=== PATIENT | male | born 1960 | race Caucasian/White ===

== ENCOUNTER 2025-05-21 18:06 | Inpatient (IN) | payer BC, SELFPAY ==
--- NOTE | ~2025-05-21 | NM_ITS ---
Nuclear Medicine Procedure: Hepatobiliary Scan Interpretation: Following intravenous administration of 5.6 mCi. of technetium 99m Choletec, serial i mages obtained reveal prompt concentration by the liver which is normal in size and without any focal abnormalities. There is normal excretion from the liver, with probable small bowel visualization. G allbladder nonvisualized at 1 hour imaging, nor at 4 hour delayed imaging. Impression: Cystic duct obstruction.. Reviewed, dictated and finalized at location M. Impression: Cystic duct obstruction..
--- NOTE | ~2025-05-21 | US_ITS ---
BILATERAL LOWER EXTREMITY VENOUS ULTRASOUND Ordering provider: Bhavin Sampson MD History: . eval for DVT . Comparison: None. FINDINGS: RIGHT LOWER EXTREMITY VEINS: --COMMON FEMORAL: Patent and free of thrombus. Normal compressibility, phasic flow and augmentation. --PROXIMAL SUPERFICIAL FEMORAL: Patent and free of thrombus. Normal compressibility, phasic flow and augmentation. --DISTAL SUPERFICIAL FEMORAL: Patent and free of thrombus. Normal compressibility, phasic flow and au gmentation. --POPLITEAL: Patent and free of thrombus. Normal compressibility, phasic flow and augmentation. --POSTERIOR TIBIAL: Patent and free of thrombus. Normal compressibility, phasic flow and augmentation . LEFT LOWER EXTREMITY VEINS: --COMMON FEMORAL: Patent and free of thrombus. Normal compressibility, phasic flow and augmentation. --PROXIMAL SUPERFICIAL FEMORAL: Patent and free of thrombus. Normal compressibility, phasic flow and augmentation. --DISTAL SUPERFICIAL FEMORAL: Patent and free of thrombus. Normal compressibility, phasic flow and au gmentation. --POPLITEAL: Patent and free of thrombus. Normal compressibility, phasic flow and augmentation. --POSTERIOR TIBIAL: Patent and free of thrombus. Normal compressibility, phasic flow and augmentation . IMPRESSION: Negative bilateral lower extremity venous US. No deep vein thrombosis. Reviewed, dictated and finalized at location A.
--- NOTE | ~2025-05-21 | US_ITS ---
Limited ABDOMINAL ULTRASOUND (Doppler ultrasound interrogation techniques used as needed for this exa m.) Ordering provider: Bhavin Sampson History: . RUQ pain . Comparison: None. FINDINGS: PANCREAS: Not visualized. PORTAL VEIN: Hepatopedal flow demonstrated. LIVER: Partially obscured by bowel gas. Normal size and echotexture. No focal hepatic lesions. Minima l Perihepatic fluid collections identified anteriorly. BILIARY DUCTS: No intra or extrahepatic biliary dilation. Common bile duct measures 4.7 mm in diamete r which is normal for patient's age. GALLBLADDER: Stone is seen in the neck of the gallbladder measuring 2.1 cm. Sludge, gallbladder wall thickening and pericholecystic fluid are noted. Wall thickness is 5 mm. Negative sonographic Avalos's sign. FREE FLUID: None visualized within the upper abdomen. IMPRESSION: Cholelithiasis with highly suggestive cholecystitis. Clinical correlation advised. Otherwise, normal limited abdominal ultrasound. Reviewed, dictated and finalized at location A. IMPRESSION: Cholelithiasis with highly suggestive cholecystitis. Clinical correlation advis ed. Otherwise, normal limited abdominal ultrasound.
--- NOTE | ~2025-05-21 | CT_ITS ---
EXAMINATION: CTA chest PE abdomen pel DATE: 05/21/2025 23:32 INDICATION: chest pain, RUQ abdominal pain TECHNIQUE: Computed tomography angiography (CTA) of the chest was performed with 100 mL Omnipaque-350 intravenous contrast timed to evaluate the pulmonary arteries, followed by portal venous phase imagi ng of the abdomen and pelvis. Coronal maximum intensity projection 3D-reconstructions were created by the technologist. The dose-length product (DLP) was 683.03 mGy-cm. Automated exposure control and it erative reconstruction technique were employed. COMPARISON: None. FINDINGS: CHEST: Lung parenchyma and airways: Mild septal thickening. Dependent scar/atelectasis. Granulomatous calcif ications. 3 mm calcification in a superior segment right lower lobe bronchus, with distal tubular opa cification. Remaining airways are clear. Calcified granulomas. Pleura: Unremarkable. Thoracic inlet, axillae and chest wall: No thyroid or soft tissue mass. Thoracic aorta: The ascending thoracic aorta is dilated to 4.0 cm. Mediastinum: Mildly dilated central pulmonary arteries as can be seen with pulmonary hypertension. Heart and pericardium: Enlarged heart. No pericardial effusion. RV/LV ratio less than 1. Coronary artery calcifications: . Thoracic bones: No acute osseous finding. Pulmonary arteries: Study quality: Exam limited by beam hardening and motion artifact limiting evalua tion of segmental and subsegmental pulmonary arteries. No central pulmonary emboli detected. Small no nocclusive subsegmental emboli are suspected in the right upper lobe (image 79/239) and the right low er lobe image 123/239). ABDOMEN/PELVIS: Liver: Enlarged. No focal lesions detected. Biliary/Gallbladder: The gallbladder is distended with surrounding inflammatory stranding mild gallbl adder wall edema. No bile duct dilation. Pancreas: No mass or duct dilation. Spleen: Normal. Adrenals: Normal right adrenal. 2.0 cm indeterminate density left adrenal mass. Kidneys: No suspicious mass, obstructing stone, or hydronephrosis. Excreted contrast in the renal jose yces could obscure small calcifications. Simple right midpole cyst. Subcentimeter left renal hypodens ities, too small to characterize but most likely represent cysts. GI tract: Small hiatal hernia. No small or large bowel dilation. Appendix not confidently visualized. Diverticulosis without diverticulitis. Mesentery/Peritoneum: Enlarged biju hepatic and peripancreatic lymph nodes. Mild mesenteric edema wi th fat halos surrounding prominent mesenteric lymph nodes. Retroperitoneum: No mass. Pelvis: Normal urinary bladder. Mild prostatomegaly. Trace free pelvic fluid Soft Tissues: Small, fat-containing umbilical and bilateral inguinal hernias. Abdominopelvic bones: No acute osseous finding. IMPRESSION: Limited evaluation of segmental and subsegmental pulmonary arteries. No central embolus detected. Sma ll subsegmental nonocclusive emboli are suspected in the right upper and lower lobes. This would repr esent a small clot burden. No CT evidence of right heart strain. 3 mm broncholith with distal mucoid impaction in the superior segment of the right lower lobe. Mild interstitial edema. Mild aortic ectasia. Cardiomegaly. Hepatomegaly. Acute cholecystitis. Fluid tracking along the common bile duct with mild duct hyperemia, presumably r eactive, unless there are additional signs or symptoms of cholangitis. Biju hepatic and peripancreatic lymphadenopathy. 2.0 cm indeterminate density left adrenal mass. Recommend nonemergent but timely outpatient adrenal C T. Mesenteric panniculitis. Reviewed, dictated and finalized at location K. IMPRESSION: Limited evaluation of segmental and subsegmental pulmonary arteries. No central embolus detected. Small subsegmental nonocclusive emboli are suspected in the right upper and lower lobes. This would represent a small clot burden. No CT ev idence of right heart strain. 3 mm broncholith with distal mucoid impaction in the superior segment of the ri ght lower lobe. Mild interstitial edema. Mild aortic ectasia. Cardiomegaly. Hepatomegaly. Acute cholecystitis. Fluid tracking along the common bile duct with mild duct h yperemia, presumably reactive, unless there are additional signs or symptoms of cholangitis. Biju hepatic and peripancreatic lymphadenopathy. 2.0 cm indeterminate density left adrenal mass. Recommend nonemergent but timel y outpatient adrenal CT. Mesenteric panniculitis.
--- NOTE | ~2025-05-21 | XR_ITS ---
EXAMINATION: XR chest 2V Exam Date/Time: 05/21/2025 18:10 CDT HISTORY: chest pain SINCE LAST NIGHT Comparison: 01/13/2018. RESULT: Lines, tubes, and devices: None. Lungs and pleura: Clear. Granulomatous calcifications. Cardiomediastinal silhouette: Stable. Other: No acute osseous or upper abdominal finding. IMPRESSION: No acute cardiopulmonary process. Reviewed, dictated and finalized at location K.
--- NOTE | 2025-05-21 18:08 | ECG_ITS ---
Test Date: 2025-05-21 18:42:49 Measurements Intervals [place] Rate: 65 P: 37 [place]: 187 QRS: -18 QRSD: 109 T: 3 QT: 387 QTc: 405 Interpretive Statements SINUS RHYTHM LEFTWARD AXIS POOR R-WAVE PROGRESSION BORDERLINE ECG No previous ECG available for comparison Electronically Signed On 05-22-2025 07:38:48 CDT by Danny Amaro M.D.
--- OUTSIDE RECORDS SUMMARY | 2025-05-21 18:08 | XMS_ITS | Referral Summary ---
Author Organization [facility] Address [address] [place] [address] Care Team Providers Care Costume Specialist Name Role Phone Bhavin Jackson MD Primary Care Provider [phone] Allergies No known active allergies Medications lisinopril-hydro CHLOROthiazide (ZESTORETIC) 10-12.5 mg per tabletIndication s:hypertension Take 1 tablet by mouth cylinder loader before breakfast Active celecoxib (CeleBREX) 200 mg capsuleIndicatio ns:Osteoarthriti s,Postoperative Acute Pain TAKE 2 PILLS WITH BREAKFAST THE DAY BEFORE SX. TAKE 1 PILL BID AFTER DISCHARGE. 10 capsule 9 Active famotidine (PEPCID) 10 mg tabletIndication s:gerd Take 10 mg by mouth 2 (two) times a day as needed for heartburn Active docosahexanoic acid/epa (FISH OIL ORAL)Indications :supplement Take 1 tablet by mouth every other day Active aspirin 325 mg enteric coated tabletIndication s:Deep Vein Thrombosis Prevention Take 1 tablet (325 mg total) by mouth 2 (two) times a day 84 tablet 9 Active oxyCODONE-acetam inophen (PERCOCET) 5-325 mg per tabletIndication s:Pain Take 1-2 tablets by mouth every 4 (four) hours as needed for pain 56 tablet 9 Active traMADol (ULTRAM) 50 mg tabletIndication s:Status post total left knee replacement Take 1 tablet (50 mg total) by mouth every 6 (six) hours as needed for pain 42 tablet 0 Active amoxicillin (amoxicillin) 500 mg tablet/capsuleIn dications:Prophy laxis, Medical Take 1 tablet/capsule (500 mg total) by mouth as directed TAKE 4 PILL 1 HOUR BEFORE DENTAL APPOINTMENT. 12 tablet/capsul e 0 Active Active Problems Problem Noted Date Diagnosed Date HTN (hypertension) 10/23/2019 Risk factors for obstructive sleep apnea 019 Primary osteoarthritis of left knee 09/30/2019 Overview (09/30/2019): Added automatically from request for surgery [id number] Surgical follow-up care 02/23/2017 Neoplasm of skin of back 02/13/2017 Overview (02/15/2018): Description: Ddx cyst. Cyst excision performed today (see procedure note). F/u path. Wound care. Suture removal in 2 wks. Neoplasm of skin of thigh 02/13/2017 Overview (02/15/2018): Description: Ddx nevus lipomatosus vs dermal nevus vs skin tag. Shave bx today. F/u path. Wound care. Eczema 01/12/2017 Overview (02/15/2018): Description: HC 1% cr OTC bid x 2 wks, if not better at next visit, will consider bx. Reassurance today. Sebaceous cyst 01/12/2017 Overview (02/15/2018): Description: noninflammed today, benign and reassurance. WIll schedule for P40 for excision due to sx. Skin neoplasm 01/12/2017 Overview (02/15/2018): Description: L post thigh- ddx: skin tag vs nevus. Benign and reassurance but will schedule for shave removal due to sx Annotation: Back Left posterior leg Social History Tobacco Use Types Packs/Day Years Used Date Smoking Tobacco: Never Smokeless Tobacco: Never Sex and Gender Information Value Date Recorded Sex Assigned at Not on file Legal Sex Male 6:34 AM COMMERCIAL CENSUS TAKER Gender Identity Not on file Sexual Orientation Not on file Last Filed Vital Signs Vital Sign Reading Time Taken Comments Blood Pressure 116/69 11/04/2019 2:00 PM COMMERCIAL CENSUS TAKER Pulse 75 11/04/2019 2:00 PM COMMERCIAL CENSUS TAKER Temperature 36.2 C (97.2 F) 09/15/2020 2:06 PM COMMERCIAL CENSUS TAKER Respiratory Rate 19 11/04/2019 2:00 PM COMMERCIAL CENSUS TAKER Oxygen Saturation 94% 11/04/2019 2:00 PM COMMERCIAL CENSUS TAKER Inhaled Oxygen Concentration - - Weight 93.7 kg (206 lb 9.6 oz) 11/04/2019 11:00 AM COMMERCIAL CENSUS TAKER Height 177.8 cm (5' 10) 11/04/2019 11:00 AM COMMERCIAL CENSUS TAKER Body Mass Index 29.64 11/04/2019 11:00 AM COMMERCIAL CENSUS TAKER Plan of Treatment Not on file Medical Devices Implanted Type Area Servicing Rep Device Identifier Shelf Expiration Date Model / Serial / Lot [employer]ine [employer] [id number] Persona Cruciate Retaining Knee Left 10 Standard Component - S - [id number] Implanted:Qty: 1 on 11/04/2019 by Bhavin Nick MD at [facility] Other - see comments Left: Knee [employer] [id number] 05/04/2029 [id number] / / [id number] [employer] [id number] Persona 16mm Cruciate Retain Knee Left 8-11 Ef Insert Articular Latex Free - S - [id number] Implanted:Qty: 1 on 11/04/2019 by Bhavin Nick MD at [facility] Other - see comments Left: Knee [employer] [id number] 02/03/2024 [id number] / / [id number] [employer] [id number] Persona 2 Peg Knee Left E Baseplate Tibial Trabecular Metal - S - [id number] Implanted:Qty: 1 on 11/04/2019 by Bhavin Nick MD at [facility] Other - see comments Left: Knee [employer] [id number] 09/04/2029 [id number] / / [id number] Insurance [facility] PLUS [place] [id number] Advance Directives For more information, please contact: [phone] * Full Code (Latest Code Status on File) Date Activated Date Inactivated Comments 11/04/2019 10:50 AM 11/05/2019 12:47 AM Care Teams Costume Specialist Relationship Specialty Start Date End Date Bhavin Jackson MD [address] [facility] [address] [place] [address] PCP - General Internal Medicine 08/28/19
--- OUTSIDE RECORDS SUMMARY | 2025-05-21 18:08 | XMS_ITS | Clinical Summary ---
Author Organization [facility] Address [address] [place] [address] Care Team Providers Care Welder/Fitter Name Role Phone Bhavin Jackson MD Primary Care Provider [phone] Allergies No known active allergies Medications lisinopril-hydro CHLOROthiazide (ZESTORETIC) 10-12.5 mg per tabletIndication s:hypertension Take 1 tablet by mouth machine egg washer before breakfast Active celecoxib (CeleBREX) 200 mg [...] (09/30/2019): Added automatically from request for surgery [id number] Surgical follow-up care 02/23/2017 Neoplasm of skin [...] to sx Annotation: Back Left posterior leg Surgical History Surgery Date Site/Laterality Comments KNEE ARTHROSCOPY SHOULDER SURGERY COLONOSCOPY Medical History Medical History Date Comments Hypertension Osteoarthritis GERD (gastroesophageal reflux disease) Family History Medical History Relation Name Comments Cancer Father Heart disease Father Anesthesia problems Neg Hx Relation Name Status Comments Father Social History Tobacco Use Types Packs/Day Years Used Date Smoking Tobacco: Never Smokeless Tobacco: Never Sex and Gender Information Value Date Recorded Sex Assigned at Not on file Legal Sex Male 6:34 AM WINE PASTEURIZER Gender Identity Not on file Sexual Orientation Not on file Obstetrics History Last Filed Vital Signs Vital Sign Reading Time Taken Comments Blood Pressure 116/69 11/04/2019 2:00 PM WINE PASTEURIZER Pulse 75 11/04/2019 2:00 PM WINE PASTEURIZER Temperature 36.2 C (97.2 F) 09/15/2020 2:06 PM WINE PASTEURIZER Respiratory Rate 19 11/04/2019 2:00 PM WINE PASTEURIZER Oxygen Saturation 94% 11/04/2019 2:00 PM WINE PASTEURIZER Inhaled Oxygen Concentration - - Weight 93.7 kg (206 lb 9.6 oz) 11/04/2019 11:00 AM WINE PASTEURIZER Height 177.8 cm (5' 10) 11/04/2019 11:00 AM WINE PASTEURIZER Body Mass Index 29.64 11/04/2019 11:00 AM WINE PASTEURIZER Plan of Treatment Not on file Medical Devices Implanted Type Area Certified Court Interpreter Device Identifier Shelf Expiration Date Model / Serial / Lot [employer] [id number] Persona Cruciate Retaining Knee Left 10 Standard Component - S - [id number] Implanted:Qty: 1 on 11/04/2019 by Bhavin Nick MD at [facility] Other - see comments Left: Knee [employer] [id number] 05/04/2029 [id number] / / [id number] [employer] [id number] Persona 16mm Cruciate Retain Knee Left 8-11 Ef Insert Articular Latex Free - S - [id number] Implanted:Qty: 1 on 11/04/2019 by Bhavin Nick MD at [facility] Other - see comments Left: Knee [employer] [id number] 02/03/2024 [id number] / / [id number] [employer] [id number] Persona 2 Peg Knee Left E Baseplate Tibial Trabecular Metal - S - [id number] Implanted:Qty: 1 on 11/04/2019 by Bhavin Nick MD at [facility] Other - see comments Left: Knee [employer] [id number] 09/04/2029 [id number] / / [id number] Insurance [facility] PL[facility] PL[facility] Advance Directives For more information, please contact: [phone] * Full Code (Latest Code Status on File) Date Activated Date Inactivated Comments 11/04/2019 10:50 AM 11/05/2019 12:47 AM Care Teams Welder/Fitter Relationship Specialty Start Date End Date Bhavin Jackson MD [address] [place] [address] PCP - General Internal Medicine 08/28/19
--- OUTSIDE RECORDS SUMMARY | 2025-05-21 18:08 | XMS_ITS | Encounter Summary ---
Author Organization [facility] Healthcare Address [address] [place] [address] Care Team Providers Care Chief Jailer Name Role Phone Bhavin Jackson MD Primary Care Provider [phone] Encounter Details Date Type Department Care Team (Late st Contact Info) Description 11/06/2019 Documentation [facility] Case Management [address] [place] [address] Lakesha Saez RN Social History Tobacco Use Types Packs/Day Years Used Date Smoking Tobacco: Never Smokeless Tobacco: Never Sex and Gender Information Value Date Recorded Sex Assigned at Not on file Legal Sex Male 6:34 AM DIRECTOR DIGITAL COMMUNICATIONS Gender Identity Not on file Sexual Orientation Not on file documented as of this encounter Plan of Treatment Not on file documented as of this encounter Visit Diagnoses Not on filedocumented in this encounter Care Teams Chief Jailer Relationship Specialty Start Date End Date Bhavin Jackson MD [address] [facility] [address] [place] [address] PCP - General Internal Medicine 08/28/19 documented as of this encounter
[2025-05-21 18:24] VITALS: BP 126/83; PULSE 69; RESP 16; TEMP 36.4; O2SAT 100
[2025-05-21 18:50] LABS: Hematocrit 37.9 % (42.0-52.0); Hemoglobin 12.5 g/dL (14.0-18.0); Immature Granulocyte Percent A 0.5 % (0-0.5); Lymphocytes Absolute Auto 1.49 K/mm3 (0.9-3.2); Mean Corpuscular HGB Conc 33.0 g/dl (32-36); Mean Corpuscular Hemoglobin 31.9 pg (26-34); Mean Corpuscular Volume 96.7 fl (80-100); Nucleated Red Blood Cells Absolute Auto 0.000 K/mm3 (0.0-0.012); Nucleated Red Blood Cells Perc 0.0 % (0.0-0.2); Platelet Count Result 338 k/mm3 (150-375); Red Blood Count 3.92 M/mm3 (4.6-6.20); White Blood Count 13.3 K/mm3 (4.5-10.0)
[2025-05-21 19:01] LABS: INR 1.1; Prothrombin Time 14.1 Seconds (11.1-14.7)
[2025-05-21 19:02] LABS: Partial Thromboplastin Time 34.4 Seconds (22.3-36.8)
[2025-05-21 19:14] LABS: Troponin I < 0.012 ng/mL (0.000-0.034)
[2025-05-21 19:23] LABS: Alanine Aminotransferase 16 U/L (6-50); Albumin Level 4.3 g/dL (3.5-5.1); Alkaline Phosphatase 53 U/L (38-126); Anion Gap 13 mmol/L (4-12); Aspartate Amino Transferase 28 U/L (17-59); Bilirubin,Total 0.6 mg/dL (0.2-1.3); Blood Urea Nitrogen 16 mg/dL (9-20); Calcium 9.1 mg/dL (8.4-10.2); Carbon Dioxide 22 mmol/L (22-30); Chloride 101 mmol/L (98-107); Estimated CRCL calculation 88 ml/min; Estimated Glomerular Filt Rate > 60; Glucose 114 mg/dL (65-110); Lipase 79 U/L (23-300); Potassium 3.5 mmol/L (3.4-5.0); Sodium 136 mmol/L (137-145); Total Protein 7.7 g/dL (6.3-8.2)
--- NOTE | 2025-05-21 22:01 | ECG_ITS ---
Test Date: 2025-05-21 22:19:15 Measurements Intervals [place] Rate: 70 P: 33 SC: 177 QRS: -23 QRSD: 121 T: 11 QT: 414 QTc: 448 Interpretive Statements SINUS RHYTHM POOR R-WAVE PROGRESSION LEFTWARD AXIS BORDERLINE ECG Compared to ECG 05/21/2025 18:42:49 NO DIFFERENCE Electronically Signed On 05-22-2025 07:45:00 CDT by Danny Amaro M.D.
--- OUTSIDE RECORDS SUMMARY | 2025-05-21 22:31 | XMS_ITS | Encounter Summary ---
Author Organization [facility] Healthcare Address [address] [place] [address] Care Team Providers Care Welder Tool And Die Name Role Phone Bhavin Jackson MD Primary Care Provider [phone] Encounter Details Date Type Department Care Team (Late st Contact Info) Description 11/06/[address] [facility] Case Management [address] [place] [address] Lakesha Saez RN Social History Tobacco Use Types Packs/Day Years Used Date Smoking Tobacco: Never Smokeless Tobacco: Never Sex and Gender Information Value Date Recorded Sex Assigned at Not on file Legal Sex Male 6:34 AM CASH SURRENDER CALCULATOR Gender Identity Not on file Sexual Orientation Not on file documented as of this encounter Plan of Treatment Not on file documented as of this encounter Visit Diagnoses Not on filedocumented in this encounter Care Teams Welder Tool And Die Relationship Specialty Start Date End Date Bhavin Jackson MD [address] [facility] [address] [place] [address] PCP - General Internal Medicine 08/28/19 documented as of this encounter
--- OUTSIDE RECORDS SUMMARY | 2025-05-21 22:31 | XMS_ITS | Clinical Summary ---
Author Organization [facility] Address [address] [place] [address] Care Team Providers Care Seals Engraver Name Role Phone Bhavin Jackson MD Primary Care Provider [phone] Allergies No known active allergies Medications lisinopril-hydro CHLOROthiazide (ZESTORETIC) 10-12.5 mg per tabletIndication s:hypertension Take 1 tablet by mouth sanitary inspector before breakfast Active celecoxib (CeleBREX) 200 mg [...] (09/30/2019): Added automatically from request for surgery [id number] Surgical follow-up care 02/23/2017 Neoplasm of skin [...] on file Legal Sex Male 6:34 AM SENIOR ASP NET DEVELOPER Gender Identity Not on file Sexual Orientation Not on file Obstetrics History Last Filed Vital Signs Vital Sign Reading Time Taken Comments Blood Pressure 116/69 11/04/2019 2:00 PM SENIOR ASP NET DEVELOPER Pulse 75 11/04/2019 2:00 PM SENIOR ASP NET DEVELOPER Temperature 36.2 C (97.2 F) 09/15/2020 2:06 PM SENIOR ASP NET DEVELOPER Respiratory Rate 19 11/04/2019 2:00 PM SENIOR ASP NET DEVELOPER Oxygen Saturation 94% 11/04/2019 2:00 PM SENIOR ASP NET DEVELOPER Inhaled Oxygen Concentration - - Weight 93.7 kg (206 lb 9.6 oz) 11/04/2019 11:00 AM SENIOR ASP NET DEVELOPER Height 177.8 cm (5' 10) 11/04/2019 11:00 AM SENIOR ASP NET DEVELOPER Body Mass Index 29.64 11/04/2019 11:00 AM SENIOR ASP NET DEVELOPER Plan of Treatment Not on file Medical Devices Implanted Type Area School Manager Device Identifier Shelf Expiration Date Model / Serial / Lot [employer] [id number] Persona Cruciate Retaining Knee Left 10 Standard Component - S - [id number] Implanted:Qty: 1 on 11/04/2019 by Bhavin Nick MD at [facility] Other - see comments Left: Knee [employer] [id number] 05/04/2029 [id number] / / [id number] [employer] [id number] Persona 16mm Cruciate Retain Knee Left 8-11 Ef Insert Articular Latex Free - S - [id number] Implanted:Qty: 1 on 11/04/2019 by Bhavin Nick MD at [facility] Other - see comments Left: Knee [employer] [id number] 02/03/2024 [id number] / / [id number] [employer] [id number] Persona 2 Peg Knee Left E Baseplate Tibial Trabecular Metal - S - [id number] Implanted:Qty: 1 on 11/04/2019 by Bhavin Nick MD at [facility] Other - see comments Left: Knee [employer] [id number] 09/04/2029 [id number] / / [id number] Insurance [facility] PL[facility] PL[facility] Advance Directives For more information, please contact: [phone] * Full Code (Latest Code Status on File) Date Activated Date Inactivated Comments 11/04/2019 10:50 AM 11/05/2019 12:47 AM Care Teams Seals Engraver Relationship Specialty Start Date End Date Bhavin Jackson MD [address] [place] [address] PCP - General Internal Medicine 08/28/19
--- OUTSIDE RECORDS SUMMARY | 2025-05-21 22:31 | XMS_ITS | Referral Summary ---
Author Organization [facility] Address [address] [place] [address] Care Team Providers Care Content Production Specialist Name Role Phone Bhavin Jackson MD Primary Care Provider [phone] Allergies No known active allergies Medications lisinopril-hydro CHLOROthiazide (ZESTORETIC) 10-12.5 mg per tabletIndication s:hypertension Take 1 tablet by mouth alodize machine helper before breakfast Active celecoxib (CeleBREX) 200 mg [...] (09/30/2019): Added automatically from request for surgery [id number] Surgical follow-up care 02/23/2017 Neoplasm of skin [...] on file Legal Sex Male 6:34 AM FIGHTER PILOT Gender Identity Not on file Sexual Orientation Not on file Last Filed Vital Signs Vital Sign Reading Time Taken Comments Blood Pressure 116/69 11/04/2019 2:00 PM FIGHTER PILOT Pulse 75 11/04/2019 2:00 PM FIGHTER PILOT Temperature 36.2 C (97.2 F) 09/15/2020 2:06 PM FIGHTER PILOT Respiratory Rate 19 11/04/2019 2:00 PM FIGHTER PILOT Oxygen Saturation 94% 11/04/2019 2:00 PM FIGHTER PILOT Inhaled Oxygen Concentration - - Weight 93.7 kg (206 lb 9.6 oz) 11/04/2019 11:00 AM FIGHTER PILOT Height 177.8 cm (5' 10) 11/04/2019 11:00 AM FIGHTER PILOT Body Mass Index 29.64 11/04/2019 11:00 AM FIGHTER PILOT Plan of Treatment Not on file Medical Devices Implanted Type Area Bulk Tank Car Unloader Device Identifier Shelf Expiration Date Model / Serial / Lot Maxine [employer] [id number] Persona Cruciate Retaining Knee Left 10 Standard Component - S - [id number] Implanted:Qty: 1 on 11/04/2019 by Bhavin Nick MD at [facility] Other - see comments Left: Knee [employer] [id number] 05/04/2029 [id number] / / [id number] [employer] [id number] Persona 16mm Cruciate Retain Knee Left 8-11 Ef Insert Articular Latex Free - S - [id number] Implanted:Qty: 1 on 11/04/2019 by Bhavin Nick MD at [facility] Other - see comments Left: Knee [employer] [id number] 02/03/2024 [id number] / / [id number] [employer]ine [employer] [id number] Persona 2 Peg Knee Left E Baseplate Tibial Trabecular Metal - S - [id number] Implanted:Qty: 1 on 11/04/2019 by Bhavin Nick MD at [facility] Other - see comments Left: Knee [employer] [id number] 09/04/2029 [id number] / / [id number] Insurance [facility] PLUS [facility] PLUS [facility] CHO[facility] PLUS [place] [id number] Advance Directives For more information, please contact: [phone] * Full Code (Latest Code Status on File) Date Activated Date Inactivated Comments 11/04/2019 10:50 AM 11/05/2019 12:47 AM Care Teams Content Production Specialist Relationship Specialty Start Date End Date Bhavin Jackson MD [address] [facility] [address] [place] [address] PCP - General Internal Medicine 08/28/19
--- NOTE | 2025-05-21 22:33 | ED.CHESTPAIN ---
HPI - Chest Pain General Chief Complaint: Chest Pain Stated Complaint: chest pain Time Seen by Provider: 05/21/25 21:53 History of Present Illness HPI narrative: Patient is a 64-year-old male who presents to the ER with chest pain that started earlier today. He reports the chest pain has now resolved but the pain has moved to his right upper abdomen. Patient reports on Sunday he had a dental procedure done where he had a crown placed. He reports he was given 2 mg of Ativan p.o. the night before the procedure and then took another 2 mg of Ativan the morning of the procedure, as prescribed by his dentist. Patient's reports he has had ?brain fog,excessive sleeping and increased fatigue for the past 48 hours since he took the medication. He endorses a history high blood pressure and glaucoma. Patient denies any shortness of breath, back pain, or recent fevers. Related Data Allergies Allergy/AdvReac Type Severity Reaction Status Date / Time No Known Allergies Allergy Unverified 01/13/18 05:01 Review of Systems Review of Systems: All systems reviewed & are unremarkable except as noted in HPI and below PMFSH Family History Family History Other Diabetes mellitus Family history of primary malignant neoplasm of liver Hypertension Social History Social History Smoking status: Never smoker Alcohol intake: current Exam Narrative: GENERAL: Well appearing, well-nourished, non-toxic, in no acute distress. HEAD: Normocephalic, atraumatic. NECK: Supple. No adenopathy, no masses. RESPIRATORY: Airway patent, respirations nonlabored. Clear to auscultation bilaterally, no rales, rhonchi, wheezing. CARDIOVASCULAR: Regular rate and rhythm without murmurs, rubs, or gallops. Peripheral pulses 2+ and equal bilaterally. ABDOMINAL: Soft, + tender RUQ, nondistended, no hepatosplenomegaly. Normoactive BS, + Avalos's test MUSCULOSKELETAL: Moves all extremities. Strength/ROM intact without gross deformities. SKIN: Warm, dry, normal color. No rashes. NEURO: A&O X3. Speech clear. Cranial nerves II-XII intact. No ataxic movements. PSYCHIATRIC: Appropriate mood and affect. Normal interaction. Course Vital Signs Vital signs: Vital Signs Temperature 36.4 C 05/21/25 18:24 Pulse Rate 69 05/21/25 18:24 Respiratory Rate 16 05/21/25 18:24 Blood Pressure 126/83 05/21/25 18:24 Pulse Oximetry 100 05/21/25 18:24 Temperature 36.4 C 05/21/25 18:24 Pulse Rate 81 05/22/25 00:17 Respiratory Rate 22 H 05/22/25 00:17 Blood Pressure 152/82 H 05/22/25 00:17 Pulse Oximetry 96 05/22/25 00:17 Oxygen Delivery Room Air 05/21/25 23:16 MDM - Chest Pain MDM Narrative Medical decision making narrative: Patient is a 64-year-old male who presents to the ER with chest pain that started earlier today. He reports the chest pain has now resolved but the pain has moved to his right upper abdomen. Patient reports on Sunday he had a dental procedure done where he had a crown placed. He reports he was given 2 mg of Ativan p.o. the night before the procedure and then took another 2 mg of Ativan the morning of the procedure, as prescribed by his dentist. Patient's reports he has had ?brain fog,excessive sleeping and increased fatigue for the past 48 hours since he took the medication. He endorses a history high blood pressure and glaucoma. Patient denies any shortness of breath, back pain, or recent fevers. Labs Ordered: CBC, CMP, PTT, INR, troponin, proBNP, TSH, D-dimer, lactic acid, lipase Imaging Ordered: CTA chest PE abdomen pelvis scan Medications Ordered: Heparin bolus, heparin drip, 1 L normal saline IV bolus x3, Flagyl IV, ceftriaxone IV, morphine 4 mg IV Results: Patient's CT indicates limited evaluation of segmental and subsegmental pulmonary arteries. No central embolus detected. Small subsegmental nonocclusive emboli are suspected in the right upper and lower lobes. This would represent a small clot burden. No CT evidence of right heart strain. 3 mm broncholith with distal mucoid impaction in the superior segment of the right lower lobe. Mild interstitial edema. Mild aortic ectasia. Cardiomegaly. Hepatomegaly. Acute cholecystitis. Fluid tracking along the common bile duct with mild duct hyperemia, presumably reactive, unless there are additional signs or symptoms of cholangitis. Biju hepatic and peripancreatic lymphadenopathy. 2.0 cm indeterminate density left adrenal mass. Recommend nonemergent but timely outpatient adrenal CT. Mesenteric panniculitis. Diagnosis: Pulmonary embolism, acute cholecystitis Consults: 0040- Spoke with general surgery, Dr. Sampson, to make him aware of pt's acute cholecystitis. 0100- Spoke with hospitalist, Dr. Erickson, who was in agreement with admitting patient to the hospital as long as pulmonology and General surgery are consulted. General surgery has already been consulted at this time, but will contact pulmonology. Dr. Erickson verbalize concerns about the broncholith on patient's CT scan and like to ensure pulmonology is on board with admitting patient to this hospital. 0115- Spoke with pulmonology, Dr. Tran, who reports the patient will not need intervention for the broncholith noted on his CT. Dr. Tran confirms pt is stable enough to remain at our facility. CRITICAL CARE ADDENDUM: Indication: Pulmonary embolism Time type: intermittent I provided a total of 55 minutes of critical care excluding separately billable procedures. This includes time w/ EMS, initial bedside evaluation, reviewing old records, review of testing done while under my care, discussion w/ the family, nurses, consultant [employer] vice president [employer] (ex ) and guiding the patient?s care while in the emergency department. Approximate time distribution: 15 minutes ? Initial evaluation, d/w involved parties, attempting to gather old records. 10 minutes ? Documenting medical record 10 minutes ? Review of results (EKGs, labs, imaging) 10 minutes ? Serial repeat bedside evaluation 10 minutes ? Discussing case with multiple providers Please see main chart for details. Excludes separately billable procedures. Patient Education/Shared MDM: Results of lab work and imaging shared with patient. He endorses improvement of symptoms following pain medication administration. It was suggested patient be admitted to the hospital for further evaluation and treatment. Patient and his verbalized understanding and are in agreement with plan. Differential Diagnosis Differential diagnosis: Likely atypical chest pain, costochondritis, chest pain and other (Pulmonary embolism, cholecystitis, GERD) Lab Data Attestation: I reviewed the patient's lab results. 05/21/25 18:43 05/21/25 18:44 Labs: Lab Results 05/21/25 05/21/25 05/21/25 Range/Units 18:43 18:44 22:20 WBC 13.3 H (4.5-10.0) K/mm3 RBC 3.92 L (4.6-6.20) M/mm3 Hgb 12.5 L (14.0-18.0) g/dL Hct 37.9 L (42.0-52.0) % MCV 96.7 (80-100) fl MCH 31.9 (26-34) pg MCHC 33.0 (32-36) g/dl RDW 14.5 (11.5-14.5) % Plt Count 338 (150-375) k/mm3 MPV 9.7 (7.4-10.4) fl Immature Gran % (Auto) 0.5 (0-0.5) % Neut % (Auto) 72.3 (45.5-73.1) % Lymph % (Auto) 11.2 L (18.3-44.2) % [place] % (Auto) 13.4 H (2.6-8.5) % Eos % (Auto) 2.0 (0-4.4) % Baso % (Auto) 0.6 (0.2-1.2) % Lymph # (Auto) 1.49 (0.9-3.2) K/mm3 [place] # (Auto) 1.8 H (0.1-0.6) K/mm3 Eos # (Auto) 0.3 (0-0.3) K/mm3 Baso # (Auto) 0.1 (0.0-0.1) K/mm3 Abs Immat Gran (auto) 0.06 H (0.00-0.031) K/mm3 Absolute Neuts (auto) 9.6 H (1.3-6.7) K/mm3 Absolute Nucleated RBC 0.000 (0.0-0.012) K/mm3 Nucleated RBC % 0.0 (0.0-0.2) % PT 14.1 14.1 (11.1-14.7) Seconds INR 1.1 1.1 APTT 34.4 32.6 (22.3-36.8) Seconds D-Dimer 0.64 H (<0.48) ug/mL Sodium 136 L (137-145) mmol/L Potassium 3.5 (3.4-5.0) mmol/L Chloride 101 (98-107) mmol/L Carbon Dioxide 22 (22-30) mmol/L Anion Gap 13 H (4-12) mmol/L BUN 16 (9-20) mg/dL Creatinine 0.76 (0.7-1.3) mg/dL Estim Creat Clear Calc 88 ml/min Estimated GFR > 60 (59 - ) Glucose 114 H (65-110) mg/dL Lactic Acid 0.8 (0.7-2.0) mmol/L Calcium 9.1 (8.4-10.2) mg/dL Total Bilirubin 0.6 (0.2-1.3) mg/dL AST 28 (17-59) U/L ALT 16 (6-50) U/L Alkaline Phosphatase 53 (38-126) U/L Troponin I < 0.012 < 0.012 (0.000-0.034) ng/mL NT-Pro-B Natriuret Pep 85 (19.9-100) pg/mL Total Protein 7.7 (6.3-8.2) g/dL Albumin 4.3 (3.5-5.1) g/dL Lipase 79 (23-300) U/L TSH (Reflex) 0.971 (0.465-4.68) uIU/mL Imaging Data Attestation: I personally reviewed and interpreted this imaging study as follows: Radiologist's impression: Impressions Chest X-Ray 05/21/25 18:27 IMPRESSION: No acute cardiopulmonary process. Chest/Abdomen/Pelvis CTA 05/21/25 23:44 IMPRESSION: Limited evaluation of segmental and subsegmental pulmonary arteries. No central embolus detected. Small subsegmental nonocclusive emboli are suspected in the right upper and lower lobes. This would represent a small clot burden. No CT evidence of right heart strain. 3 mm broncholith with distal mucoid impaction in the superior segment of the right lower lobe. Mild interstitial edema. Mild aortic ectasia. Cardiomegaly. Hepatomegaly. Acute cholecystitis. Fluid tracking along the common bile duct with mild duct hyperemia, presumably reactive, unless there are additional signs or symptoms of cholangitis. Biju hepatic and peripancreatic lymphadenopathy. 2.0 cm indeterminate density left adrenal mass. Recommend nonemergent but timely outpatient adrenal CT. Mesenteric panniculitis. Critical Care Time Critical Care Time Total Critical Care Time: 55 Discharge Plan Discharge Clinical Impression: Pulmonary embolism, Acute cholecystitis Patient Disposition: Still a Patient Condition: Serious Patient Language: Greenlandic Follow-up/Referrals: Mona,Fred Hughes MD [Primary Care Provider] -
[2025-05-21 22:42] LABS: INR 1.1; Partial Thromboplastin Time 32.6 Seconds (22.3-36.8); Prothrombin Time 14.1 Seconds (11.1-14.7)
[2025-05-21 22:45] LABS: NT Pro B Type Natriuretic Pept 85 pg/mL (19.9-100)
[2025-05-21 22:48] LABS: Troponin I < 0.012 ng/mL (0.000-0.034)
[2025-05-21 23:02] VITALS: BP 139/78; PULSE 77; RESP 21; O2SAT 96
[2025-05-21] MEDS: ASPIRIN 81 MG CHEWABLE TABLET 324 MG PO (23:14)
[2025-05-21 23:16] VITALS: BP 142/79; PULSE 87; PULSE 90; RESP 20; O2SAT 96
[2025-05-21 23:31] LABS: Thyroid Stimulating Hormone Reflex 0.971 uIU/mL (0.465-4.68)
[2025-05-22] VITALS (15 sets, daily range): BP systolic 128–152; BP diastolic 71–96; PULSE 68–106; RESP 16–26; TEMP 36.4–37.3; O2SAT 94–99; BMI 25.8
[2025-05-22] MEDS: MORPHINE SULFATE (*CRX) 4 MG/ML INJ IV PUSH ×3 (00:51→12:31)
[2025-05-22] MEDS: HEPARIN SOD/D5W 100 UNITS/ML 25,000 UNITS/250 ML BAG 14 UNITS IV CONT (01:10)
[2025-05-22] MEDS: SODIUM CHLORIDE 0.9% IV 1,000 ML 999 ML IV CONT ×2 (01:23→02:06)
[2025-05-22 02:22] LABS: CRP 5.2 mg/dL (<1.0)
[2025-05-22 02:30] LABS: Troponin I < 0.012 ng/mL (0.000-0.034)
--- NOTE | 2025-05-22 03:13 | ADMGEN ---
This patient, Brennen Roberts, was admitted to Medical Room 342-01. Patient/family oriented to hospital policies and general routines including ID bracelet, bed and alarms, visiting hours, pain management, procedures, bathroom and other care routines, personal items, smoking policy, room service/diet, and visiting hours. Information on how to activate the Rapid Response Team has been discussed. Patient/Family are encouraged to report perceived risks to care and to ask questions if they do not understand what they are told or what they should do.
[2025-05-22] MEDS: HYDROmorphone HCL INJ (*CRX) 2 MG/ML VIAL 0.5 MG IV PUSH (04:39)
[2025-05-22] MEDS: metroNIDAZOLE 500 MG/ISO 100ML 500 MG/100 ML BAG 100 MG IVPB (04:39)
[2025-05-22] MEDS: cefTRIAXone 1 GM in SODIUM CHLORIDE 0.9% IV 50 ML 100 ML IVPB (05:33)
[2025-05-22] MEDS: SODIUM CHLORIDE 0.9% IV 400 ML 999 ML IV CONT (05:49)
[2025-05-22 07:18] LABS: Hematocrit 37.5 % (42.0-52.0); Hemoglobin 12.6 g/dL (14.0-18.0); Immature Granulocyte Percent A 0.6 % (0-0.5); Lymphocytes Absolute Auto 1.04 K/mm3 (0.9-3.2); Mean Corpuscular HGB Conc 33.6 g/dl (32-36); Mean Corpuscular Hemoglobin 32.4 pg (26-34); Mean Corpuscular Volume 96.4 fl (80-100); Nucleated Red Blood Cells Absolute Auto 0.000 K/mm3 (0.0-0.012); Nucleated Red Blood Cells Perc 0.0 % (0.0-0.2); Platelet Count Result 288 k/mm3 (150-375); Red Blood Count 3.89 M/mm3 (4.6-6.20); White Blood Count 18.8 K/mm3 (4.5-10.0)
--- NOTE | 2025-05-22 07:30 | PC.NURSE ---
Patient off of unit to US
[2025-05-22 07:33] LABS: INR 1.3; Prothrombin Time 16.0 Seconds (11.1-14.7)
[2025-05-22 07:41] LABS: Partial Thromboplastin Time 169.9 Seconds (22.3-36.8)
--- NOTE | 2025-05-22 07:51 | ECHO_ITS ---
Patient Info Name: Brennen Roberts Age: 64 years : 1960 Gender: Male Ht: 70 in Wt: 180 lbs BSA: 2.02 m2 HR: 70 bpm BP: 149 / 83 mmHg Heart Rhythm: Sinus Rhythm Technical Quality: Fair Exam Date: 05/22/2025 11:10 AM Patient Status: O Admit Date: 05/22/2025 Exam Type: CA echo doppler color flow Complete two-dimensional, color flow and Doppler transthoracic echocardiogram is performed. Staff Referring Physician: Bhavin Sampson MD Damper Maker: Adilene Frias Attending Provider: Vero Erickson Summary 1. Complete two-dimensional, color flow and Doppler transthoracic echocardiogram is performed. 2. Normal right and left ventricular size and systolic function. 3. No aortic or mitral valve disease. 4. Trivial amount of tricuspid regurgitation with velocities that indicate normal right ventricular systolic pressure. 5. No septal flattening, no stigmata of pulmonary hypertension. Left Ventricle Left ventricular chamber dimension is normal. Left ventricular systolic function is normal, estimated at 65-70. The left ventricular diastolic function is normal. Right Ventricle Right ventricular chamber dimension is normal. Left Atria Left atrial chamber dimension is normal. Right Atria Right atrial chamber dimension is normal. Aortic Valve The aortic valve is trileaflet. There is mild aortic valve sclerosis. Pulmonic Valve The pulmonic valve is normal. Mitral Valve The mitral valve has normal leaflets. Tricuspid Valve The tricuspid valve leaflets are normal. There is trace tricuspid valve regurgitation. No pulmonary hypertension, estimated pulmonary arterial systolic pressure is 35 mmHg. Pericardium/Pleural The pericardium appears normal. Aorta The aortic root size at the sinus of Valsalva is normal. Left Ventricular Outflow Tract Name Value Normal LVOT 2D LVOT Diameter 2.2 cm LVOT Doppler LVOT Peak Velocity 141 cm/s LVOT Peak Gradient 8 mmHg LVOT Mean Gradient 4 mmHg LVOT VTI 28 cm LVOT VTI/AV VTI Ratio 1.0 LVOT Stroke Volume 102 ml LVOT CO 7.3 l/min LVOT CI 3.6 l/min/m2 Pulmonic Valve Name Value Normal RVOT Doppler RVOT Peak Velocity 112 cm/s RVOT Peak Gradient 5 mmHg PV Doppler PV Peak Velocity 115 cm/s PV Peak Gradient 5 mmHg Mitral Valve Name Value Normal MV Diastolic Function MV E Peak Velocity 90 cm/s MV A Peak Velocity 85 cm/s MV E/A 1.1 MV Decel Time (PW) 221 ms Tricuspid Valve Name Value Normal TV Regurgitation Doppler TR Peak Velocity 251 cm/s TR Peak Gradient 24 mmHg Estimated PAP/RSVP RA Pressure 10 mmHg <=5 PA Systolic Pressure 35 mmHg <36 RV Systolic Pressure 35 mmHg <36 TV Annular TDI TV Lateral Constance s' Velocity 23.0 cm/s >=9.5 Aorta Name Value Normal Ascending Aorta Ao Root Diameter (MM) 3.5 cm Ao Root Diam Index (MM) 1.7 cm/m2 Aortic Valve Name Value Normal AV Doppler AV Peak Velocity 159 cm/s AV Peak Gradient 10 mmHg AV Mean Gradient 5 mmHg AV VTI 28 cm AV Area (Cont Eq VTI) 3.7 cm2 >=3.0 AV Area (Cont Eq Jv) 3.3 cm2 AV DI (Jv) 0.89 AV Regurgitation 2D LVOT Area 3.7 cm2 Ventricles Name Value Normal LV Dimensions 2D/MM IVS Diastolic Thickness (2D) 1.2 cm 0.6-1.0 IVS Diastole Thickness (MM) 1.2 cm 0.6-1.0 LVID Diastole (2D) 4.5 cm 4.2-5.8 LVID Diastole (MM) 4.9 cm 4.2-5.8 LVIW Diastolic Thickness (2D) 1.1 cm 0.6-1.0 LVIW Diastolic Thickness (MM) 1.1 cm 0.6-1.0 LVID Systole (2D) 2.2 cm 2.5-4.0 LVID Systole (MM) 2.7 cm 2.5-4.0 LVOT Diameter 2.2 cm LV Mass (2D Cubed) 181.57 g 88.00-224.00 LV Mass Index (2D Cubed) 90 g/m2 49-115 Relative Wall Thickness (2D) 0.50 <=0.42 LV Mass (MM Cubed) 210.85 g 88.00-224.00 LV Mass Index (MM Cubed) 104 g/m2 49-115 Relative Wall Thickness (MM) 0.47 LV Fractional Shortening/Ejection Fraction 2D/MM LV Fractional Shortening (2D) 51 % 25-43 LV Fractional Shortening (MM) 45 % 25-43 LV EF (MM Teichholz) 76 % LV EF (2D Teichholz) 82 % LV Diastolic Volume (4C MOD) 87 ml LV EF (4C MOD) 70 % LV Diastolic Volume (2C MOD) 70 ml LV EF (2C MOD) 72 % LV Diastolic Volume (BP MOD) 79 ml 62-150 LV Diastolic Volume Index (BP MOD) 39 ml/m2 34-74 LV Systolic Volume (BP MOD) 23 ml 21-61 LV Systolic Volume Index (BP MOD) 11 ml/m2 11-31 LV EF (BP MOD) 71 % 52-72 LV Diastolic Length (4C) 7.7 cm LV Systolic Length (4C) 6.9 cm LV Stroke Volume (4C MOD) 61 ml Atria Name Value Normal LA Dimensions LA Dimension (MM) 4.4 cm 3.0-4.0 LA Volume (4C A-L) 37 ml LA Volume (BP A-L) 40 ml RA Dimensions RA Systolic Major [place] Length (4C) 4.7 cm 2.1-2.7 RA Area (4C) 14.4 cm2 <=18.0 Report Signatures
--- OUTSIDE RECORDS SUMMARY | 2025-05-22 08:29 | XMS_ITS | Clinical Summary ---
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 SALES CONSULTANT Gender Identity Not on file Sexual Orientation Not on file Obstetrics History Last Filed Vital Signs Vital Sign Reading Time Taken Comments Blood Pressure 116/69 11/04/2019 2:00 PM INTERNET SALES CONSULTANT Pulse 75 11/04/2019 2:00 PM INTERNET SALES CONSULTANT Temperature 36.2 C (97.2 F) 09/15/2020 2:06 PM INTERNET SALES CONSULTANT Respiratory Rate 19 11/04/2019 2:00 PM INTERNET SALES CONSULTANT Oxygen Saturation 94% 11/04/2019 2:00 PM INTERNET SALES CONSULTANT Inhaled Oxygen Concentration - - Weight 93.7 kg (206 lb 9.6 oz) 11/04/2019 11:00 AM INTERNET SALES CONSULTANT Height 177.8 cm (5' 10) 11/04/2019 11:00 AM INTERNET SALES CONSULTANT Body Mass Index 29.64 11/04/2019 11:00 AM INTERNET SALES CONSULTANT Plan of Treatment Not on file Medical Devices Implanted Type Area Barrel Roller Operator Device Identifier Shelf Expiration Date Model / Serial / Lot [employer] [id number] Persona Cruciate Retaining Knee Left 10 Standard Component - S - [id number] Implanted:Qty: 1 on 11/04/2019 by Bhavin Nick MD at [facility] Other - see comments Left: Knee [employer] [id number] 05/04/2029 [id number] / / [id number] [employer] [id number] Persona 16mm Cruciate Retain Knee Left 8-11 Ef Insert Articular Latex Free - S - [id number] Implanted:Qty: 1 on 11/04/2019 by Bhavin Nick MD at [facility] Other - see comments Left: Knee [employer] [id number] 02/03/2024 [id number] / / [id number] [employer] [id number] Persona 2 Peg Knee Left E Baseplate Tibial Trabecular Metal - S - [id number] Implanted:Qty: 1 on 11/04/2019 by Bhavin Nick MD at [facility] Other - see comments Left: Knee [employer] [id number] 09/04/2029 [id number] / / [id number] Insurance [facility] CHO[facility] PLUS [facility] CHO[facility] PLUS [facility] CHO[facility] PLUS Advance Directives For more information, please contact: [phone] * Full Code (Latest Code Status on File) Date Activated Date Inactivated Comments 11/04/2019 10:50 AM 11/05/2019 12:47 AM Care Teams Dredge Captain Relationship Specialty Start Date End Date Bhavin Jackson MD [address] [place] [address] PCP - General Internal Medicine 08/28/19
--- OUTSIDE RECORDS SUMMARY | 2025-05-22 08:29 | XMS_ITS | Encounter Summary ---
Author Organization [facility] Healthcare Address [address] [place] [address] Care Team Providers Care Business Librarian Name Role Phone Bhavin Jackson MD Primary Care Provider [phone] Encounter Details Date Type Department Care Team (Late st Contact Info) Description 11/06/2019 Documentation [facility] Case Management [address] [place] [address] Lakesha Saez RN Social History Tobacco Use Types Packs/Day Years Used Date Smoking Tobacco: Never Smokeless Tobacco: Never Sex and Gender Information Value Date Recorded Sex Assigned at Not on file Legal 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
--- OUTSIDE RECORDS SUMMARY | 2025-05-22 08:29 | XMS_ITS | Referral Summary ---
Author Organization [facility] Address [address] [place] [address] Care Team Providers Care Straightening Press Operator Helper Name Role Phone Bhavin Jackson MD Primary Care Provider [phone] Allergies No known active allergies Medications lisinopril-hydro CHLOROthiazide (ZESTORETIC) 10-12.5 mg per tabletIndication s:hypertension Take 1 tablet by mouth dog breeder before breakfast Active celecoxib (CeleBREX) 200 mg [...] (09/30/2019): Added automatically from request for surgery [id number] Surgical follow-up care 02/23/2017 Neoplasm of skin [...] on file Legal Sex Male 6:34 AM PARACHUTE PANEL JOINER Gender Identity Not on file Sexual Orientation Not on file Last Filed Vital Signs Vital Sign Reading Time Taken Comments Blood Pressure 116/69 11/04/2019 2:00 PM PARACHUTE PANEL JOINER Pulse 75 11/04/2019 2:00 PM PARACHUTE PANEL JOINER Temperature 36.2 C (97.2 F) 09/15/2020 2:06 PM PARACHUTE PANEL JOINER Respiratory Rate 19 11/04/2019 2:00 PM PARACHUTE PANEL JOINER Oxygen Saturation 94% 11/04/2019 2:00 PM PARACHUTE PANEL JOINER Inhaled Oxygen Concentration - - Weight 93.7 kg (206 lb 9.6 oz) 11/04/2019 11:00 AM PARACHUTE PANEL JOINER Height 177.8 cm (5' 10) 11/04/2019 11:00 AM PARACHUTE PANEL JOINER Body Mass Index 29.64 11/04/2019 11:00 AM PARACHUTE PANEL JOINER Plan of Treatment Not on file Medical Devices Implanted Type Area Automobile Service Station Mechanic Device Identifier Shelf Expiration Date Model / Serial / Lot [employer] [id number] Persona Cruciate Retaining Knee Left 10 Standard Component - S - [id number] Implanted:Qty: 1 on 11/04/2019 by Bhavin Nick MD at [facility] Other - see comments Left: Knee [employer] [id number] 05/04/2029 [id number] / / [id number] [employer] [id number] Persona 16mm Cruciate Retain Knee Left 8-11 Ef Insert Articular Latex Free - S - [id number] Implanted:Qty: 1 on 11/04/2019 by Bhavin Nick MD at [facility] Other - see comments Left: Knee [employer] [id number] 02/03/2024 [id number] / / [id number] [employer] [id number] Persona 2 Peg Knee Left E Baseplate Tibial Trabecular Metal - S - [id number] Implanted:Qty: 1 on 11/04/2019 by Bhavin Nick MD at [facility] Other - see comments Left: Knee [employer] [id number] 09/04/2029 [id number] / / [id number] Insurance [facility]ICE PL[facility] H[facility]/PPO Address: [address] [place] [address] [facility] CHOICE PL[facility] H[facility]/PPO Address: [address] [address] [place] [address] [facility] CHO[facility] PL[facility] H[facility]/PPO Address: [address] [address] [place] [id number] Advance Directives For more information, please contact: [phone] * Full Code (Latest Code Status on File) Date Activated Date Inactivated Comments 11/04/2019 10:50 AM 11/05/2019 12:47 AM Care Teams Straightening Press Operator Helper Relationship Specialty Start Date End Date Bhavin Jackson MD [address] [facility] [address] [place] [address] PCP - General Internal Medicine 08/28/19
--- NOTE | 2025-05-22 09:00 | PC.NURSE ---
No IV meds/drips able to be given per nuclear medicine
--- NOTE | 2025-05-22 10:10 | P.CONPL_ITS ---
Assessment and Plan Assessment and plan (1) Pulmonary embolism: Code(s): I26.99 - Other pulmonary embolism without acute cor pulmonale Status: Acute Assessment and Plan: Patient with no prior history of DVT or PE, status post left knee replacement 2016. Presents with anterior upper chest dull pain with no other associated respiratory symptoms. On admission he had a Well's score of 0, leukocytosis of 13.3, normal LFTs, BNP 85, troponins negative x2 a D-dimer positive at 0.64. CT angiogram of the chest was limited by beam hardening and motion artifact demonstrated small nonocclusive subsegmental PE right upper lobe and right lower lobe with no right heart strain. There is a 3 mm broncholith with distal mucus impaction in the superior segment of the right lower lobe. There was a calcified granuloma in the left lower lobe. CT abdomen was consistent with acute cholecystitis. Patient was started on IV heparin, given ceftriaxone and Flagyl. Lower extremity Dopplers negative for DVT. Abdominal ultrasound with cholelithiasis with highly suggestive cholecystitis. I reviewed the CT angiogram of the chest with another radiologist who felt that this study was not definitive for PE and if PE was present this represented a very small clot burden. 05/22/2025: Currently the patient tells me he sweated once today but denies fever, chills, rigors. he denies shortness of breath at rest, dyspnea on exertion, cough, phlegm, hemoptysis or dull chest pain. When he takes a deep breath or cough he has right lower rib pain and right upper quadrant pain that appears pleuritic in nature. He denies any leg swelling. recent plane trips, recent car trips, recent chest or leg trauma. He is afebrile. room air saturation 94%. White blood cell count 18.8. Plan: Echocardiogram to assess for RV strain. I have a very low suspicion for PE and I have explained to the patient and the family that is difficult to completely exclude PE at this time and I recommend systemic anticoagulation for at least 3 months. We did discuss the benefits and risks (bleeding complications) from anticoagulation. Currently patient is on IV heparin pending additional workup and plan for his cholecystitis. Discussed with Dr. Umanzor, will follow with you. (2) Acute cholecystitis: Code(s): K81.0 - Acute cholecystitis Status: Acute Assessment and Plan: Patient with clinical evidence of cholecystitis, CT scan of the chest abdomen and pelvis consistent with cholecystitis, right upper quadrant ultrasound consistent with cholecystitis. HIDA scan is pending. Patient is on Flagyl and ceftriaxone per hospitalist and surgical teams. Plan: Further workup and management per hospitalist and surgical teams. (3) Broncholithiasis: Code(s): J98.09 - Other diseases of bronchus, not elsewhere classified Status: Acute Assessment and Plan: Patient has broncholith in the superior segment of the right lower lobe with small area of mucoid impaction and distal bronchiectasis. Plan: Patient does not have recurrent bronchitis or infectious pulmonary complaints. At this time no further follow up required. History of Present Illness History of Present Illness Consult date: 05/22/25 Chief complaint: pulmonary embolism, acute cholecystitis Narrative: This is a new pulmonary consult for pulmonary embolism and broncholith. 66-year-old with a history of hypertension, glaucoma, COVID 10/2020 and made a complete recovery, s/p left knee replacement for arthritis in 2017. Patient denies a history of childhood asthma, COPD, recurrent bronchial infections, and has no respiratory limitations in his activities of daily living. At baseline he can walk an unlimited distance. He does not have, it chronic cough, phlegm or hemoptysis. Patient is a never smoker, was exposed to secondhand smoke from his mother but none since. Patient worked at [employer] throughout his entire career. Denies sand blasting, welding, asbestos were, professional painting, steel third miller, construction work, coal mining or concrete work. Patient has no known history of blood clots and no history of blood clots in the family. patient was in his usual state of health and the evening of 05/18/2025 he took 2 mg of Ativan in anticipation of deep cavity and crown placement on 05/19/2025. On 05/19/2025 the patient woke up in his usual state of health and took 2 mg of Ativan and had his dental procedure performed without complications. He walked to the car after that and had no respiratory issues. Patient slept until 230 in the afternoon and then his woke him up and he walked to the couch but he remained very sleepy. Patient went to bed at 5:30 a.m. at that time had no respiratory symptoms. Patient slept until 730 in the morning. On 05/20/2024 patient woke up at 7:30 a.m. was walking, had no respiratory issues, felt a little groggy or loopy. He drove to his son house and work done carpentry projects until 3:00 p.m. and came home and felt exhausted. He ate dinner. The states that his groggy and loopy mental status were better. Patient had no respiratory issues and went to bed. 05/21/2025 patient woke up with completely normal mental status. He noticed dull bilateral anterior chest pain rated at a score of 2 to 3/10. He had no other respiratory issues went to his son's house to perform carpentry. His temporary crown fell off and he went to the dentist. He then drove home. his dull anterior chest pain had resolved. At approximately 5:00 p.m. He developed some right-sided Pleuritic pain located in the lower ribcage and right upper quadrant. He vomited once. 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 He cut the grass with no respiratory issues and then had another episode of vomiting. He presented to the emergency department about 6:00 p.m. As a right lower rib pain and right upper quadrant pain intensified.. In the emergency department he complained of chest pain that had resolved and now complained of right upper abdominal pain. His blood pressure is 126/83, heart rate 69, respirations 16 and his room air saturations were 96%. His Wells criteria score was 0. His white blood cell count was 13.3, his creatinine was 0.76, his BNP was 85, his troponins were negative x2, his alk-phos was 53, his AST was 5028, ALT was 16. His D-dimer was positive at 0.64, TSH was 0.971. CT angiogram chest abdomen pelvis was limited by beam hardening and motion artifact demonstrated small nonocclusive subsegmental PE right upper lobe and right lower lobe with no right heart strain. There is a 3 mm broncholith with distal mucus impaction in the superior segment of the right lower lobe. There was a calcified granuloma in the left lower lobe. CT abdomen was consistent with acute cholecystitis. Patient was started on IV heparin, given ceftriaxone and Flagyl. 05/22/2025: Currently the patient tells me he sweated once today but denies fever, chills, rigors. he denies shortness of breath at rest, dyspnea on exertion, cough, phlegm, hemoptysis or dull chest pain. When he takes a deep breath or cough he has right lower rib pain and right upper quadrant pain that appears pleuritic in nature. He denies any leg swelling. recent plane trips, recent car trips, recent chest or leg trauma. He is afebrile. room air saturation 94%. White blood cell count 18.8. Lower extremity Dopplers negative for DVT. Abdominal ultrasound with cholelithiasis with highly suggestive cholecystitis. I reviewed the CT angiogram of the chest with another radiologist who felt that this study was not definitive for PE and if they were present this represented day a very small clot burden. Data: 05/22/25: Limited ABDOMINAL ULTRASOUND (Doppler ultrasound interrogation techniques used as needed for this exam.) Ordering provider: Bhavin Sampson History: . RUQ pain . Comparison: None. FINDINGS: PANCREAS: Not visualized. PORTAL VEIN: Hepatopedal flow demonstrated. LIVER: Partially obscured by bowel gas. Normal size and echotexture. No focal hepatic lesions. Minimal Perihepatic fluid collections identified anteriorly. BILIARY DUCTS: No intra or extrahepatic biliary dilation. Common bile duct measures 4.7 mm in diameter which is normal for patient's age. GALLBLADDER: Stone is seen in the neck of the gallbladder measuring 2.1 cm. Sludge, gallbladder wall thickening and pericholecystic fluid are noted. Wall thickness is 5 mm. Negative sonographic Avalos's sign. FREE FLUID: None visualized within the upper abdomen. IMPRESSION: Cholelithiasis with highly suggestive cholecystitis. Clinical correlation advised. Otherwise, normal limited abdominal ultrasound. 05/22/25: BILATERAL LOWER EXTREMITY VENOUS ULTRASOUND Ordering provider: Bhavin Sampson MD History: . eval for DVT . Comparison: None. FINDINGS: RIGHT LOWER EXTREMITY VEINS: --COMMON FEMORAL: Patent and free of thrombus. Normal compressibility, phasic flow and augmentation. --PROXIMAL SUPERFICIAL FEMORAL: Patent and free of thrombus. Normal compressibility, phasic flow and augmentation. --DISTAL SUPERFICIAL FEMORAL: Patent and free of thrombus. Normal compressibility, phasic flow and augmentation. --POPLITEAL: Patent and free of thrombus. Normal compressibility, phasic flow and augmentation. --POSTERIOR TIBIAL: Patent and free of thrombus. Normal compressibility, phasic flow and augmentation. LEFT LOWER EXTREMITY VEINS: --COMMON FEMORAL: Patent and free of thrombus. Normal compressibility, phasic flow and augmentation. --PROXIMAL SUPERFICIAL FEMORAL: Patent and free of thrombus. Normal compressibility, phasic flow and augmentation. --DISTAL SUPERFICIAL FEMORAL: Patent and free of thrombus. Normal compressibility, phasic flow and augmentation. --POPLITEAL: Patent and free of thrombus. Normal compressibility, phasic flow and augmentation. --POSTERIOR TIBIAL: Patent and free of thrombus. Normal compressibility, phasic flow and augmentation. IMPRESSION: Negative bilateral lower extremity venous US. No deep vein thrombosis. 05/21/25; EXAMINATION: CTA chest PE abdomen pel INDICATION: chest pain, RUQ abdominal pain COMPARISON: None. FINDINGS: CHEST: Lung parenchyma and airways: Mild septal thickening. Dependent scar/atelectasis. Granulomatous calcifications. 3 mm calcification in a superior segment right lower lobe bronchus, with distal tubular opacification. Remaining airways are clear. Calcified granulomas. Pleura: Unremarkable. Thoracic inlet, axillae and chest wall: No thyroid or soft tissue mass. Thoracic aorta: The ascending thoracic aorta is dilated to 4.0 cm. Mediastinum: Mildly dilated central pulmonary arteries as can be seen with pulmonary hypertension. Heart and pericardium: Enlarged heart. No pericardial effusion. RV/LV ratio less than 1. Coronary artery calcifications: . Thoracic bones: No acute osseous finding. Pulmonary arteries: Study quality: Exam limited by beam hardening and motion artifact limiting evaluation of segmental and subsegmental pulmonary arteries. No central pulmonary emboli detected. Small nonocclusive subsegmental emboli are suspected in the right upper lobe (image [id number]/239) and the right lower lobe image 123/239). ABDOMEN/PELVIS: Liver: Enlarged. No focal lesions detected. Biliary/Gallbladder: The gallbladder is distended with surrounding inflammatory stranding mild gallbladder wall edema. No bile duct dilation. Pancreas: No mass or duct dilation. Spleen: Normal. Adrenals: Normal right adrenal. 2.0 cm indeterminate density left adrenal mass. Kidneys: No suspicious mass, obstructing stone, or hydronephrosis. Excreted contrast in the renal calyces could obscure small calcifications. Simple right midpole cyst. Subcentimeter left renal hypodensities, too small to characterize but most likely represent cysts. GI tract: Small hiatal hernia. No small or large bowel dilation. Appendix not confidently visualized. Diverticulosis without diverticulitis. Mesentery/Peritoneum: Enlarged biju hepatic and peripancreatic lymph nodes. Mild mesenteric edema with fat halos surrounding prominent mesenteric lymph nodes. Retroperitoneum: No mass. Pelvis: Normal urinary bladder. Mild prostatomegaly. Trace free pelvic fluid Soft Tissues: Small, fat-containing umbilical and bilateral inguinal hernias. Abdominopelvic bones: No acute osseous finding. IMPRESSION: Limited evaluation of segmental and subsegmental pulmonary arteries. No central embolus detected. Small subsegmental nonocclusive emboli are suspected in the right upper and lower lobes. This would represent a small clot burden. No CT evidence of right heart strain. 3 mm broncholith with distal mucoid impaction in the superior segment of the right lower lobe. Mild interstitial edema. Mild aortic ectasia. Cardiomegaly. Hepatomegaly. Acute cholecystitis. Fluid tracking along the common bile duct with mild duct hyperemia, presumably reactive, unless there are additional signs or symptoms of cholangitis. Biju hepatic and peripancreatic lymphadenopathy. 2.0 cm indeterminate density left adrenal mass. Recommend nonemergent but timely outpatient adrenal CT. Mesenteric panniculitis. Review of Systems 2 Constitutional: Constitutional: Reports no additional constitutional complaints Eyes: Eyes: Reports no additional eye complaints ENT: Reports system reviewed and no additional complaints, except as documented Cardiovascular: Cardiovascular: Reports no additional cardiovascular complaints Respiratory: Respiratory: Reports no additional respiratory complaints Gastrointestinal: Gastrointestinal: Reports no additional gastrointestinal complaints Musculoskeletal: Musculoskeletal: Reports no additional musculoskeletal complaints Neurologic: Reports system reviewed and no additional complaints, except as documented Psychiatric: Psychiatric: Reports no additional psychiatric complaints Endocrine: Endocrine: Reports no additional endocrine complaints Hematologic/Lymphatic: Hematologic/Lymphatic: Reports no additional hematologic/lymphatic complaints Allergic/Immunologic: Allergic/Immunologic: Reports no additional allergic/immunologic complaints [facility] Family History Family History Other Diabetes mellitus Family history of primary malignant neoplasm of liver Hypertension Social History Social History Smoking status: Never smoker Alcohol intake: never Substance use: never Do You Feel Safe in your Home?: Yes Lack of Transportation: No Lack of Food: Never True Current Housing: I Have Housing Concerned About Future Housing: No Difficulty Paying Gas/Electric Bills: No Difficulty Paying for Meds: No Currently Unemployed: No Education: High School Diploma/GED Difficulty w/ Childcare or Family Care: No Spiritual care concerns: No Meds Home Medications and Allergies Home Medications ?Medication ?Instructions ?Recorded ?Confirmed ?Type brimonidine 0.2 %-timolol 0.5 % 1 drp EACH EYE Q12H 05/22/25 05/22/25 History eye drops latanoprost 0.005 % eye drops 1 drp EACH EYE QPM 05/22/25 05/22/25 History losartan 100 0.5 tablet PO DAILY 05/22/25 05/22/25 History mg-hydrochlorothiazide 25 mg tablet Allergies Allergy/AdvReac Type Severity Reaction Status Date / Time No Known Allergies Allergy Unverified 01/13/18 05:01 Vital Signs Vital Signs - 24 hr 05/21/25 18:24 05/21/25 23:02 05/21/25 23:16 Temperature 36.4 C Pulse Rate 69 77 87 Respiratory Rate 16 21 H Blood Pressure 126/83 139/78 Pulse Oximetry 100 96 Oxygen Delivery 05/21/25 23:16 05/21/25 23:16 05/22/25 00:02 Temperature Pulse Rate 90 85 Respiratory Rate 20 18 Blood Pressure 142/79 H 144/81 H Pulse Oximetry 96 96 95 Oxygen Delivery Room Air Room Air 05/22/25 00:17 05/22/25 01:22 05/22/25 02:32 Temperature Pulse Rate 81 80 73 Respiratory Rate 22 H 19 26 H Blood Pressure 152/82 H 139/84 141/79 H Pulse Oximetry 96 96 95 Oxygen Delivery 05/22/25 03:37 05/22/25 04:10 Temperature 37.0 C Pulse Rate 82 Respiratory Rate 18 Blood Pressure 149/83 H Pulse Oximetry 96 Oxygen Delivery Room Air Exam 2 Const: General: cooperative, healthy appearing and comfortable O rientation/consciousness: oriented to person, oriented to place and oriented to time HENMT: Head: normal to inspection Ears: hearing grossly normal bilaterally Eyes: General: appearance normal, both eyes and all related structures Neck: Neck: normal visual inspection Chest: Chest palpation & inspection: normal inspection of the chest Other: No tenderness to palpation in the right lower ribcage. Resp: Effort & Inspection: normal respiratory effort and able to speak in complete sentences Auscultation: no crackles, no rales, no rhonchi, no wheezes and lung sounds not diminished Cardio: Jugular venous distension: no JVD GI: Inspection: normal to inspection GI Palp: No abdominal tenderness O ther: Right upper quadrant tenderness. Skin: General skin exam: normal color Neuro: General: oriented to person, oriented to place and oriented to time Extrem: General: normal to inspection and no edema Psych: Appearance: grossly normal Results Laboratory Findings 05/22/25 07:13 05/21/25 18:44 ABG, PT/INR, D-dimer: PT/INR, D-dimer PT 16.0 Seconds (11.1-14.7) H 05/22/25 07:13 INR 1.3 05/22/25 07:13 D-Dimer 0.64 ug/mL (<0.48) H 05/21/25 22:20 Abnormal lab findings: Abnormal Labs 05/21/25 05/21/25 05/21/25 18:43 18:44 22:20 WBC 13.3 H RBC 3.92 L Hgb 12.5 L Hct 37.9 L RDW Immature Gran % (Auto) Neut % (Auto) Lymph % (Auto) 11.2 L [place] % (Auto) 13.4 H [place] # (Auto) 1.8 H Abs Immat Gran (auto) 0.06 H Absolute Neuts (auto) 9.6 H PT APTT D-Dimer 0.64 H Sodium 136 L Anion Gap 13 H Glucose 114 H C-Reactive Protein 05/22/25 05/22/25 01:51 07:13 WBC 18.8 H RBC 3.89 L Hgb 12.6 L Hct 37.5 L RDW 14.6 H Immature Gran % (Auto) 0.6 H Neut % (Auto) 80.3 H Lymph % (Auto) 5.5 L [place] % (Auto) 13.4 H [place] # (Auto) 2.5 H Abs Immat Gran (auto) 0.12 H Absolute Neuts (auto) 15.1 H PT 16.0 H APTT 169.9 H* D-Dimer Sodium Anion Gap Glucose C-Reactive Protein 5.2 H Diagnostic Findings Additional studies: ITS Impressions Chest X-Ray 05/21/25 18:27 IMPRESSION: No acute cardiopulmonary process. Chest/Abdomen/Pelvis CTA 05/21/25 23:44 IMPRESSION: Limited evaluation of segmental and subsegmental pulmonary arteries. No central embolus detected. Small subsegmental nonocclusive emboli are suspected in the right upper and lower lobes. This would represent a small clot burden. No CT evidence of right heart strain. 3 mm broncholith with distal mucoid impaction in the superior segment of the right lower lobe. Mild interstitial edema. Mild aortic ectasia. Cardiomegaly. Hepatomegaly. Acute cholecystitis. Fluid tracking along the common bile duct with mild duct hyperemia, presumably reactive, unless there are additional signs or symptoms of cholangitis. Biju hepatic and peripancreatic lymphadenopathy. 2.0 cm indeterminate density left adrenal mass. Recommend nonemergent but timely outpatient adrenal CT. Mesenteric panniculitis. Venous Doppler Study 05/22/25 09:55 IMPRESSION: Negative bilateral lower extremity venous US. No deep vein thrombosis. Abdomen Ultrasound 05/22/25 09:59
--- NOTE | 2025-05-22 10:46 | PM.CNGS ---
Assessment and Plan Assessment and plan (1) Acute cholecystitis: Code(s): K81.0 - Acute cholecystitis Status: Acute Assessment and Plan: Patient presented to the ED last night with chest pain and vomiting. Cardiac workup benign. No cardiac history. While in the ED, patient developed pain in the right upper quadrant. CT abdomen and pelvis demonstrated findings significant for acute cholecystitis. Physical exam revealed right upper quadrant tenderness to palpation. RUQ ultrasound, as well as HIDA scan ordered by Dr. Sampson this morning. HIDA scan still pending. Will follow up with results. Abdominal ultrasound demonstrated cholelithiasis with highly suggestive cholecystitis. WBC count 18.8. Normal LFTs. Patient is still experiencing quite a bit of pain, and will likely require laparoscopic cholecystectomy. Patient should remain NPO. Continue IV Zosyn. Continue morphine for pain. Will need to hold heparin prior to surgery. (2) Pulmonary embolism: Code(s): I26.99 - Other pulmonary embolism without acute cor pulmonale Status: Acute Assessment and Plan: CTA obtained yesterday demonstrated small nonocclusive subsegmental emboli in the right upper lobe and right lower lobe. Patient was started on heparin. Lower extremity Dopplers negative for DVT. Pulmonology consulted. Per student accounts manager note, CT angiogram was reviewed with radiologist and they agreed that this study was not definitive for PE and if they were present this represented a very small clot burden. Continue with care per student accounts manager recommendations. Plan Discussed patient's case and plan of care with Dr. Sampson. History of Present Illness Consult details Consult date: 05/22/25 Reason for consult: other (acute cholecystitis) Requesting physician: Carole Willard APRN Narrative: Patient is a 64-year-old otherwise healthy male who we have been asked to see in surgical consultation for acute cholecystitis. Patient states that he first noted chest pain yesterday morning. He was able to continue on with his day, but the pain progressed in severity and he developed some nausea and had a few episodes of emesis. He did not notice any right upper quadrant pain until presenting to the ED around 6:00 p.m. last night. Since this time the pain has been constant in directly inferior to his right rib cage. He states that it is exacerbated by taking deep breaths. Chest pain has since resolved, for the most part. No shortness of breath or trouble breathing. Last bowel movement was yesterday, as well as last episode of emesis. Afebrile. Abdominal surgical history includes a repair of a ventral hernia with mesh performed by Dr. Sampson in 2017. White blood cell count in the ED was 13.3 yesterday, now at 18.8 today. Normal LFTs. EKG obtained in the ED did not show any signs of ACS. CT of the abdomen demonstrated a distended gallbladder with surrounding inflammatory stranding mild gallbladder wall edema. No common bile duct dilation. Small nonocclusive subsegmental emboli were also found in the right upper lobe and right lower lobe. Patient was started on heparin drip. 3 mm broncholith with distal mucoid impaction in the superior segment of the right lower lobe. Pulmonology on board. [facility] Family History Family History Other Diabetes mellitus Family history of primary malignant neoplasm of liver Hypertension Social History Social History Smoking status: Never smoker Alcohol intake: never Substance use: never Do You Feel Safe in your Home?: Yes Lack of Transportation: No Lack of Food: Never True Current Housing: I Have Housing Concerned About Future Housing: No Difficulty Paying Gas/Electric Bills: No Difficulty Paying for Meds: No Currently Unemployed: No Education: High School Diploma/GED Difficulty w/ Childcare or Family Care: No Spiritual care concerns: No Meds Home Medications and Allergies Home Medications ?Medication ?Instructions ?Recorded ?Confirmed ?Type brimonidine 0.2 %-timolol 0.5 % 1 drp EACH EYE Q12H 05/22/25 05/22/25 History eye drops latanoprost 0.005 % eye drops 1 drp EACH EYE QPM 05/22/25 05/22/25 History losartan 100 0.5 tablet PO DAILY 05/22/25 05/22/25 History mg-hydrochlorothiazide 25 mg tablet Allergies Allergy/AdvReac Type Severity Reaction Status Date / Time No Known Allergies Allergy Unverified 01/13/18 05:01 Vital Signs Vital Signs - 24 hr 05/21/25 18:24 05/21/25 23:02 05/21/25 23:16 Temperature 97.6 F Pulse Rate 69 77 87 Respiratory Rate 16 21 H Blood Pressure 126/83 139/78 Pulse Oximetry 100 96 Oxygen Delivery 05/21/25 23:16 05/21/25 23:16 05/22/25 00:02 Temperature Pulse Rate 90 85 Respiratory Rate 20 18 Blood Pressure 142/79 H 144/81 H Pulse Oximetry 96 96 95 Oxygen Delivery Room Air Room Air 05/22/25 00:17 05/22/25 01:22 05/22/25 02:32 Temperature Pulse Rate 81 80 73 Respiratory Rate 22 H 19 26 H Blood Pressure 152/82 H 139/84 141/79 H Pulse Oximetry 96 96 95 Oxygen Delivery 05/22/25 03:37 05/22/25 04:10 Temperature 98.6 F Pulse Rate 82 Respiratory Rate 18 Blood Pressure 149/83 H Pulse Oximetry 96 Oxygen Delivery Room Air Exam Const: General: comfortable and no acute distress Eyes: General: appearance normal, both eyes and all related structures Resp: Effort & Inspection: normal respiratory effort Cardio: Rate: regular rate GI: Inspection: non-distended GI Palp: Yes Tenderness to palpation present (GI) Other: Tenderness to palpation of right upper quadrant. Skin: General skin exam: normal color and no rashes or lesions noted Neuro: Speech: normal speech Sensory Exam: normal sensation Extrem: General: normal to inspection Psych: Mental Status: mental status grossly normal Results Labs 05/22/25 07:13 05/21/25 18:44 Labs: Abnormal lab results 05/21/25 05/21/25 05/21/25 Range/Units 18:43 18:44 22:20 WBC 13.3 H (4.5-10.0) K/mm3 RBC 3.92 L (4.6-6.20) M/mm3 Hgb 12.5 L (14.0-18.0) g/dL Hct 37.9 L (42.0-52.0) % RDW (11.5-14.5) % Immature Gran % (Auto) (0-0.5) % Neut % (Auto) (45.5-73.1) % Lymph % (Auto) 11.2 L (18.3-44.2) % [place] % (Auto) 13.4 H (2.6-8.5) % [place] # (Auto) 1.8 H (0.1-0.6) K/mm3 Abs Immat Gran (auto) 0.06 H (0.00-0.031) K/mm3 Absolute Neuts (auto) 9.6 H (1.3-6.7) K/mm3 PT (11.1-14.7) Seconds APTT (22.3-36.8) Seconds D-Dimer 0.64 H (<0.48) ug/mL Sodium 136 L (137-145) mmol/L Anion Gap 13 H (4-12) mmol/L Glucose 114 H (65-110) mg/dL C-Reactive Protein (<1.0) mg/dL 05/22/25 05/22/25 Range/Units 01:51 07:13 WBC 18.8 H (4.5-10.0) K/mm3 RBC 3.89 L (4.6-6.20) M/mm3 Hgb 12.6 L (14.0-18.0) g/dL Hct 37.5 L (42.0-52.0) % RDW 14.6 H (11.5-14.5) % Immature Gran % (Auto) 0.6 H (0-0.5) % Neut % (Auto) 80.3 H (45.5-73.1) % Lymph % (Auto) 5.5 L (18.3-44.2) % [place] % (Auto) 13.4 H (2.6-8.5) % [place] # (Auto) 2.5 H (0.1-0.6) K/mm3 Abs Immat Gran (auto) 0.12 H (0.00-0.031) K/mm3 Absolute Neuts (auto) 15.1 H (1.3-6.7) K/mm3 PT 16.0 H (11.1-14.7) Seconds APTT 169.9 H* (22.3-36.8) Seconds D-Dimer (<0.48) ug/mL Sodium (137-145) mmol/L Anion Gap (4-12) mmol/L Glucose (65-110) mg/dL C-Reactive Protein 5.2 H (<1.0) mg/dL Diabetes panel 05/21/25 Range/Units 18:44 Sodium 136 L (137-145) mmol/L Potassium 3.5 (3.4-5.0) mmol/L Chloride 101 (98-107) mmol/L Carbon Dioxide 22 (22-30) mmol/L BUN 16 (9-20) mg/dL Creatinine 0.76 (0.7-1.3) mg/dL Glucose 114 H (65-110) mg/dL Calcium 9.1 (8.4-10.2) mg/dL AST 28 (17-59) U/L ALT 16 (6-50) U/L Alkaline Phosphatase 53 (38-126) U/L Total Protein 7.7 (6.3-8.2) g/dL Albumin 4.3 (3.5-5.1) g/dL Calcium panel 05/21/25 Range/Units 18:44 Calcium 9.1 (8.4-10.2) mg/dL Albumin 4.3 (3.5-5.1) g/dL Pituitary panel 05/21/25 Range/Units 18:44 Sodium 136 L (137-145) mmol/L Potassium 3.5 (3.4-5.0) mmol/L Chloride 101 (98-107) mmol/L Carbon Dioxide 22 (22-30) mmol/L BUN 16 (9-20) mg/dL Creatinine 0.76 (0.7-1.3) mg/dL Glucose 114 H (65-110) mg/dL Calcium 9.1 (8.4-10.2) mg/dL Adrenal panel 05/21/25 Range/Units 18:44 Sodium 136 L (137-145) mmol/L Potassium 3.5 (3.4-5.0) mmol/L Chloride 101 (98-107) mmol/L Carbon Dioxide 22 (22-30) mmol/L BUN 16 (9-20) mg/dL Creatinine 0.76 (0.7-1.3) mg/dL Glucose 114 H (65-110) mg/dL Calcium 9.1 (8.4-10.2) mg/dL Total Bilirubin 0.6 (0.2-1.3) mg/dL AST 28 (17-59) U/L ALT 16 (6-50) U/L Alkaline Phosphatase 53 (38-126) U/L Total Protein 7.7 (6.3-8.2) g/dL Albumin 4.3 (3.5-5.1) g/dL All other labs normal.
--- NOTE | 2025-05-22 11:00 | PC.NURSE ---
Echo being taken at bedside
--- NOTE | 2025-05-22 11:52 | PC.NURSE ---
Patient off of unit to nuclear medicine
--- NOTE | 2025-05-22 14:37 | PC.NURSE ---
RN spoke with Dr Sampson via telephone. Heparin gtt discontinued for surgery.
--- NOTE | 2025-05-22 14:40 | P.HP_ITS ---
H&P: HPI History of Present Illness Date/Time: 05/22/25 14:40 Chief Complaint: chest and abd pain Narrative: Patient is 64 y male presented to the Er with chest pain yesterday, about one hour later moved to the R upper abd. patient notes the pain was doll getting worse with taking deep breath. denies any fever, chills, SOB, N/V. In the Er vital signs were stable, no fever, no tachycardia. had some tachypnea. Lab tests showed WBC 13.3-->18.8, troponin was neg. D Dimer was mildly elevated. CTA concerning for subsegmental PE. lower ext neg for DVT. CT abd concerning for acute cholecystitis. Surgery and pulmonary team were consulted and patient was admitted for further management. US showed Cholelithiasis with highly suggestive cholecystitis HIDA scan showed Cystic duct obstruction. Review of Systems Review of Systems: All systems reviewed & are unremarkable except as noted in HPI and below Constitutional: Constitutional: Reports no additional constitutional complaints Eyes: Eyes: Reports no additional eye complaints ENT: Reports system reviewed and no additional complaints, except as documented Cardiovascular: Cardiovascular: Reports no additional cardiovascular complaints Respiratory: Respiratory: Reports no additional respiratory complaints Gastrointestinal: Gastrointestinal: Reports no additional gastrointestinal complaints Musculoskeletal: Musculoskeletal: Reports no additional musculoskeletal complaints Neurologic: Reports system reviewed and no additional complaints, except as documented Psychiatric: Psychiatric: Reports no additional psychiatric complaints Endocrine: Endocrine: Reports no additional endocrine complaints Hematologic/Lymphatic: Hematologic/Lymphatic: Reports no additional hematologic/lymphatic complaints Allergic/Immunologic: Allergic/Immunologic: Reports no additional allergic/immunologic complaints [facility] Family History Family History Other Diabetes mellitus Family history of primary malignant neoplasm of liver Hypertension Social History Social History Smoking status: Never smoker Alcohol intake: never Substance use: never Do You Feel Safe in your Home?: Yes Lack of Transportation: No Lack of Food: Never True Current Housing: I Have Housing Concerned About Future Housing: No Difficulty Paying Gas/Electric Bills: No Difficulty Paying for Meds: No Currently Unemployed: No Education: High School Diploma/GED Difficulty w/ Childcare or Family Care: No Spiritual care concerns: No Meds Home Medications and Allergies Home Medications ?Medication ?Instructions ?Recorded ?Confirmed ?Type brimonidine 0.2 %-timolol 0.5 % 1 drp EACH EYE Q12H 05/22/25 05/22/25 History eye drops latanoprost 0.005 % eye drops 1 drp EACH EYE QPM 05/22/25 05/22/25 History losartan 100 0.5 tablet PO DAILY 05/22/25 05/22/25 History mg-hydrochlorothiazide 25 mg tablet Allergies Allergy/AdvReac Type Severity Reaction Status Date / Time No Known Allergies Allergy Unverified 01/13/18 05:01 Vital Signs Vital Signs - 24 hr 05/21/25 18:24 05/21/25 23:02 05/21/25 23:16 Temperature 97.6 F Pulse Rate 69 77 87 Respiratory Rate 16 21 H Blood Pressure 126/83 139/78 Pulse Oximetry 100 96 Oxygen Delivery 05/21/25 23:16 05/21/25 23:16 05/22/25 00:02 Temperature Pulse Rate 90 85 Respiratory Rate 20 18 Blood Pressure 142/79 H 144/81 H Pulse Oximetry 96 96 95 Oxygen Delivery Room Air Room Air 05/22/25 00:17 05/22/25 01:22 05/22/25 02:32 Temperature Pulse Rate 81 80 73 Respiratory Rate 22 H 19 26 H Blood Pressure 152/82 H 139/84 141/79 H Pulse Oximetry 96 96 95 Oxygen Delivery 05/22/25 03:37 05/22/25 04:10 05/22/25 08:00 Temperature 98.6 F Pulse Rate 82 Respiratory Rate 18 Blood Pressure 149/83 H Pulse Oximetry 96 Oxygen Delivery Room Air Room Air 05/22/25 12:22 05/22/25 14:00 Temperature 97.6 F Pulse Rate 68 72 Respiratory Rate 18 Blood Pressure 142/74 H Pulse Oximetry 98 Oxygen Delivery Exam Narrative: GENERAL: Well appearing, well-nourished, non-toxic, in no acute distress. HEAD: Normocephalic, atraumatic. NECK: Supple. No adenopathy, no masses. RESPIRATORY: Airway patent, respirations nonlabored. Clear to auscultation b ilaterally, no rales, rhonchi, wheezing. CARDIOVASCULAR: Regular rate and rhythm without murmurs, rubs, or gallops. Peripheral pulses 2+ and equal bilaterally. ABDOMINAL: Soft, + tender RUQ, nondistended, no hepatosplenomegaly. Normoactive BS, + Avalos's test MUSCULOSKELETAL: Moves all extremities. Strength/ROM intact without gross deformities. SKIN: Warm, dry, normal color. No rashes. NEURO: A&O X3. Speech clear. Cranial nerves II-XII intact. No ataxic movements. PSYCHIATRIC: Appropriate mood and affect. Normal interaction. Const: General: cooperative, healthy appearing, comfortable and no acute distress Orientation/consciousness: oriented to person, oriented to place and oriented to time HENMT: Head: normal to inspection Ears: hearing grossly normal bilaterally Eyes: General: appearance normal, both eyes and all related structures Neck: Neck: normal visual inspection Chest: Chest palpation & inspection: normal inspection of the chest Other: No tenderness to palpation in the right lower ribcage. Resp: Effort & Inspection: normal respiratory effort and able to speak in complete sentences Auscultation: no crackles, no rales, no rhonchi, no wheezes and lung sounds not diminished Cardio: Jugular venous distension: no JVD Rate: regular rate GI: Inspection: normal to inspection and non-distended Other: Right upper quadrant tenderness. Skin: General skin exam: normal color and no rashes or lesions noted Neuro: General: oriented to person, oriented to place and oriented to time Speech: normal speech Sensory Exam: normal sensation Extrem: General: normal to inspection and no edema Psych: Appearance: grossly normal Mental Status: mental status grossly normal H&P: Results Labs Labs: Short CBC 05/21/25 05/22/25 Range/Units 18:43 07:13 WBC 13.3 H 18.8 H (4.5-10.0) K/mm3 Hgb 12.5 L 12.6 L (14.0-18.0) g/dL Hct 37.9 L 37.5 L (42.0-52.0) % Plt Count 338 288 (150-375) k/mm3 BMP 05/21/25 18:44 Sodium 136 L Potassium 3.5 Chloride 101 Carbon Dioxide 22 BUN 16 Creatinine 0.76 Glucose 114 H Calcium 9.1 Cardiac Enzymes 05/21/25 05/21/25 05/22/25 Range/Units 18:44 22:20 01:51 Troponin I < 0.012 < 0.012 < 0.012 (0.000-0.034) ng/mL Liver Function 05/21/25 Range/Units 18:44 Total Bilirubin 0.6 (0.2-1.3) mg/dL AST 28 (17-59) U/L ALT 16 (6-50) U/L Alkaline Phosphatase 53 (38-126) U/L Albumin 4.3 (3.5-5.1) g/dL Assessment and Plan Assessment and plan (1) Broncholithiasis: Code(s): J98.09 - Other diseases of bronchus, not elsewhere classified Status: Acute (2) Acute cholecystitis: Code(s): K81.0 - Acute cholecystitis Status: Acute (3) Pulmonary embolism: Code(s): I26.99 - Other pulmonary embolism without acute cor pulmonale Status: Acute (4) Sepsis: Code(s): A41.9 - Sepsis, unspecified organism Status: Acute Plan Acute PE: CT concerning for subsegmental PE. D Dimer elevated lower ext neg for DVT. Had tachypnea butnot tachycardia started on heparin drip will get ECHO pulmonary team on board Acute cholecystitis CT abd concerning for acute cholecystitis. US showed Cholelithiasis with highly suggestive cholecystitis HIDA scan showed Cystic duct obstruction. NPO Plan for possible surgey today Chest pain resolved troponin was neg. EKG neg for acute changes will get ECHO Continue to monitor possible sepsis in setting of cholecystitis tachypnea and leucocytosis continue Zosyn follow culture results
[2025-05-22] MEDS: PIPERACILLIN/TAZOBACTAM SOD 3.375 GM in SODIUM CHLORIDE 0.9% IV 50 ML 100 ML IVPB (15:11)
[2025-05-22] MEDS: LACTATED RINGERS 1,000 ML 30 ML IV CONT ×2 (16:15→19:23)
--- NOTE | 2025-05-22 16:15 | P.PNAN_ITS ---
Anes - Initial Pre Proc Eval Procedure: Operation Date: 05/22/25 17:00 Proposed Procedures p Laparoscopic Cholecystectomy - Bhavin Sampson MD Date/Time: 05/22/25 16:15 Surgeon: Adrián Pre Op Diagnosis: pulmonary embolism, acute cholecystitis Patient Data Age: 64 Gender: M Height: 1.78 m Weight: 81.7 kg Last Vital Signs Temp 36.4 C 05/22/25 14:00 Pulse 72 05/22/25 14:00 Resp 18 05/22/25 14:00 BP 142/74 H 05/22/25 14:00 Pulse Ox 98 05/22/25 14:00 O2 Del Method Room Air 05/22/25 08:00 Allergies Allergy/AdvReac Type Severity Reaction Status Date / Time No Known Allergies Allergy Unverified 01/13/18 05:01 Home Medications ?Medication ?Instructions ?Recorded ?Confirmed ?Type brimonidine 0.2 %-timolol 0.5 % 1 drp EACH EYE Q12H 05/22/25 05/22/25 History eye drops latanoprost 0.005 % eye drops 1 drp EACH EYE QPM 05/22/25 05/22/25 History losartan 100 0.5 tablet PO DAILY 05/22/25 05/22/25 History mg-hydrochlorothiazide 25 mg tablet Laboratory Tests 05/21/25 05/21/25 05/21/25 18:43 18:44 22:20 WBC 13.3 H K/mm3 (4.5-10.0) RBC 3.92 L M/mm3 (4.6-6.20) Hgb 12.5 L g/dL (14.0-18.0) Hct 37.9 L % (42.0-52.0) MCV 96.7 fl (80-100) MCH 31.9 pg (26-34) MCHC 33.0 g/dl (32-36) RDW 14.5 % (11.5-14.5) Plt Count 338 k/mm3 (150-375) MPV 9.7 fl (7.4-10.4) Immature Gran % (Auto) 0.5 % (0-0.5) Neut % (Auto) 72.3 % (45.5-73.1) Lymph % (Auto) 11.2 L % (18.3-44.2) [place] % (Auto) 13.4 H % (2.6-8.5) Eos % (Auto) 2.0 % (0-4.4) Baso % (Auto) 0.6 % (0.2-1.2) Lymph # (Auto) 1.49 K/mm3 (0.9-3.2) [place] # (Auto) 1.8 H K/mm3 (0.1-0.6) Eos # (Auto) 0.3 K/mm3 (0-0.3) Baso # (Auto) 0.1 K/mm3 (0.0-0.1) Abs Immat Gran (auto) 0.06 H K/mm3 (0.00-0.031) Absolute Neuts (auto) 9.6 H K/mm3 (1.3-6.7) Absolute Nucleated RBC 0.000 K/mm3 (0.0-0.012) Nucleated RBC % 0.0 % (0.0-0.2) PT 14.1 Seconds 14.1 Seconds (11.1-14.7) (11.1-14.7) INR 1.1 1.1 APTT 34.4 Seconds 32.6 Seconds (22.3-36.8) (22.3-36.8) D-Dimer 0.64 H ug/mL (<0.48) Sodium 136 L mmol/L (137-145) Potassium 3.5 mmol/L (3.4-5.0) Chloride 101 mmol/L (98-107) Carbon Dioxide 22 mmol/L (22-30) Anion Gap 13 H mmol/L (4-12) BUN 16 mg/dL (9-20) Creatinine 0.76 mg/dL (0.7-1.3) Estim Creat Clear Calc 88 ml/min Estimated GFR > 60 (59 - ) Glucose 114 H mg/dL (65-110) Lactic Acid 0.8 mmol/L (0.7-2.0) Calcium 9.1 mg/dL (8.4-10.2) Total Bilirubin 0.6 mg/dL (0.2-1.3) AST 28 U/L (17-59) ALT 16 U/L (6-50) Alkaline Phosphatase 53 U/L (38-126) Troponin I < 0.012 ng/mL < 0.012 ng/mL (0.000-0.034) (0.000-0.034) C-Reactive Protein NT-Pro-B Natriuret Pep 85 pg/mL (19.9-100) Total Protein 7.7 g/dL (6.3-8.2) Albumin 4.3 g/dL (3.5-5.1) Lipase 79 U/L (23-300) TSH (Reflex) 0.971 uIU/mL (0.465-4.68) 05/22/25 05/22/25 05/22/25 01:51 01:52 07:13 WBC 18.8 H K/mm3 (4.5-10.0) RBC 3.89 L M/mm3 (4.6-6.20) Hgb 12.6 L g/dL (14.0-18.0) Hct 37.5 L % (42.0-52.0) MCV 96.4 fl (80-100) MCH 32.4 pg (26-34) MCHC 33.6 g/dl (32-36) RDW 14.6 H % (11.5-14.5) Plt Count 288 k/mm3 (150-375) MPV 9.7 fl (7.4-10.4) Immature Gran % (Auto) 0.6 H % (0-0.5) Neut % (Auto) 80.3 H % (45.5-73.1) Lymph % (Auto) 5.5 L % (18.3-44.2) Price % (Auto) 13.4 H % (2.6-8.5) Eos % (Auto) 0.0 % (0-4.4) Baso % (Auto) 0.2 % (0.2-1.2) Lymph # (Auto) 1.04 K/mm3 (0.9-3.2) Price # (Auto) 2.5 H K/mm3 (0.1-0.6) Eos # (Auto) 0.0 K/mm3 (0-0.3) Baso # (Auto) 0.0 K/mm3 (0.0-0.1) Abs Immat Gran (auto) 0.12 H K/mm3 (0.00-0.031) Absolute Neuts (auto) 15.1 H K/mm3 (1.3-6.7) Absolute Nucleated RBC 0.000 K/mm3 (0.0-0.012) Nucleated RBC % 0.0 % (0.0-0.2) PT 16.0 H Seconds (11.1-14.7) INR 1.3 APTT 169.9 H* Seconds (22.3-36.8) D-Dimer Sodium Potassium Chloride Carbon Dioxide Anion Gap BUN Creatinine Estim Creat Clear Calc Estimated GFR Glucose Lactic Acid 1.0 mmol/L (0.7-2.0) Calcium Total Bilirubin AST ALT Alkaline Phosphatase Troponin I < 0.012 ng/mL (0.000-0.034) C-Reactive Protein 5.2 H mg/dL Cancelled (<1.0) NT-Pro-B Natriuret Pep Total Protein Albumin Lipase TSH (Reflex) Patient hx anesthesia problems: none Family hx anesthesia problems: none Results Review: All pre-operative results and documents have been reviewed as part of the pre- operative evaluation. [facility] Past Medical History Medical History (Updated 05/22/25 @ 16:15 by Apolinar Alberto DO) Glaucoma Pulmonary embolism possible Hypertension Family History Family History Other Diabetes mellitus Family history of primary malignant neoplasm of liver Hypertension Social History Social History Smoking status: Never smoker Alcohol intake: never Substance use: never Do You Feel Safe in your Home?: Yes Lack of Transportation: No Lack of Food: Never True Current Housing: I Have Housing Concerned About Future Housing: No Difficulty Paying Gas/Electric Bills: No Difficulty Paying for Meds: No Currently Unemployed: No Education: High School Diploma/GED Difficulty w/ Childcare or Family Care: No Spiritual care concerns: No Anes - Eval Final PreProcedure Day of Procedure 05/22/25 16:15 Patient weight: overweight Heart: regular rate and rhythm Lungs: clear to auscultation Airway: Mallampati scale class II Neurological: alert and oriented Last oral intake: >/= 8 hours ASA classification: III Emergent: no Anesthetic plan: proceed Anesthesia type and monitoring: general ETT and standard monitoring Results Review: All pre-operative results and documents have been reviewed as part of the pre- operative evaluation. Informed Consent: The patient's anesthetic plan and its attendant risks and benefits were discussed with the patient/family/POA. Questions were solicited and answers provided to the satisfaction of the patient/family/POA.
--- NOTE | 2025-05-22 16:16 | PC.NURSE ---
Patient off of unit to surgery
--- NOTE | 2025-05-22 16:48 | WPDHPUPDATE1 ---
History and Physical Update Update Date/Time: 05/22/25 16:48 History and Physical has been reviewed, including an updated exam of the patient. There are NO changes in the patient's condition. Risks, benefits, and alternatives have been discussed and questions answered. Patient agrees to proceed with procedure.
[2025-05-22] MEDS: BUPIVACAINE/EPINEPHRINE 0.5% 50 ML VIAL 30 ML INFILTRATE (17:23)
--- NOTE | 2025-05-22 17:33 | S_PTH ---
PATIENT: Brennen Roberts LOC: [id number] U#:[id number] AGE/SX: 64/M ROOM: 342 RE05/22/[address]: Maynor Umanzor MD : [id number] BED: 01 DIS: 05/25/2025 SPEC #: [id number] RECD: 05/25/25 08:10 STATUS: ABDIRAHMAN REQ #: [id number] DAMARIS: 05/22/25 17:[address]: Bhavin Sampson DEPT: [facility] Surgical RECD BY: Francesca Posey ENTERED: 05/25/25 08:10 SP TYPE: Surgical OTHR DR: Fred Dunn, MD Maynor Davidson MD Michael J. Walter, MD Tissues: A - Gallbladder Procedures: Hematoxylin and Eosin Stain Gross and Microscopic Level 3
--- NOTE | 2025-05-22 19:30 | P.OP_ITS ---
Procedure Note - Detailed Date of Procedure 05/22/25 Pre-op Diagnosis Cholelithiasis with acute cholecystitis and cystic duct obstruction Post-op Diagnosis Same (Cholelithiasis with gangrenous acute cholecystitis and cystic duct obstruction) Procedure Performed Laparoscopic cholecystectomy Surgeon Bhavin Sampson MD Technical Delivery Manager Rosina SCHMID Anesthesia General and Local Indications Patient presented to the emergency room with severe chest pain that eventually came to be more right upper quadrant pain. Imaging in the emergency room showed subsegmental nonocclusive pulmonary emboli but also acute cholecystitis. Subsequent ultrasound showed gallstones and acute cholecystitis. HIDA scan showed nonvisualization of the cystic duct. Patient's white blood cell count went higher today from yesterday. He has continued to have right upper quadrant pain and is taken to surgery now for severe acute cholecystitis. Findings Photographs were taken but much of the wall of the gallbladder had necrotic, gangrenous change. These areas were completely black. The gallbladder serosa that was not black was hyperemic with severe inflammation. On dissecting the wall of the gallbladder, there was layers of gangrenous tissue noted as well. On 1st entering the abdomen laparoscopically, there was probably 250 cc of old blood in the right upper quadrant just on the lateral aspect of the right lobe of the liver. It is possible that the gallbladder had ruptured and bleeding from the gallbladder and adjacent liver had caused this. I did not see an actual perforation in the gallbladder on initial examination. The liver appeared normal. Extrahepatic bile ducts were not dilated. Severe inflammation throughout the wall of the gallbladder and the cholecystohepatic triangle. Dissection off the liver was extremely difficult and in fact my 1st effort at removing the gallbladder from the liver involved leaving some of the back wall of the gallbladder on the liver. This was later removed. Aside from the 250 cc that were already in the abdomen, we probably lost 200 cc doing the surgery. There was no hemodynamic instability. The surgery itself took 2 hours which is at least 4 times longer than typical gallbladder surgery. Additionally there were dense small bowel and omental adhesions to a previously placed mesh in the upper abdominal midline from ventral hernia repair. These adhesions were taken down but were difficult and in some places, some of the mesh was left on the small intestine rather than risk bowel injury. This was easily 1 of the most difficult 5% of cholecystectomies is that I have performed. We had to use extensive cautery and hemostatic agents to control oozing of blood from the liver surface. A 19 [place] Jamie drain had to be placed. Description of Procedure Patient was taken to surgery and induced into general anesthesia. The abdomen is prepped draped. Trocars were placed in the usual fashion using [employer] optical trocars 5 mm camera. Once the initial trocars were in place, I went to the patient's right side and took down omental and small-bowel adhesions from his previous ventral hernia repair with mesh. Due to the small bowel being adherent, this was fairly difficult but appeared to be done safely. In particularly tight areas I left some of the mesh attached to the small bowel wall rather than risk injury. Eventually all these adhesions were taken down. We then were able to proceed with good visualization of the right upper quadrant. Gallbladder fundus was entirely gangrenous. The gallbladder itself was very distended and the wall appeared thickened. We used a laparoscopic aspirator and decompressed the gallbladder. We then retracted the gallbladder anterior 0 superiorly and additional adhesions to the body and infundibulum of the gallbladder were taken down. Eventually we exposed the infundibulum such that it could be retracted. There was a large area of gangrenous wall just above the infundibulum. Traction on the infundibulum allowed mostly blunt dissection in the cholecystohepatic triangle. Some dissection with hook cautery was carried out but the cystic duct and the cystic arteries were generally identified using blunt dissection, sometimes with the suction product introduction manager. I dissected the gallbladder off the liver over its lower 3rd. We dissected the cystic artery and cystic duct out very clearly. We then securely clipped and divided both the cystic duct and cystic artery. As we continued the dissection of the gallbladder off the liver, the upper half of the gallbladder was much more difficult to free from the liver. There was a lot of necrotic back wall of the gallbladder and some areas involved entry into the liver surface. However, I did tend err on leaving some of the gallbladder wall in place and removing the gallbladder from the liver in this manner. Once the gallbladder was removed, we placed it in an Endo-Catch bag. It was extricated through the 10 11 trocar site. This trocar site had to be enlarged and the fascia dilated to accommodate the gallbladder with its thickened wall and stones. Once the trocar was replaced, we used a towel clip to occlude the skin and subcutaneous so that we could reinsufflate. There were 2 large hematomas in the abdomen, 1 was from the blood that had accumulated prior to surgery. We used another Endo-Catch bag and removed most of the hematoma. There was additional hematoma and, in similar fashion we used Endo-Catch bags to remove this as well. Once the hematomas were removed, I suction the residual bloody drainage and old blood. We then exposed the gallbladder fossa. This was irrigated and suctioned as well. There was no brisk bleeding but there was old blood and evidence of oozing from the gallbladder fossa and liver bed. While reviewing the gallbladder fossa, I was able to tease off the posterior wall of the gallbladder from the liver. This was extricated and discarded. I then irrigated and suctioned the gallbladder fossa. We used cautery and attained significant hemostat basis from the gallbladder fossa with cautery. However there was still some oozing and Surgiflo was then used to control the residual oozing. Wall the Surgiflo was in place, irrigation and suctioning around the liver and the right colic gutter was carried out to remove any additional clot and old blood. We checked and re checked the gallbladder fossa. There was really no additional oozing and it appeared quite dry. A 19 Jamie drain was then passed through the right lower quadrant trocar site and positioned in the subhepatic space. The drain was sutured to the skin with 2-0 silk. We again checked all areas of dissection and the areas above and lateral to the liver as well as the right colic area. No ad ditional oozing or bleeding was seen. We then evacuated CO2 and removed the trocar sleeves. The fascia was closed at the epigastric trocar site with running 0 Vicryl suture. The subcutaneous at this site was closed with interrupted 3-0 Vicryl suture. The skin was loosely approximated with subcuticular 3-0 Vicryl suture. This wound and the other trocar sites were then closed at the skin level with 4-0 Monocryl skin suture. These were dressed with Exofin surgical adhesive. The drain site was dressed with drain sponge and Medipore tape. The drain was placed to bulb suction. The patient was then awakened and taken to recovery in good condition. Sponge and needle counts were correct x2. Estimated Blood Loss -200 Drains Yes (Nineteen [place] Jamie drain right subcostal position) Packing No Pathology Yes (Gallbladder) Complications None Condition Stable Disposition PACU [facility] Billing Surgery - Charge Forward: Surgery Billing (Laparoscopic adhesiolysis, laparoscopic cholecystectomy-add 22 modifier for increased difficulty)
[2025-05-22] MEDS: ONDANSETRON INJ 4 MG/2 ML VIAL IV PUSH (19:39)
[2025-05-22] MEDS: BRIMONIDINE TARTRATE 0.2% OP SOLN 5 ML BTL 1 DROP EACH EYE (21:48)
[2025-05-22] MEDS: LACTATED RINGERS 1,000 ML 125 ML IV CONT (21:49)
[2025-05-22] MEDS: FAMOTIDINE 20 MG/2 ML VIAL IV PUSH (21:54)
[2025-05-22] MEDS: ENOXAPARIN 30 MG/0.3 ML SYRINGE SUB-Q (21:54)
[2025-05-22] MEDS: TIMOLOL MALEATE 0.5% OP SOLN 5 ML BOTTLE 1 DROP EACH EYE (21:59)
[2025-05-23] VITALS (9 sets, daily range): BP systolic 100–125; BP diastolic 58–75; PULSE 84–122; RESP 16–20; TEMP 36.5–37.4; O2SAT 94–97
[2025-05-23] MEDS: PIPERACILLIN/TAZOBACTAM SOD 3.375 GM in SODIUM CHLORIDE 0.9% IV 50 ML 100 ML IVPB ×4 (00:10→17:05)
[2025-05-23] MEDS: ACETAMINOPHEN 500 MG TABLET PO ×2 (04:57→22:26)
[2025-05-23 06:12] LABS: Hematocrit 32.4 % (42.0-52.0); Hemoglobin 10.8 g/dL (14.0-18.0); Immature Granulocyte Percent A 0.7 % (0-0.5); Lymphocytes Absolute Auto 1.08 K/mm3 (0.9-3.2); Mean Corpuscular HGB Conc 33.3 g/dl (32-36); Mean Corpuscular Hemoglobin 32.2 pg (26-34); Mean Corpuscular Volume 96.7 fl (80-100); Nucleated Red Blood Cells Absolute Auto 0.000 K/mm3 (0.0-0.012); Nucleated Red Blood Cells Perc 0.0 % (0.0-0.2); Platelet Count Result 301 k/mm3 (150-375); Red Blood Count 3.35 M/mm3 (4.6-6.20); White Blood Count 18.1 K/mm3 (4.5-10.0)
[2025-05-23 06:47] LABS: Alanine Aminotransferase 89 U/L (6-50); Albumin Level 3.0 g/dL (3.5-5.1); Alkaline Phosphatase 60 U/L (38-126); Anion Gap 6 mmol/L (4-12); Aspartate Amino Transferase 81 U/L (17-59); Bilirubin,Total 0.9 mg/dL (0.2-1.3); Blood Urea Nitrogen 10 mg/dL (9-20); Calcium 7.8 mg/dL (8.4-10.2); Carbon Dioxide 26 mmol/L (22-30); Chloride 102 mmol/L (98-107); Estimated CRCL calculation 92 ml/min; Estimated Glomerular Filt Rate > 60; Glucose 124 mg/dL (65-110); Potassium 3.3 mmol/L (3.4-5.0); Sodium 134 mmol/L (137-145); Total Protein 5.9 g/dL (6.3-8.2)
[2025-05-23 07:04] LABS: CRP 25.3 mg/dL (<1.0)
[2025-05-23] MEDS: BRIMONIDINE TARTRATE 0.2% OP SOLN 5 ML BTL 1 DROP EACH EYE ×2 (08:25→17:12)
[2025-05-23] MEDS: FAMOTIDINE 20 MG/2 ML VIAL IV PUSH ×2 (08:30→22:15)
[2025-05-23] MEDS: LOSARTAN POTASSIUM 50 MG TABLET PO (08:30)
[2025-05-23] MEDS: ENOXAPARIN 30 MG/0.3 ML SYRINGE SUB-Q (08:30)
[2025-05-23] MEDS: TIMOLOL MALEATE 0.5% OP SOLN 5 ML BOTTLE 1 DROP EACH EYE ×2 (08:36→17:15)
[2025-05-23] MEDS: POTASSIUM CHLORIDE 20 MEQ ER TABLET 40 MEQ PO (11:27)
--- NOTE | 2025-05-23 11:50 | PM.IMPN ---
Progress Note: A&P Assessment and Plan (1) Broncholithiasis: Code(s): J98.09 - Other diseases of bronchus, not elsewhere classified Status: Acute (2) Acute cholecystitis: Code(s): K81.0 - Acute cholecystitis Status: Acute (3) Pulmonary embolism: Code(s): I26.99 - Other pulmonary embolism without acute cor pulmonale Status: Acute (4) Sepsis: Code(s): A41.9 - Sepsis, unspecified organism Status: Acute Plan Acute PE: CT concerning for subsegmental PE. D Dimer elevated lower ext neg for DVT. Had tachypnea but not tachycardia on lovenox ECHO unremarkable pulmonary team on board Acute cholecystitis S/P laparoscopic cholecystectomy and drain placement 05/23/25 CT abd concerning for acute cholecystitis. US showed Cholelithiasis with highly suggestive cholecystitis HIDA scan showed Cystic duct obstruction. Chest pain resolved troponin was neg. EKG neg for acute changes ECHO unremarkable Continue to monitor possible sepsis in setting of cholecystitis tachypnea and leucocytosis continue Zosyn follow culture results Subjective Date/time seen: 05/23/25 11:50 Interval history: per HPi: Patient is 64 y male presented to the Er with chest pain yesterday, about one hour later moved to the R upper abd. patient notes the pain was doll getting worse with taking deep breath. denies any fever, chills, SOB, N/V. In the Er vital signs were stable, no fever, no tachycardia. had some tachypnea. Lab tests showed WBC 13.3-->18.8, troponin was neg. D Dimer was mildly elevated. CTA concerning for subsegmental PE. lower ext neg for DVT. CT abd concerning for acute cholecystitis. Surgery and pulmonary team were consulted and patient was admitted for further management. US showed Cholelithiasis with highly suggestive cholecystitis HIDA scan showed Cystic duct obstruction 05/23/25 Patient was seen and examined at bedside. he is feeling fine. has some soreness on his abd. underwent laparoscopic cholecystectomy and drain placement yesterday. continue IV Abx. follow culture results. continue to monitor. will continue Lovenox for PE Review of Systems Review of Systems: All systems reviewed & are unremarkable except as noted in HPI and below Constitutional: Constitutional: Reports no additional constitutional complaints Eyes: Eyes: Reports no additional eye complaints ENT: Reports system reviewed and no additional complaints, except as documented Cardiovascular: Cardiovascular: Reports no additional cardiovascular complaints Respiratory: Respiratory: Reports no additional respiratory complaints Gastrointestinal: Gastrointestinal: Reports no additional gastrointestinal complaints Musculoskeletal: Musculoskeletal: Reports no additional musculoskeletal complaints Neurologic: Reports system reviewed and no additional complaints, except as documented Psychiatric: Psychiatric: Reports no additional psychiatric complaints Endocrine: Endocrine: Reports no additional endocrine complaints Hematologic/Lymphatic: Hematologic/Lymphatic: Reports no additional hematologic/lymphatic complaints Allergic/Immunologic: Allergic/Immunologic: Reports no additional allergic/immunologic complaints Exam Narrative: GENERAL: Well appearing, well-nourished, non-toxic, in no acute distress. HEAD: Normocephalic, atraumatic. NECK: Supple. No adenopathy, no masses. RESPIRATORY: Airway patent, respirations nonlabored. Clear to auscultation bilaterally, no rales, rhonchi, wheezing. CARDIOVASCULAR: Regular rate and rhythm without murmurs, rubs, or gallops. Peripheral pulses 2+ and equal bilaterally. ABDOMINAL: Soft, RUQ drain, nondistended, no hepatosplenomegaly. Normoactive BS, + Avalos's test MUSCULOSKELETAL: Moves all extremities. Strength/ROM intact without gross deformities. SKIN: Warm, dry, normal color. No rashes. NEURO: A&O X3. Speech clear. Cranial nerves II-XII intact. No ataxic movements. PSYCHIATRIC: Appropriate mood and affect. Normal interaction. Const: General: cooperative, healthy appearing, comfortable and no acute distress Orientation/consciousness: oriented to person, oriented to place and oriented to time HENMT: Head: normal to inspection Ears: hearing grossly normal bilaterally Eyes: General: appearance normal, both eyes and all related structures Neck: Neck: normal visual inspection Chest: Chest palpation & inspection: normal inspection of the chest Other: No tenderness to palpation in the right lower ribcage. Resp: Effort & Inspection: normal respiratory effort and able to speak in complete sentences Auscultation: no crackles, no rales, no rhonchi, no wheezes and lung sounds not diminished Cardio: Jugular venous distension: no JVD Rate: regular rate GI: Inspection: normal to inspection and non-distended Other: Right upper quadrant tenderness improving. has jose eduardo. Skin: General skin exam: normal color and no rashes or lesions noted Neuro: General: oriented to person, oriented to place and oriented to time Speech: normal speech Sensory Exam: normal sensation Extrem: General: normal to inspection and no edema Psych: Appearance: grossly normal Mental Status: mental status grossly normal Objective Data Vital Signs Vital Signs: Vital Signs - 24 hr 05/22/25 12:22 05/22/25 14:00 05/22/25 16:15 Temperature 97.6 F 99.2 F Pulse Rate 68 72 96 Respiratory Rate 18 20 Blood Pressure 142/74 H 137/85 Pulse Oximetry 98 97 Oxygen Delivery Room Air Oxygen Flow Rate 05/22/25 19:23 05/22/25 19:38 05/22/25 19:53 Temperature 99 F Pulse Rate 106 H 103 H 97 Respiratory Rate 17 23 H 22 H Blood Pressure 141/79 H 138/82 141/82 H Pulse Oximetry 98 99 95 Oxygen Delivery Simple Face Mask Simple Face Mask Nasal Cannula Oxygen Flow Rate 8 8 2 05/22/25 20:08 05/22/25 20:30 05/22/25 20:58 Temperature 97.9 F 98.3 F 98.5 F Pulse Rate 97 95 88 Respiratory Rate 23 H 18 18 Blood Pressure 142/80 H 130/96 H 132/72 Pulse Oximetry 94 95 95 Oxygen Delivery Nasal Cannula Oxygen Flow Rate 2 05/22/25 21:58 05/23/25 00:00 05/23/25 00:37 Temperature 98.6 F 99.3 F Pulse Rate 95 116 H 100 Respiratory Rate 16 16 Blood Pressure 128/71 125/73 Pulse Oximetry 95 96 Oxygen Delivery Oxygen Flow Rate 05/23/25 04:00 05/23/25 05:58 05/23/25 08:04 Temperature 98.6 F Pulse Rate 93 98 122 H Respiratory Rate 18 Blood Pressure 121/75 Pulse Oximetry 94 Oxygen Delivery Oxygen Flow Rate 05/23/25 08:35 05/23/25 09:58 Temperature 98.2 F Pulse Rate 86 Respiratory Rate 18 Blood Pressure 103/68 Pulse Oximetry 97 Oxygen Delivery Room Air Oxygen Flow Rate Intake/Output Intake/Output: Intake & Output 05/20/25 05/21/25 05/22/25 05/23/25 23:59 23:59 23:59 23:59 Intake Total 3110.1 200 Output Total 30 50 Balance 3080.1 150 Meds/Results Medications: Active Medications Generic Name Dose Route Start Last Admin Trade Name Freq PRN Reason Stop Dose Admin Acetaminophen 500 mg 05/22/25 20:13 05/23/25 04:57 Acetaminophen 500 Mg Tablet PO 500 mg Q6H PRN Administration Pain Rated 1-3 Brimonidine Tartrate 1 drop 05/22/25 21:00 05/23/25 08:25 Brimonidine Tartrate 0.2% Op Soln 5 Ml Btl EACH EYE 1 drop Q12H LANDRY Administration Enoxaparin Sodium 30 mg 05/22/25 21:00 05/23/25 08:30 Enoxaparin 30 Mg/0.3 Ml Syringe SUB-Q 30 mg Q12HR LANDRY Administration Famotidine 20 mg 05/22/25 21:00 05/23/25 08:30 Famotidine 20 Mg/2 Ml Vial IV PUSH 20 mg Q12HR LANDRY Administration Hydrochlorothiazide 12.5 mg 05/23/25 09:00 05/23/25 08:30 Hydrochlorothiazide 12.5 Mg Capsule PO 12.5 mg DAILY LANDRY Administration Lactated Ringer's 1,000 mls @ 125 mls/hr 05/22/25 20:13 05/23/25 05:02 Lr - Lactated Ringers Iv IV CONT Not Given .Q8H LANDRY Ibuprofen 800 mg in 200 mls @ 400 mls/hr 05/22/25 20:13 Caldolor 800 Mg/200 Ml IVPB Q6H PRN Breakthrough Pain Rated 1-3 or NPO Piperacillin Sod/Tazobactam 50 mls @ 100 mls/hr 05/23/25 00:00 05/23/25 11:27 Sod 3.375 gm/ Sodium Chloride IVPB 100 mls/hr Q6H LANDRY Administration Latanoprost 1 drop 05/23/25 20:35 Latanoprost 0.005% Op Soln 2.5 Ml Btl EACH EYE QPM LANDRY Losartan Potassium 50 mg 05/23/25 09:00 05/23/25 08:30 Losartan Potassium 50 Mg Tablet PO 50 mg DAILY LANDRY Administration Morphine Sulfate 1 mg 05/22/25 20:13 Morphine Sulfate (*Crx) 2 Mg/Ml Inj IV PUSH Q2H PRN Breakthrough Pain Rated 4-6 or NPO Morphine Sulfate 2 mg 05/22/25 20:13 Morphine Sulfate (*Crx) 4 Mg/Ml Inj IV PUSH Q2H PRN Breakthrough Pain Rated 7-10 or NPO Naloxone HCl 0.1 mg 05/22/25 20:13 Naloxone Hcl 0.4 Mg/Ml Vial IV PUSH Q2M PRN Opiate Reversal Ondansetron HCl 4 mg 05/22/25 20:13 Ondansetron Inj 4 Mg/2 Ml Vial IV PUSH Q4H PRN Nausea And Vomiting Oxycodone/Acetaminophen 1 tablet 05/22/25 20:13 Oxycodone/Acetaminophen (*Crx) 5-325 Mg Tablet PO Q4H PRN Pain Rated 4-6 Timolol Maleate 1 drop 05/22/25 21:00 05/23/25 08:36 Timolol Maleate 0.5% Op Soln 5 Ml Bottle EACH EYE 1 drop Q12H LANDRY Administration Radiology Results: ITS Impressions Chest X-Ray 05/21/25 18:27 IMPRESSION: No acute cardiopulmonary process. Chest/Abdomen/Pelvis CTA 05/21/25 23:44 IMPRESSION: Limited evaluation of segmental and subsegmental pulmonary arteries. No central embolus detected. Small subsegmental nonocclusive emboli are suspected in the right upper and lower lobes. This would represent a small clot burden. No CT evidence of right heart strain. 3 mm broncholith with distal mucoid impaction in the superior segment of the right lower lobe. Mild interstitial edema. Mild aortic ectasia. Cardiomegaly. Hepatomegaly. Acute cholecystitis. Fluid tracking along the common bile duct with mild duct hyperemia, presumably reactive, unless there are additional signs or symptoms of cholangitis. Biju hepatic and peripancreatic lymphadenopathy. 2.0 cm indeterminate density left adrenal mass. Recommend nonemergent but timely outpatient adrenal CT. Mesenteric panniculitis. Venous Doppler Study 05/22/25 09:55 IMPRESSION: Negative bilateral lower extremity venous US. No deep vein thrombosis. Abdomen Ultrasound 05/22/25 09:59 IMPRESSION: Cholelithiasis with highly suggestive cholecystitis. Clinical correlation advised. Otherwise, normal limited abdominal ultrasound. Hepatobiliary Scan Nuclear Medicine 05/22/25 12:46 Impression: Cystic duct obstruction.. Labs Labs: Laboratory Results - last 24 hr 05/23/25 05:19 WBC 18.1 H RBC 3.35 L Hgb 10.8 L Hct 32.4 L MCV 96.7 MCH 32.2 MCHC 33.3 RDW 14.5 Plt Count 301 MPV 10.3 Immature Gran % (Auto) 0.7 H Neut % (Auto) 81.6 H Lymph % (Auto) 6.0 L [place] % (Auto) 11.5 H Eos % (Auto) 0.1 Baso % (Auto) 0.1 L Lymph # (Auto) 1.08 [place] # (Auto) 2.1 H Eos # (Auto) 0.0 Baso # (Auto) 0.0 Abs Immat Gran (auto) 0.12 H Absolute Neuts (auto) 14.8 H Absolute Nucleated RBC 0.000 Nucleated RBC % 0.0 Sodium 134 L Potassium 3.3 L Chloride 102 Carbon Dioxide 26 Anion Gap 6 BUN 10 D Creatinine 0.72 Estim Creat Clear Calc 92 Estimated GFR > 60 Glucose 124 H Calcium 7.8 L Total Bilirubin 0.9 AST 81 H ALT 89 H Alkaline Phosphatase 60 C-Reactive Protein 25.3 H Total Protein 5.9 L Albumin 3.0 L
--- NOTE | 2025-05-23 14:45 | P.PNAN_ITS ---
Anes - Prog Note Post-Op Date/Time: 05/23/25 14:45 Cardiovascular status: normal Respiratory status: normal Airway patency: baseline Mental status: baseline Post-Op hydration status: normal Vital Signs: Last Vital Signs Temp 36.8 C 05/23/25 09:58 Pulse 86 05/23/25 09:58 Resp 18 05/23/25 09:58 BP 103/68 05/23/25 09:58 Pulse Ox 97 05/23/25 09:58 O2 Del Method Room Air 05/23/25 08:35 O2 Flow Rate 2 05/22/25 20:08 Pain Score (VAS): 12/15 I/O: Intake & Output 05/22/25 05/23/25 05/23/25 23:59 07:59 15:59 Intake Total 800 200 50 Output Total 30 50 Balance 770 200 0 Laboratory Tests 05/23/25 05:19 05/23/25 05:19 05/23/25 05:19 WBC 18.1 H RBC 3.35 L Hgb 10.8 L Hct 32.4 L MCV 96.7 MCH 32.2 MCHC 33.3 RDW 14.5 Plt Count 301 MPV 10.3 Immature Gran % (Auto) 0.7 H Neut % (Auto) 81.6 H Lymph % (Auto) 6.0 L [place] % (Auto) 11.5 H Eos % (Auto) 0.1 Baso % (Auto) 0.1 L Lymph # (Auto) 1.08 [place] # (Auto) 2.1 H Eos # (Auto) 0.0 Baso # (Auto) 0.0 Abs Immat Gran (auto) 0.12 H Absolute Neuts (auto) 14.8 H Absolute Nucleated RBC 0.000 Nucleated RBC % 0.0 Sodium 134 L Potassium 3.3 L Chloride 102 Carbon Dioxide 26 Anion Gap 6 BUN 10 D Creatinine 0.72 Estim Creat Clear Calc 92 Estimated GFR > 60 Glucose 124 H Calcium 7.8 L Total Bilirubin 0.9 AST 81 H ALT 89 H Alkaline Phosphatase 60 C-Reactive Protein 25.3 H Total Protein 5.9 L Albumin 3.0 L Post-procedural complaints: none Patient Feedback: Patient satisfied with anesthetic care.
[2025-05-23] MEDS: oxyCODONE/ACETAMINOPHEN (*CRX) 5-325 MG TABLET 1 TABLET PO (14:52)
[2025-05-23] MEDS: LACTATED RINGERS 1,000 ML 125 ML IV CONT ×2 (14:53→22:58)
--- NOTE | 2025-05-23 15:04 | PM.PNGS ---
Progress Note: A&P Assessment and Plan (1) S/P laparoscopic cholecystectomy: Code(s): Z90.49 - Acquired absence of other specified parts of digestive tract Status: Acute Assessment and Plan: Doing well postop day 1. Will advance to low-fat diet. He has been up to the bathroom and will encourage ambulation. DC telemetry. Continue IV Zosyn antibiotics (2) Cholelithiasis and acute cholecystitis with obstruction: Code(s): K80.01 - Calculus of gallbladder with acute cholecystitis with obstruction Status: Acute Assessment and Plan: Gangrenous gallbladder wall. I showed patient and his and daughter pictures that were taken intraoperatively. Pathology is pending. (3) Pulmonary embolism: Qualifiers: Pulmonary embolism type: multiple subsegmental (without acute cor pulmonale) Qualified Code(s): I26.94 - Multiple subsegmental thrombotic pulmonary emboli without acute cor pulmonale Code(s): I26.99 - Other pulmonary embolism without acute cor pulmonale Status: Acute Assessment and Plan: CTA of the chest limited by beam hardening and motion artifact. Small nonocclusive subsegmental pulmonary emboli are suspected in right upper lobe and right lower lobe. Anticoagulation recommended by pulmonology. Hold on resuming heparin for now. Venous Dopplers of both lower extremities were negative. Subjective Subjective Date/Time Seen: 05/23/25 15:04 Post Op day: 1 Patient reports: no new complaints, still having pain (Much better than preop but feels like someone punched him in the stomach. No nausea or vomiting. Taking Tylenol for pain), tolerating liquids well, no bowel movement and afebrile Exam Const: General: cooperative, comfortable, no acute distress, alert and awake Nutritional Appearance: well nourished and thin Orientation/consciousness: patient oriented x3 Resp: Effort & Inspection: normal respiratory effort, able to speak in complete sentences, no cough and not labored GI: Inspection: no abdominal wall ecchymosis, non-distended, incision (Healing well, serosanguineous SIMON output) and scaphoid GI Palp: Yes Soft to palpation and Yes Tenderness to palpation present (GI) (Expected postoperative tenderness) Neuro: General: patient oriented x3 and no focal motor deficits Extrem: General: no edema Psych: Affect: normal affect Insight: Good insight present (Psych) Judgement: Good judgement present (Psych) Objective Data Vital Signs Vital Signs: Vital Signs - 24 hr 05/22/25 16:15 05/22/25 19:23 05/22/25 19:38 Temperature 37.3 C 37.2 C Pulse Rate 96 106 H 103 H Respiratory Rate 20 17 23 H Blood Pressure 137/85 141/79 H 138/82 Pulse Oximetry 97 98 99 Oxygen Delivery Room Air Simple Face Mask Simple Face Mask Oxygen Flow Rate 8 8 05/22/25 19:53 05/22/25 20:08 05/22/25 20:30 Temperature 36.6 C 36.8 C Pulse Rate 97 97 95 Respiratory Rate 22 H 23 H 18 Blood Pressure 141/82 H 142/80 H 130/96 H Pulse Oximetry 95 94 95 Oxygen Delivery Nasal Cannula Nasal Cannula Oxygen Flow Rate 2 2 05/22/25 20:58 05/22/25 21:58 05/23/25 00:00 Temperature 36.9 C 37.0 C Pulse Rate 88 95 116 H Respiratory Rate 18 16 Blood Pressure 132/72 128/71 Pulse Oximetry 95 95 Oxygen Delivery Oxygen Flow Rate 05/23/25 00:37 05/23/25 04:00 05/23/25 05:58 Temperature 37.4 C 37.0 C Pulse Rate 100 93 98 Respiratory Rate 16 18 Blood Pressure 125/73 121/75 Pulse Oximetry 96 94 Oxygen Delivery Oxygen Flow Rate 05/23/25 08:04 05/23/25 08:35 05/23/25 09:58 Temperature 36.8 C Pulse Rate 122 H 86 Respiratory Rate 18 Blood Pressure 103/68 Pulse Oximetry 97 Oxygen Delivery Room Air Oxygen Flow Rate Intake/Output Intake/Output: Intake & Output 05/20/25 05/21/25 05/22/25 05/23/25 23:59 23:59 23:59 23:59 Intake Total 3110.1 1250 Output Total 30 50 Balance 3080.1 1200 Meds/Results Medications: Active Medications Generic Name Dose Route Start Last Admin Trade Name Freq PRN Reason Stop Dose Admin Acetaminophen 500 mg 05/22/25 20:13 05/23/25 04:57 Acetaminophen 500 Mg Tablet PO 500 mg Q6H PRN Administration Pain Rated 1-3 Brimonidine Tartrate 1 drop 05/22/25 21:00 05/23/25 08:25 Brimonidine Tartrate 0.2% Op Soln 5 Ml Btl EACH EYE 1 drop Q12H LANDRY Administration Enoxaparin Sodium 80 mg 05/23/25 21:00 Enoxaparin 80 Mg/0.8 Ml Syringe SUB-Q Q12H LANDRY Famotidine 20 mg 05/22/25 21:00 05/23/25 08:30 Famotidine 20 Mg/2 Ml Vial IV PUSH 20 mg Q12HR LANDRY Administration Hydrochlorothiazide 12.5 mg 05/23/25 09:00 05/23/25 08:30 Hydrochlorothiazide 12.5 Mg Capsule PO 12.5 mg DAILY LANDRY Administration Lactated Ringer's 1,000 mls @ 125 mls/hr 05/22/25 20:13 05/23/25 14:53 Lr - Lactated Ringers Iv IV CONT 125 mls/hr .Q8H LANDRY Administration Ibuprofen 800 mg in 200 mls @ 400 mls/hr 05/22/25 20:13 Caldolor 800 Mg/200 Ml IVPB Q6H PRN Breakthrough Pain Rated 1-3 or NPO Piperacillin Sod/Tazobactam 50 mls @ 100 mls/hr 05/23/25 00:00 05/23/25 11:57 Sod 3.375 gm/ Sodium Chloride IVPB Infused Q6H [facility] Infusion Latanoprost 1 drop 05/23/25 20:35 Latanoprost 0.005% Op Soln 2.5 Ml Btl EACH EYE QPM [facility] Losartan Potassium 50 mg 05/23/25 09:00 05/23/25 08:30 Losartan Potassium 50 Mg Tablet PO 50 mg DAILY LANDRY Administration Morphine Sulfate 1 mg 05/22/25 20:13 Morphine Sulfate (*Crx) 2 Mg/Ml Inj IV PUSH Q2H PRN Breakthrough Pain Rated 4-6 or NPO Morphine Sulfate 2 mg 05/22/25 20:13 Morphine Sulfate (*Crx) 4 Mg/Ml Inj IV PUSH Q2H PRN Breakthrough Pain Rated 7-10 or NPO Naloxone HCl 0.1 mg 05/22/25 20:13 Naloxone Hcl 0.4 Mg/Ml Vial IV PUSH Q2M PRN Opiate Reversal Ondansetron HCl 4 mg 05/22/25 20:13 Ondansetron Inj 4 Mg/2 Ml Vial IV PUSH Q4H PRN Nausea And Vomiting Oxycodone/Acetaminophen 1 tablet 05/22/25 20:13 05/23/25 14:52 Oxycodone/Acetaminophen (*Crx) 5-325 Mg Tablet PO 1 tablet Q4H PRN Administration Pain Rated 4-6 Timolol Maleate 1 drop 05/22/25 21:00 05/23/25 08:36 Timolol Maleate 0.5% Op Soln 5 Ml Bottle EACH EYE 1 drop Q12H LANDRY Administration Radiology Results: ITS Impressions Chest X-Ray 05/21/25 18:27 IMPRESSION: No acute cardiopulmonary process. Chest/Abdomen/Pelvis CTA 05/21/25 23:44 IMPRESSION: Limited evaluation of segmental and subsegmental pulmonary arteries. No central embolus detected. Small subsegmental nonocclusive emboli are suspected in the right upper and lower lobes. This would represent a small clot burden. No CT evidence of right heart strain. 3 mm broncholith with distal mucoid impaction in the superior segment of the right lower lobe. Mild interstitial edema. Mild aortic ectasia. Cardiomegaly. Hepatomegaly. Acute cholecystitis. Fluid tracking along the common bile duct with mild duct hyperemia, presumably reactive, unless there are additional signs or symptoms of cholangitis. Biju hepatic and peripancreatic lymphadenopathy. 2.0 cm indeterminate density left adrenal mass. Recommend nonemergent but timely outpatient adrenal CT. Mesenteric panniculitis. Venous Doppler Study 05/22/25 09:55 IMPRESSION: Negative bilateral lower extremity venous US. No deep vein thrombosis. Abdomen Ultrasound 05/22/25 09:59 IMPRESSION: Cholelithiasis with highly suggestive cholecystitis. Clinical correlation advised. Otherwise, normal limited abdominal ultrasound. Hepatobiliary Scan Nuclear Medicine 05/22/25 12:46 Impression: Cystic duct obstruction.. Labs Labs: Laboratory Results - last 24 hr 05/23/25 05:19 WBC 18.1 H RBC 3.35 L Hgb 10.8 L Hct 32.4 L MCV 96.7 MCH 32.2 MCHC 33.3 RDW 14.5 Plt Count 301 MPV 10.3 Immature Gran % (Auto) 0.7 H Neut % (Auto) 81.6 H Lymph % (Auto) 6.0 L [place] % (Auto) 11.5 H Eos % (Auto) 0.1 Baso % (Auto) 0.1 L Lymph # (Auto) 1.08 [place] # (Auto) 2.1 H Eos # (Auto) 0.0 Baso # (Auto) 0.0 Abs Immat Gran (auto) 0.12 H Absolute Neuts (auto) 14.8 H Absolute Nucleated RBC 0.000 Nucleated RBC % 0.0 Sodium 134 L Potassium 3.3 L Chloride 102 Carbon Dioxide 26 Anion Gap 6 BUN 10 D Creatinine 0.72 Estim Creat Clear Calc 92 Estimated GFR > 60 Glucose 124 H Calcium 7.8 L Total Bilirubin 0.9 AST 81 H ALT 89 H Alkaline Phosphatase 60 C-Reactive Protein 25.3 H Total Protein 5.9 L Albumin 3.0 L
--- NOTE | 2025-05-23 15:58 | P.PNPL_ITS ---
Progress Note: A&P Assessment and Plan (1) Pulmonary embolism: Qualifiers: Pulmonary embolism type: multiple subsegmental (without acute cor pulmonale) Qualified Code(s): I26.94 - Multiple subsegmental thrombotic pulmonary emboli without acute cor pulmonale Code(s): I26.99 - Other pulmonary embolism without acute cor pulmonale Status: Acute Assessment and Plan: Patient with no prior history of DVT or PE, status post left knee replacement 2016. Presents with anterior upper chest dull pain with no other associated respiratory symptoms. On admission he had a Well's score of 0, leukocytosis of 13.3, normal LFTs, BNP 85, troponins negative x2 a D-dimer positive at 0.64. CT angiogram of the chest was limited by beam hardening and motion artifact demonstrated small nonocclusive subsegmental PE right upper lobe and right lower lobe with no right heart strain. There is a 3 mm broncholith with distal mucus impaction in the superior segment of the right lower lobe. There was a calcified granuloma in the left lower lobe. CT abdomen was consistent with acute cholecystitis. Patient was started on IV heparin, given ceftriaxone and Flagyl. Lower extremity Dopplers negative for DVT. Abdominal ultrasound with cholelithiasis with highly suggestive cholecystitis. I reviewed the CT andrew ogram of the chest with another radiologist who felt that this study was not definitive for PE and if PE was present this represented a very small clot burden. 05/22/2025: Currently the patient tells me he sweated once today but denies fever, chills, rigors. he denies shortness of breath at rest, dyspnea on exertion, cough, phlegm, hemoptysis or dull chest pain. When he takes a deep breath or cough he has right lower rib pain and right upper quadrant pain that appears pleuritic in nature. He denies any leg swelling. recent plane trips, recent car trips, recent chest or leg trauma. He is afebrile. room air saturation 94%. White blood cell count 18.8. 05/23/2025; echo was normal. EF 65-70%, and no RV strain. He is going to be on systemic anticoagulation for at least 3 months. He understands the benefits and risks (bleeding complications) from anticoagulation. He is on enoxaparin 80 mg sub-cut Q 12 hours post op. Can switch to oral DOAC -direct oral anticoagulant tomorrow. This may be determine by what his insurance will cover. (2) Broncholithiasis: Code(s): J98.09 - Other diseases of bronchus, not elsewhere classified Status: Acute Assessment and Plan: Patient has broncholith in the superior segment of the right lower lobe with small area of mucoid impaction and distal bronchiectasis. Patient does not have recurrent bronchitis or infectious pulmonary complaints. At this time no further follow up required. Subjective Date/time seen: 05/23/25 15:58 Interval history: 66-year-old with a history of hypertension, glaucoma, COVID 10/2020 and made a complete recovery, s/p left knee replacement for arthritis in 2017. Patient denies a history of childhood asthma, COPD, recurrent bronchial infections, and has no respiratory limitations in his activities of daily living. At baseline he can walk an unlimited distance. He does not have, it chronic cough, phlegm or hemoptysis. Patient is a never smoker, was exposed to secondhand smoke from his mother but none since. Patient worked at [employer] throughout his entire career. 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 Patient has no known history of blood clots and no history of blood clots in the family. patient was in his usual state of health and the evening of 05/18/2025 he took 2 mg of Ativan in anticipation of deep cavity and crown placement on 05/19/2025. On 05/19/2025 the patient woke up in his usual state of health and took 2 mg of Ativan and had his dental procedure performed without complications. He walked to the car after that and had no respiratory issues. Patient slept until 230 in the afternoon and then his woke him up and he walked to the couch but he remained very sleepy. Patient went to bed at 5:30 a.m. at that time had no respiratory symptoms. Patient slept until 730 in the morning. On 05/20/2024 patient woke up at 7:30 a.m. was walking, had no respiratory issues, felt a little groggy or loopy. He drove to his son house and work done carpentry projects until 3:00 p.m. and came home and felt exhausted. He ate dinner. The states that his groggy and loopy mental status were better. Patient had no respiratory issues and went to bed. 05/21/2025 patient woke up with completely normal mental status. He noticed dull bilateral anterior chest pain rated at a score of 2 to 3/10. He had no other respiratory issues went to his son's house to perform carpentry. His temporary crown fell off and he went to the dentist. He then drove home. his dull anterior chest pain had resolved. At approximately 5:00 p.m. He developed some right-sided Pleuritic pain located in the lower ribcage and right upper quadrant. He vomited once. 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 He cut the grass with no respiratory issues and then had another episode of vomiting. He presented to the emergency department about 6:00 p.m. As a right lower rib pain and right upper quadrant pain intensified.. In the emergency department he complained of chest pain that had resolved and now complained of right upper abdominal pain. His blood pressure is 126/83, heart rate 69, respirations 16 and his room air saturations were 96%. His Wells criteria score was 0. His white blood cell count was 13.3, his creatinine was 0.76, his BNP was 85, his troponins were negative x2, his alk-phos was 53, his AST was 5028, ALT was 16. His D-dimer was positive at 0.64, TSH was 0.971. CT angiogram chest abdomen pelvis was limited by beam hardening and motion artifact demonstrated small nonocclusive subsegmental PE right upper lobe and right lower lobe with no right heart strain. There is a 3 mm broncholith with distal mucus impaction in the superior segment of the right lower lobe. There was a calcified granuloma in the left lower lobe. CT abdomen was consistent with acute cholecystitis. Patient was started on IV heparin, given ceftriaxone and Flagyl. 05/22/2025: Currently the patient tells me he sweated once today but denies fever, chills, rigors. he denies shortness of breath at rest, dyspnea on exertion, cough, phlegm, hemoptysis or dull chest pain. When he takes a deep breath or cough he has right lower rib pain and right upper quadrant pain that appears pleuritic in nature. He denies any leg swelling. recent plane trips, recent car trips, recent chest or leg trauma. He is afebrile. room air saturation 94%. White blood cell count 18.8. Lower extremity Dopplers negative for DVT. Abdominal ultrasound with cholelithiasis with highly suggestive cholecystitis. I reviewed the CT angiogram of the chest with another radiologist who felt that this study was not definitive for PE and if they were present this represented day a very small clot burden. 05/23/2025: He is seen in Room 342 for follow up for possible PE with negative lower extremity Doppler. He is on room air, saturation 95-97%, feels tired, exhausted from the surgery however he is not having shortness of breath. All of his chest symptoms have resolved. He is not coughing, has no sputum. He is using his spirometer, can inhale > 1 liter. Data: 05/22/25: Limited ABDOMINAL ULTRASOUND (Doppler ultrasound interrogation techniques used as needed for this exam.) Ordering provider: Bhavin Sampson History: . RUQ pain . Comparison: None. FINDINGS: PANCREAS: Not visualized. PORTAL VEIN: Hepatopedal flow demonstrated. LIVER: Partially obscured by bowel gas. Normal size and echotexture. No focal hepatic lesions. Minimal Perihepatic fluid collections identified anteriorly. BILIARY DUCTS: No intra or extrahepatic biliary dilation. Common bile duct measures 4.7 mm in diameter which is normal for patient's age. GALLBLADDER: Stone is seen in the neck of the gallbladder measuring 2.1 cm. Sludge, gallbladder wall thickening and pericholecystic fluid are noted. Wall thickness is 5 mm. Negative sonographic Avalos's sign. FREE FLUID: None visualized within the upper abdomen. IMPRESSION: Cholelithiasis with highly suggestive cholecystitis. Clinical correlation advised. Otherwise, normal limited abdominal ultrasound. 05/22/25: BILATERAL LOWER EXTREMITY VENOUS ULTRASOUND Ordering provider: Bhavin Sampson MD History: . eval for DVT . Comparison: None. FINDINGS: RIGHT LOWER EXTREMITY VEINS: --COMMON FEMORAL: Patent and free of thrombus. Normal compressibility, phasic flow and augmentation. --PROXIMAL SUPERFICIAL FEMORAL: Patent and free of thrombus. Normal compressibility, phasic flow and augmentation. --DISTAL SUPERFICIAL FEMORAL: Patent and free of thrombus. Normal compressibility, phasic flow and augmentation. --POPLITEAL: Patent and free of thrombus. Normal compressibility, phasic flow and augmentation. --POSTERIOR TIBIAL: Patent and free of thrombus. Normal compressibility, phasic flow and augmentation. LEFT LOWER EXTREMITY VEINS: --COMMON FEMORAL: Patent and free of thrombus. Normal compressibility, phasic flow and augmentation. --PROXIMAL SUPERFICIAL FEMORAL: Patent and free of thrombus. Normal compressibility, phasic flow and augmentation. --DISTAL SUPERFICIAL FEMORAL: Patent and free of thrombus. Normal co mpressibility, phasic flow and augmentation. --POPLITEAL: Patent and free of thrombus. Normal compressibility, phasic flow and augmentation. --POSTERIOR TIBIAL: Patent and free of thrombus. Normal compressibility, phasic flow and augmentation. IMPRESSION: Negative bilateral lower extremity venous US. No deep vein thrombosis. 05/21/25; EXAMINATION: CTA chest PE abdomen pel INDICATION: chest pain, RUQ abdominal pain COMPARISON: None. FINDINGS: CHEST: Lung parenchyma and airways: Mild septal thickening. Dependent scar/atelectasis. Granulomatous calcifications. 3 mm calcification in a superior segment right lower lobe bronchus, with distal tubular opacification. Remaining airways are clear. Calcified granulomas. Pleura: Unremarkable. Thoracic inlet, axillae and chest wall: No thyroid or soft tissue mass. Thoracic aorta: The ascending thoracic aorta is dilated to 4.0 cm. Mediastinum: Mildly dilated central pulmonary arteries as can be seen with pulmonary hypertension. Heart and pericardium: Enlarged heart. No pericardial effusion. RV/LV ratio less than 1. Coronary artery calcifications: . Thoracic bones: No acute osseous finding. Pulmonary arteries: Study quality: Exam limited by beam hardening and motion artifact limiting evaluation of segmental and subsegmental pulmonary arteries. No central pulmonary emboli detected. Small nonocclusive subsegmental emboli are suspected in the right upper lobe (image 79/239) and the right lower lobe image 123/239). ABDOMEN/PELVIS: Liver: Enlarged. No focal lesions detected. Biliary/Gallbladder: The gallbladder is distended with surrounding inflammatory stranding mild gallbladder wall edema. No bile duct dilation. Pancreas: No mass or duct dilation. Spleen: Normal. Adrenals: Normal right adrenal. 2.0 cm indeterminate density left adrenal mass. Kidneys: No suspicious mass, obstructing stone, or hydronephrosis. Excreted contrast in the renal calyces could obscure small calcifications. Simple right midpole cyst. Subcentimeter left renal hypodensities, too small to characterize but most likely represent cysts. GI tract: Small hiatal hernia. No small or large bowel dilation. Appendix not confidently visualized. Diverticulosis without diverticulitis. Mesentery/Peritoneum: Enlarged rachna hepatic and peripancreatic lymph nodes. Mild mesenteric edema with fat halos surrounding prominent mesenteric lymph nodes. Retroperitoneum: No mass. Pelvis: Normal urinary bladder. Mild prostatomegaly. Trace free pelvic fluid Soft Tissues: Small, fat-containing umbilical and bilateral inguinal hernias. Abdominopelvic bones: No acute osseous finding. IMPRESSION: Limited evaluation of segmental and subsegmental pulmonary arteries. No central embolus detected. Small subsegmental nonocclusive emboli are suspected in the right upper and lower lobes. This would represent a small clot burden. No CT evidence of right heart strain. 3 mm broncholith with distal mucoid impaction in the superior segment of the right lower lobe. Mild interstitial edema. Mild aortic ectasia. Cardiomegaly. Hepatomegaly. Acute cholecystitis. Fluid tracking along the common bile duct with mild duct hyperemia, presumably reactive, unless there are additional signs or symptoms of cholangitis. Rachna hepatic and peripancreatic lymphadenopathy. 2.0 cm indeterminate density left adrenal mass. Recommend nonemergent but timely outpatient adrenal CT. Mesenteric panniculitis. Review of Systems Review of Systems: All systems reviewed & are unremarkable except as noted in HPI and below Exam Narrative: GEN: Alert, oriented, not in distress. Room air saturation 95% HEENT: pupils are equal, EOMI, symmetrical face; oral membranes moist NECK: Trachea is midline CHEST: Equal air entry, symmetric excursion, clear breath sounds. CV: Regular S1S2 no m/g/r ABD : drain in RLQ. Extremities : no clubbing, cyanosis, or edema PSYCH: normal thought and speech. Objective Data Vital Signs Vital Signs: Vital Signs - 24 hr 05/22/25 16:15 05/22/25 19:23 05/22/25 19:38 Temperature 37.3 C 37.2 C Pulse Rate 96 106 H 103 H Respiratory Rate 20 17 23 H Blood Pressure 137/85 141/79 H 138/82 Pulse Oximetry 97 98 99 Oxygen Delivery Room Air Simple Face Mask Simple Face Mask Oxygen Flow Rate 8 8 05/22/25 19:53 05/22/25 20:08 05/22/25 20:30 Temperature 36.6 C 36.8 C Pulse Rate 97 97 95 Respiratory Rate 22 H 23 H 18 Blood Pressure 141/82 H 142/80 H 130/96 H Pulse Oximetry 95 94 95 Oxygen Delivery Nasal Cannula Nasal Cannula Oxygen Flow Rate 2 2 05/22/25 20:58 05/22/25 21:58 05/23/25 00:00 Temperature 36.9 C 37.0 C Pulse Rate 88 95 116 H Respiratory Rate 18 16 Blood Pressure 132/72 128/71 Pulse Oximetry 95 95 Oxygen Delivery Oxygen Flow Rate 05/23/25 00:37 05/23/25 04:00 05/23/25 05:58 Temperature 37.4 C 37.0 C Pulse Rate 100 93 98 Respiratory Rate 16 18 Blood Pressure 125/73 121/75 Pulse Oximetry 96 94 Oxygen Delivery Oxygen Flow Rate 05/23/25 08:04 05/23/25 08:35 05/23/25 09:58 Temperature 36.8 C Pulse Rate 122 H 86 Respiratory Rate 18 Blood Pressure 103/68 Pulse Oximetry 97 Oxygen Delivery Room Air Oxygen Flow Rate Intake/Output Intake/Output: Intake & Output 05/20/25 05/21/25 05/22/25 05/23/25 23:59 23:59 23:59 23:59 Intake Total 3110.1 1550 Output Total 30 50 Balance 3080.1 1500 Meds/Results Medications: Active Medications Generic Name Dose Route Start Last Admin Trade Name Freq PRN Reason Stop Dose Admin Acetaminophen 500 mg 05/22/25 20:13 05/23/25 04:57 Acetaminophen 500 Mg Tablet PO 500 mg Q6H PRN Administration Pain Rated 1-3 Brimonidine Tartrate 1 drop 05/22/25 21:00 05/23/25 08:25 Brimonidine Tartrate 0.2% Op Soln 5 Ml Btl EACH EYE 1 drop Q12H LANDRY Administration Enoxaparin Sodium 80 mg 05/23/25 21:00 Enoxaparin 80 Mg/0.8 Ml Syringe SUB-Q Q12H LANDRY Famotidine 20 mg 05/22/25 21:00 05/23/25 08:30 Famotidine 20 Mg/2 Ml Vial IV PUSH 20 mg Q12HR LANDRY Administration Hydrochlorothiazide 12.5 mg 05/23/25 09:00 05/23/25 08:30 Hydrochlorothiazide 12.5 Mg Capsule PO 12.5 mg DAILY LANDRY Administration Lactated Ringer's 1,000 mls @ 125 mls/hr 05/22/25 20:13 05/23/25 14:53 Lr - Lactated Ringers Iv IV CONT 125 mls/hr .Q8H LANDRY Administration Ibuprofen 800 mg in 200 mls @ 400 mls/hr 05/22/25 20:13 Caldolor 800 Mg/200 Ml IVPB Q6H PRN Breakthrough Pain Rated 1-3 or NPO Piperacillin Sod/Tazobactam 50 mls @ 100 mls/hr 05/23/25 00:00 05/23/25 11:57 Sod 3.375 gm/ Sodium Chloride IVPB Infused Q6H LANDRY Infusion Latanoprost 1 drop 05/23/25 20:35 Latanoprost 0.005% Op Soln 2.5 Ml Btl EACH EYE QPM LANDRY Losartan Potassium 50 mg 05/23/25 09:00 05/23/25 08:30 Losartan Potassium 50 Mg Tablet PO 50 mg DAILY LANDRY Administration Morphine Sulfate 1 mg 05/22/25 20:13 Morphine Sulfate (*Crx) 2 Mg/Ml Inj IV PUSH Q2H PRN Breakthrough Pain Rated 4-6 or NPO Morphine Sulfate 2 mg 05/22/25 20:13 Morphine Sulfate (*Crx) 4 Mg/Ml Inj IV PUSH Q2H PRN Breakthrough Pain Rated 7-10 or NPO Naloxone HCl 0.1 mg 05/22/25 20:13 Naloxone Hcl 0.4 Mg/Ml Vial IV PUSH Q2M PRN Opiate Reversal Ondansetron HCl 4 mg 05/22/25 20:13 Ondansetron Inj 4 Mg/2 Ml Vial IV PUSH Q4H PRN Nausea And Vomiting Oxycodone/Acetaminophen 1 tablet 05/22/25 20:13 05/23/25 14:52 Oxycodone/Acetaminophen (*Crx) 5-325 Mg Tablet PO 1 tablet Q4H PRN Administration Pain Rated 4-6 Timolol Maleate 1 drop 05/22/25 21:00 05/23/25 08:36 Timolol Maleate 0.5% Op Soln 5 Ml Bottle EACH EYE 1 drop Q12H LANDRY Administration Radiology Results: ITS Impressions Chest X-Ray 05/21/25 18:27 IMPRESSION: No acute cardiopulmonary process. Chest/Abdomen/Pelvis CTA 05/21/25 23:44 IMPRESSION: Limited evaluation of segmental and subsegmental pulmonary arteries. No central embolus detected. Small subsegmental nonocclusive emboli are suspected in the right upper and lower lobes. This would represent a small clot burden. No CT evidence of right heart strain. 3 mm broncholith with distal mucoid impaction in the superior segment of the right lower lobe. Mild interstitial edema. Mild aortic ectasia. Cardiomegaly. Hepatomegaly. Acute cholecystitis. Fluid tracking along the common bile duct with mild duct hyperemia, presumably reactive, unless there are additional signs or symptoms of cholangitis. Rachna hepatic and peripancreatic lymphadenopathy. 2.0 cm indeterminate density left adrenal mass. Recommend nonemergent but timely outpatient adrenal CT. Mesenteric panniculitis. Venous Doppler Study 05/22/25 09:55 IMPRESSION: Negative bilateral lower extremity venous US. No deep vein thrombosis. Abdomen Ultrasound 05/22/25 09:59 IMPRESSION: Cholelithiasis with highly suggestive cholecystitis. Clinical correlation advised. Otherwise, normal limited abdominal ultrasound. Hepatobiliary Scan Nuclear Medicine 05/22/25 12:46 Impression: Cystic duct obstruction.. Labs Labs: Laboratory Results - last 24 hr 05/23/25 05:19 WBC 18.1 H RBC 3.35 L Hgb 10.8 L Hct 32.4 L MCV 96.7 MCH 32.2 MCHC 33.3 RDW 14.5 Plt Count 301 MPV 10.3 Immature Gran % (Auto) 0.7 H Neut % (Auto) 81.6 H Lymph % (Auto) 6.0 L [place] % (Auto) 11.5 H Eos % (Auto) 0.1 Baso % (Auto) 0.1 L Lymph # (Auto) 1.08 [place] # (Auto) 2.1 H Eos # (Auto) 0.0 Baso # (Auto) 0.0 Abs Immat Gran (auto) 0.12 H Absolute Neuts (auto) 14.8 H Absolute Nucleated RBC 0.000 Nucleated RBC % 0.0 Sodium 134 L Potassium 3.3 L Chloride 102 Carbon Dioxide 26 Anion Gap 6 BUN 10 D Creatinine 0.72 Estim Creat Clear Calc 92 Estimated GFR > 60 Glucose 124 H Calcium 7.8 L Total Bilirubin 0.9 AST 81 H ALT 89 H Alkaline Phosphatase 60 C-Reactive Protein 25.3 H Total Protein 5.9 L Albumin 3.0 L
[2025-05-23] MEDS: LATANOPROST 0.005% OP SOLN 2.5 ML BTL 1 DROP EACH EYE (22:14)
[2025-05-23] MEDS: ENOXAPARIN 80 MG/0.8 ML SYRINGE SUB-Q (22:15)
[2025-05-24] MEDS: PIPERACILLIN/TAZOBACTAM SOD 3.375 GM in SODIUM CHLORIDE 0.9% IV 50 ML 100 ML IVPB ×4 (00:05→17:41)
[2025-05-24 05:57] LABS: Hematocrit 27.8 % (42.0-52.0); Hemoglobin 9.1 g/dL (14.0-18.0); Mean Corpuscular HGB Conc 32.7 g/dl (32-36); Mean Corpuscular Hemoglobin 31.9 pg (26-34); Mean Corpuscular Volume 97.5 fl (80-100); Platelet Count Result 267 k/mm3 (150-375); Red Blood Count 2.85 M/mm3 (4.6-6.20); White Blood Count 9.7 K/mm3 (4.5-10.0)
[2025-05-24 06:07] VITALS: BP 121/75; PULSE 95; RESP 18; TEMP 37; O2SAT 95
[2025-05-24 06:18] LABS: Anion Gap 1 mmol/L (4-12); Blood Urea Nitrogen 9 mg/dL (9-20); Calcium 7.9 mg/dL (8.4-10.2); Carbon Dioxide 30 mmol/L (22-30); Chloride 104 mmol/L (98-107); Estimated CRCL calculation 101 ml/min; Estimated Glomerular Filt Rate > 60; Glucose 87 mg/dL (65-110); Potassium 3.3 mmol/L (3.4-5.0); Sodium 135 mmol/L (137-145)
[2025-05-24] MEDS: LACTATED RINGERS 1,000 ML 125 ML IV CONT (07:02)
[2025-05-24 07:41] VITALS: O2SAT 95
[2025-05-24] MEDS: LOSARTAN POTASSIUM 50 MG TABLET PO (09:02)
[2025-05-24] MEDS: FAMOTIDINE 20 MG/2 ML VIAL IV PUSH (09:02)
[2025-05-24] MEDS: TIMOLOL MALEATE 0.5% OP SOLN 5 ML BOTTLE 1 DROP EACH EYE ×2 (09:03→17:41)
[2025-05-24] MEDS: BRIMONIDINE TARTRATE 0.2% OP SOLN 5 ML BTL 1 DROP EACH EYE ×2 (09:03→17:41)
--- NOTE | 2025-05-24 10:27 | PM.IMPN ---
Progress Note: A&P Assessment and Plan (1) Broncholithiasis: Code(s): J98.09 - Other diseases of bronchus, not elsewhere classified Status: Acute (2) Acute cholecystitis: Code(s): K81.0 - Acute cholecystitis Status: Deleted (3) Pulmonary embolism: Qualifiers: Pulmonary embolism type: multiple subsegmental (without acute cor pulmonale) Qualified Code(s): I26.94 - Multiple subsegmental thrombotic pulmonary emboli without acute cor pulmonale Code(s): I26.99 - Other pulmonary embolism without acute cor pulmonale Status: Acute (4) Sepsis: Code(s): A41.9 - Sepsis, unspecified organism Status: Acute Plan Acute PE: CT concerning for subsegmental PE. D Dimer elevated lower ext neg for DVT. Had tachypnea but not tachycardia on lovenox. will hold of Lovenox this morning with drop in Hb, Will recheck Hb in the afternoon. ECHO unremarkable pulmonary team on board Acute cholecystitis S/P laparoscopic cholecystectomy and drain placement 05/23/25 CT abd concerning for acute cholecystitis. US showed Cholelithiasis with highly suggestive cholecystitis HIDA scan showed Cystic duct obstruction. Acute anemia possible dilutional vs bleeding in setting of being on Lovenox will Dc IVF will hold of Lovenox this morning with drop in Hb, Will recheck Hb in the afternoon. monitor H&h transfuse if Hb less than 7 Chest pain resolved troponin was neg. EKG neg for acute changes ECHO unremarkable Continue to monitor possible sepsis in setting of cholecystitis tachypnea and leucocytosis Leucocytosis improved continue Zosyn follow culture results Hypokalemia will give po potassium Subjective Date/time seen: 05/24/25 10:27 Interval history: per HPi: Patient is 64 y male presented to the Er with chest pain yesterday, about one hour later moved to the [facility] abd. patient notes the pain was doll getting worse with taking deep breath. denies any fever, chills, SOB, N/V. In the Er vital signs were stable, no fever, no tachycardia. had some tachypnea. Lab tests showed WBC 13.3-->18.8, troponin was neg. D Dimer was mildly elevated. CTA concerning for subsegmental PE. lower ext neg for DVT. CT abd concerning for acute cholecystitis. Surgery and pulmonary team were consulted and patient was admitted for further management. US showed Cholelithiasis with highly suggestive cholecystitis HIDA scan showed Cystic duct obstruction 05/23/25 Patient was seen and examined at bedside. he is feeling fine. has some soreness on his abd. underwent laparoscopic cholecystectomy and drain placement yesterday. continue IV Abx. follow culture results. continue to monitor. will continue Lovenox for PE 05/24/25 Patient was seen and examined at bedside. he is feeling better. his abd pain improving. denies any chest pain, Sob. No acute event over night. will hold of Lovenox this morning with drop in Hb, Will recheck Hb in the afternoon. Will Dc IVF Review of Systems Review of Systems: All systems reviewed & are unremarkable except as noted in HPI and below Constitutional: Constitutional: Reports no additional constitutional complaints Eyes: Eyes: Reports no additional eye complaints ENT: Reports system reviewed and no additional complaints, except as documented Cardiovascular: Cardiovascular: Reports no additional cardiovascular complaints Respiratory: Respiratory: Reports no additional respiratory complaints Gastrointestinal: Gastrointestinal: Reports no additional gastrointestinal complaints Musculoskeletal: Musculoskeletal: Reports no additional musculoskeletal complaints Neurologic: Reports system reviewed and no additional complaints, except as documented Psychiatric: Psychiatric: Reports no additional psychiatric complaints Endocrine: Endocrine: Reports no additional endocrine complaints Hematologic/Lymphatic: Hematologic/Lymphatic: Reports no additional hematologic/lymphatic complaints Allergic/Immunologic: Allergic/Immunologic: Reports no additional allergic/immunologic complaints Exam Narrative: GENERAL: Well appearing, well-nourished, non-toxic, in no acute distress. HEAD: Normocephalic, atraumatic. NECK: Supple. No adenopathy, no masses. RESPIRATORY: Airway patent, respirations nonlabored. Clear to auscultation bilaterally, no rales, rhonchi, wheezing. CARDIOVASCULAR: Regular rate and rhythm without murmurs, rubs, or gallops. Peripheral pulses 2+ and equal bilaterally. ABDOMINAL: Soft, RUQ drain, nondistended, no hepatosplenomegaly. Normoactive BS, + Avalos's test MUSCULOSKELETAL: Moves all extremities. Strength/ROM intact without gross deformities. SKIN: Warm, dry, normal color. No rashes. NEURO: A&O X3. Speech clear. Cranial nerves II-XII intact. No ataxic movements. PSYCHIATRIC: Appropriate mood and affect. Normal interaction. Const: General: cooperative, healthy appearing, comfortable and no acute distress Orientation/consciousness: oriented to person, oriented to place and oriented to time HENMT: Head: normal to inspection Ears: hearing grossly normal bilaterally Eyes: General: appearance normal, both eyes and all related structures Neck: Neck: normal visual inspection Chest: Chest palpation & inspection: normal inspection of the chest Other: No tenderness to palpation in the right lower ribcage. Resp: Effort & Inspection: normal respiratory effort and able to speak in complete sentences Auscultation: no crackles, no rales, no rhonchi, no wheezes and lung sounds not diminished Cardio: Jugular venous distension: no JVD Rate: regular rate GI: Inspection: normal to inspection and non-distended Other: Right upper quadrant tenderness improving. has jose eduardo. Skin: General skin exam: normal color and no rashes or lesions noted Neuro: General: oriented to person, oriented to place and oriented to time Speech: normal speech Sensory Exam: normal sensation Extrem: General: normal to inspection and no edema Psych: Appearance: grossly normal Mental Status: mental status grossly normal Objective Data Vital Signs Vital Signs: Vital Signs - 24 hr 05/23/25 13:58 05/23/25 17:58 05/23/25 20:00 Temperature 98.0 F 97.7 F Pulse Rate 92 90 Respiratory Rate 18 18 Blood Pressure 101/58 L 100/61 Pulse Oximetry 94 95 Oxygen Delivery Room Air 05/23/25 21:58 05/24/25 06:07 05/24/25 07:41 Temperature 98.2 F 98.6 F Pulse Rate 84 95 Respiratory Rate 20 18 Blood Pressure 112/68 121/75 Pulse Oximetry 95 95 95 Oxygen Delivery Room Air 05/24/25 09:09 Temperature Pulse Rate Respiratory Rate Blood Pressure Pulse Oximetry Oxygen Delivery Room Air Intake/Output Intake/Output: Intake & Output 05/21/25 05/22/25 05/23/25 05/24/25 23:59 23:59 23:59 23:59 Intake Total 3110.1 2840 1690 Output Total 30 80 650 Balance 3080.1 2760 1040 Meds/Results Medications: Active Medications Generic Name Dose Route Start Last Admin Trade Name Freq PRN Reason Stop Dose Admin Acetaminophen 500 mg 05/22/25 20:13 05/23/25 22:26 Acetaminophen 500 Mg Tablet PO 500 mg Q6H PRN Administration Pain Rated 1-3 Brimonidine Tartrate 1 drop 07/19/25 17:10 05/24/25 09:03 Brimonidine Tartrate 0.2% Op Soln 5 Ml Btl EACH EYE 1 drop BID LANDRY Administration Enoxaparin Sodium 80 mg 05/23/25 21:00 05/24/25 09:00 Enoxaparin 80 Mg/0.8 Ml Syringe SUB-Q Not Given Q12H LANDRY Famotidine 20 mg 05/22/25 21:00 05/24/25 09:02 Famotidine 20 Mg/2 Ml Vial IV PUSH 20 mg Q12HR LANDRY Administration Hydrochlorothiazide 12.5 mg 05/23/25 09:00 05/24/25 09:02 Hydrochlorothiazide 12.5 Mg Capsule PO 12.5 mg DAILY [facility] Administration Ibuprofen 800 mg in 200 mls @ 400 mls/hr 05/22/25 20:13 Caldolor 800 Mg/200 Ml IVPB Q6H PRN Breakthrough Pain Rated 1-3 or NPO Piperacillin Sod/Tazobactam 50 mls @ 100 mls/hr 05/23/25 00:00 05/24/25 06:48 Sod 3.375 gm/ Sodium Chloride IVPB Infused Q6H [facility] Infusion Latanoprost 1 drop 05/23/25 20:35 05/23/25 22:14 Latanoprost 0.005% Op Soln 2.5 Ml Btl EACH EYE 1 drop QPM LANDRY Administration Losartan Potassium 50 mg 05/23/25 09:00 05/24/25 09:02 Losartan Potassium 50 Mg Tablet PO 50 mg DAILY LANDRY Administration Morphine Sulfate 1 mg 05/22/25 20:13 Morphine Sulfate (*Crx) 2 Mg/Ml Inj IV PUSH Q2H PRN Breakthrough Pain Rated 4-6 or NPO Morphine Sulfate 2 mg 05/22/25 20:13 Morphine Sulfate (*Crx) 4 Mg/Ml Inj IV PUSH Q2H PRN Breakthrough Pain Rated 7-10 or NPO Naloxone HCl 0.1 mg 05/22/25 20:13 Naloxone Hcl 0.4 Mg/Ml Vial IV PUSH Q2M PRN Opiate Reversal Ondansetron HCl 4 mg 05/22/25 20:13 Ondansetron Inj 4 Mg/2 Ml Vial IV PUSH Q4H PRN Nausea And Vomiting Oxycodone/Acetaminophen 1 tablet 05/22/25 20:13 05/23/25 14:52 Oxycodone/Acetaminophen (*Crx) 5-325 Mg Tablet PO 1 tablet Q4H PRN Administration Pain Rated 4-6 Timolol Maleate 1 drop 05/23/25 17:10 05/24/25 09:03 Timolol Maleate 0.5% Op Soln 5 Ml Bottle EACH EYE 1 drop BID LANDRY Administration Radiology Results: ITS Impressions Chest X-Ray 05/21/25 18:27 IMPRESSION: No acute cardiopulmonary process. Chest/Abdomen/Pelvis CTA 05/21/25 23:44 IMPRESSION: Limited evaluation of segmental and subsegmental pulmonary arteries. No central embolus detected. Small subsegmental nonocclusive emboli are suspected in the right upper and lower lobes. This would represent a small clot burden. No CT evidence of right heart strain. 3 mm broncholith with distal mucoid impaction in the superior segment of the right lower lobe. Mild interstitial edema. Mild aortic ectasia. Cardiomegaly. Hepatomegaly. Acute cholecystitis. Fluid tracking along the common bile duct with mild duct hyperemia, presumably reactive, unless there are additional signs or symptoms of cholangitis. Biju hepatic and peripancreatic lymphadenopathy. 2.0 cm indeterminate density left adrenal mass. Recommend nonemergent but timely outpatient adrenal CT. Mesenteric panniculitis. Venous Doppler Study 05/22/25 09:55 IMPRESSION: Negative bilateral lower extremity venous US. No deep vein thrombosis. Abdomen Ultrasound 05/22/25 09:59 IMPRESSION: Cholelithiasis with highly suggestive cholecystitis. Clinical correlation advised. Otherwise, normal limited abdominal ultrasound. Hepatobiliary Scan Nuclear Medicine 05/22/25 12:46 Impression: Cystic duct obstruction.. Labs Labs: Laboratory Results - last 24 hr 05/24/25 05:06 WBC 9.7 RBC 2.85 L Hgb 9.1 L Hct 27.8 L MCV 97.5 MCH 31.9 MCHC 32.7 RDW 14.5 Plt Count 267 MPV 10.1 Sodium 135 L Potassium 3.3 L Chloride 104 Carbon Dioxide 30 Anion Gap 1 L BUN 9 Creatinine 0.65 L Estim Creat Clear Calc 101 Estimated GFR > 60 Glucose 87 Calcium 7.9 L
--- NOTE | 2025-05-24 11:13 | PM.PNGS ---
Progress Note: A&P Assessment and Plan (1) S/P laparoscopic cholecystectomy: Code(s): Z90.49 - Acquired absence of other specified parts of digestive tract Status: Acute Assessment and Plan: Continues to do well. Taking only Tylenol for pain. Able to ambulate. Tolerated low-fat diet only fair as he did not like the food. Will go ahead and advance him to a regular diet. Unless his condition worsens, okay to discharge tomorrow from my perspective. Will plan to discharge on Augmentin 875 p.o. b.i.d. for another 5 days. He will also have his drain left in place with plans for me to see him on 05/28/2025. Continue IV antibiotics another 24 hours. (2) Cholelithiasis and acute cholecystitis with obstruction: Code(s): K80.01 - Calculus of gallbladder with acute cholecystitis with obstruction Status: Chronic Assessment and Plan: Severe. No evidence of postsurgical complications at this point (3) Acute gangrenous cholecystitis: Code(s): K81.0 - Acute cholecystitis Status: Acute (4) Pulmonary embolism: Qualifiers: Pulmonary embolism type: multiple subsegmental (without acute cor pulmonale) Qualified Code(s): I26.94 - Multiple subsegmental thrombotic pulmonary emboli without acute cor pulmonale Code(s): I26.99 - Other pulmonary embolism without acute cor pulmonale Status: Acute Assessment and Plan: Pulmonology note describes several diagnoses but does not indicate whether anticoagulation is needed or not. Initial consultation suggested anticoagulation for 3 months. Plan per hospitalist and pulmonology. (5) Chronic anticoagulation: Code(s): Z79.01 - intermediate (current) use of anticoagulants Status: Acute Assessment and Plan: Patient started on therapeutic dose of Lovenox last night. I was not aware of this but patient does not seem to have suffered any bleeding as a consequence. H&H did decrease but this is probably dilutional. (6) Anemia: Qualifiers: Other causes of anemia: acute posthemorrhagic Code(s): D64.9 - Anemia, unspecified Status: Acute Assessment and Plan: H&H decreased each day following surgery. Anticoagulation started last night. Decreased H&H today is probably due to dilutional effects rather than bleeding. Will monitor. Subjective Subjective Date/Time Seen: 05/24/25 11:13 Post Op day: 2 Patient reports: no new complaints, pain is less, tolerating a regular diet, voiding w/o difficulty, flatus, no bowel movement and afebrile Exam Const: General: comfortable, no acute distress, alert and awake Orientation/consciousness: patient oriented x3 GI: Inspection: no abdominal wall ecchymosis, non-distended, incision (healing well, SIMON serosanguinous) and no scars GI Palp: Yes Soft to palpation, Yes Tenderness to palpation present (GI) (drain site and RUQ), No Hernia present and No Palpable mass present Neuro: General: patient oriented x3 and no focal motor deficits Extrem: General: no calf tenderness and no edema Psych: Affect: normal affect Insight: Good insight present (Psych) Judgement: Good judgement present (Psych) Objective Data Vital Signs Vital Signs: Vital Signs - 24 hr 05/23/25 13:58 05/23/25 17:58 05/23/25 20:00 Temperature 36.7 C 36.5 C Pulse Rate 92 90 Respiratory Rate 18 18 Blood Pressure 101/58 L 100/61 Pulse Oximetry 94 95 Oxygen Delivery Room Air 05/23/25 21:58 05/24/25 06:07 05/24/25 07:41 Temperature 36.8 C 37.0 C Pulse Rate 84 95 Respiratory Rate 20 18 Blood Pressure 112/68 121/75 Pulse Oximetry 95 95 95 Oxygen Delivery Room Air 05/24/25 09:09 Temperature Pulse Rate Respiratory Rate Blood Pressure Pulse Oximetry Oxygen Delivery Room Air Intake/Output Intake/Output: Intake & Output 05/21/25 05/22/25 05/23/25 05/24/25 23:59 23:59 23:59 23:59 Intake Total 3110.1 2840 1690 Output Total 30 80 650 Balance 3080.1 2760 1040 Meds/Results Medications: Active Medications Generic Name Dose Route Start Last Admin Trade Name Freq PRN Reason Stop Dose Admin Acetaminophen 500 mg 05/22/25 20:13 05/23/25 22:26 Acetaminophen 500 Mg Tablet PO 500 mg Q6H PRN Administration Pain Rated 1-3 Brimonidine Tartrate 1 drop 05/23/25 17:10 05/24/25 09:03 Brimonidine Tartrate 0.2% Op Soln 5 Ml Btl EACH EYE 1 drop BID LANDRY Administration Enoxaparin Sodium 80 mg 05/23/25 21:00 05/24/25 09:00 Enoxaparin 80 Mg/0.8 Ml Syringe SUB-Q Not Given Q12H [facility] Famotidine 20 mg 05/24/25 21:00 Famotidine 20 Mg Tablet PO Q12HR [facility] Hydrochlorothiazide 12.5 mg 05/23/25 09:00 05/24/25 09:02 Hydrochlorothiazide 12.5 Mg Capsule PO 12.5 mg DAILY [facility] Administration Piperacillin Sod/Tazobactam 50 mls @ 100 mls/hr 05/23/25 00:00 05/24/25 06:48 Sod 3.375 gm/ Sodium Chloride IVPB Infused Q6H [facility] Infusion Latanoprost 1 drop 05/23/25 20:35 05/23/25 22:14 Latanoprost 0.005% Op Soln 2.5 Ml Btl EACH EYE 1 drop QPM LANDRY Administration Losartan Potassium 50 mg 05/23/25 09:00 05/24/25 09:02 Losartan Potassium 50 Mg Tablet PO 50 mg DAILY LANDRY Administration Morphine Sulfate 1 mg 05/22/25 20:13 Morphine Sulfate (*Crx) 2 Mg/Ml Inj IV PUSH Q2H PRN Breakthrough Pain Rated 4-6 or NPO Morphine Sulfate 2 mg 05/22/25 20:13 Morphine Sulfate (*Crx) 4 Mg/Ml Inj IV PUSH Q2H PRN Breakthrough Pain Rated 7-10 or NPO Naloxone HCl 0.1 mg 05/22/25 20:13 Naloxone Hcl 0.4 Mg/Ml Vial IV PUSH Q2M PRN Opiate Reversal Ondansetron HCl 4 mg 05/22/25 20:13 Ondansetron Inj 4 Mg/2 Ml Vial IV PUSH Q4H PRN Nausea And Vomiting Oxycodone/Acetaminophen 1 tablet 05/22/25 20:13 05/23/25 14:52 Oxycodone/Acetaminophen (*Crx) 5-325 Mg Tablet PO 1 tablet Q4H PRN Administration Pain Rated 4-6 Timolol Maleate 1 drop 05/23/25 17:10 05/24/25 09:03 Timolol Maleate 0.5% Op Soln 5 Ml Bottle EACH EYE 1 drop BID LANDRY Administration Radiology Results: ITS Impressions Chest X-Ray 05/21/25 18:27 IMPRESSION: No acute cardiopulmonary process. Chest/Abdomen/Pelvis CTA 05/21/25 23:44 IMPRESSION: Limited evaluation of segmental and subsegmental pulmonary arteries. No central embolus detected. Small subsegmental nonocclusive emboli are suspected in the right upper and lower lobes. This would represent a small clot burden. No CT evidence of right heart strain. 3 mm broncholith with distal mucoid impaction in the superior segment of the right lower lobe. Mild interstitial edema. Mild aortic ectasia. Cardiomegaly. Hepatomegaly. Acute cholecystitis. Fluid tracking along the common bile duct with mild duct hyperemia, presumably reactive, unless there are additional signs or symptoms of cholangitis. Biju hepatic and peripancreatic lymphadenopathy. 2.0 cm indeterminate density left adrenal mass. Recommend nonemergent but timely outpatient adrenal CT. Mesenteric panniculitis. Venous Doppler Study 05/22/25 09:55 IMPRESSION: Negative bilateral lower extremity venous US. No deep vein thrombosis. Abdomen Ultrasound 05/22/25 09:59 IMPRESSION: Cholelithiasis with highly suggestive cholecystitis. Clinical correlation advised. Otherwise, normal limited abdominal ultrasound. Hepatobiliary Scan Nuclear Medicine 05/22/25 12:46 Impression: Cystic duct obstruction.. Labs Labs: Laboratory Results - last 24 hr 05/24/25 05:06 WBC 9.7 RBC 2.85 L Hgb 9.1 L Hct 27.8 L MCV 97.5 MCH 31.9 MCHC 32.7 RDW 14.5 Plt Count 267 MPV 10.1 Sodium 135 L Potassium 3.3 L Chloride 104 Carbon Dioxide 30 Anion Gap 1 L BUN 9 Creatinine 0.65 L Estim Creat Clear Calc 101 Estimated GFR > 60 Glucose 87 Calcium 7.9 L
[2025-05-24] MEDS: POTASSIUM CHLORIDE 20 MEQ ER TABLET PO ×2 (12:35→17:41)
[2025-05-24 14:00] VITALS: BP 112/61; PULSE 78; RESP 16; TEMP 36.8; O2SAT 98
[2025-05-24 16:09] LABS: Hematocrit 31.3 % (42.0-52.0); Hemoglobin 10.0 g/dL (14.0-18.0)
[2025-05-24] MEDS: LATANOPROST 0.005% OP SOLN 2.5 ML BTL 1 DROP EACH EYE ×2 (17:41→21:58)
[2025-05-24] MEDS: ACETAMINOPHEN 500 MG TABLET PO (17:51)
--- NOTE | 2025-05-24 18:36 | PM.PNPUL ---
Progress Note: A&P Assessment and Plan (1) Pulmonary embolism: Qualifiers: Pulmonary embolism type: multiple subsegmental (without acute cor pulmonale) Qualified Code(s): I26.94 - Multiple subsegmental thrombotic pulmonary emboli without acute cor pulmonale Code(s): I26.99 - Other pulmonary embolism without acute cor pulmonale Status: Acute Assessment and Plan: Patient with no prior history of DVT or PE, status post left knee replacement 2016. Presents with anterior upper chest dull pain with no other associated respiratory symptoms. On admission he had a Well's score of 0, leukocytosis of 13.3, normal LFTs, BNP 85, troponins negative x2 a D-dimer positive at 0.64. CT angiogram of the chest was limited by beam hardening and motion artifact demonstrated small nonocclusive subsegmental PE right upper lobe and right lower lobe with no right heart strain. There is a 3 mm broncholith with distal mucus impaction in the superior segment of the right lower lobe. There was a calcified granuloma in the left lower lobe. CT abdomen was consistent with acute cholecystitis. Patient was started on IV heparin, given ceftriaxone and Flagyl. Lower extremity Dopplers negative for DVT. Abdominal ultrasound with cholelithiasis with highly suggestive cholecystitis. I reviewed the CT angiogram of the chest with another radiologist who felt that this study was not definitive for PE and if PE was present this represented a very small clot burden. 05/22/2025: Currently the patient tells me he sweated once today but denies fever, chills, rigors. he denies shortness of breath at rest, dyspnea on exertion, cough, phlegm, hemoptysis or dull chest pain. When he takes a deep breath or cough he has right lower rib pain and right upper quadrant pain that appears pleuritic in nature. He denies any leg swelling. recent plane trips, recent car trips, recent chest or leg trauma. He is afebrile. room air saturation 94%. White blood cell count 18.8. 05/23/2025; echo was normal. EF 65-70%, and no RV strain. He is going to be on systemic anticoagulation for at least 3 months. He understands the benefits and risks (bleeding complications) from anticoagulation. He is on enoxaparin 80 mg sub-cut Q 12 hours post op. Can switch to oral DOAC -direct oral anticoagulant tomorrow. This may be determine by what his insurance will cover. 05/24/25; discussion with patient and his , Magaly. He felt 80% better the night after his surgery. He has no pulmonary symptoms, can use IS with over 2 L capacity, had a shower and is not short of breath. He is not coughing. We discussed starting direct anti-coagulant for possible small PE without hemodynamic compromise vs not starting any DOAC, assuming that the CT was overinterpreted. The risk of a pulmonary embolus appears lower now given the nature of the complicated gall bladder situation with gangrene and cholecystitis. He is physically active, is re-modeling his son's house. He is not going to avoid being on a ladder or performing other activities that he usually performs in order to take Eliquis for 3 months. I told him to return immediately if he has any symptoms that remotely resemble a pulmonary embolus. His echo was normal. He agrees with this plan. asked if there is benefit to repeating CT scan in a week. I do not think that there is a good reason to repeat it. If he has not PE on a repeat CTA, it might mean that his treatment with anticoagulants for several days may have cleared it. If he has a repeat CTA and has a small PE, he would then start anticoagulants. This may be a problem with insurance coverage. We can discuss again tomorrow. At this time, no anticoagulant planned for 3 months which was the initial plan before his surgery. (2) Broncholithiasis: Code(s): J98.09 - Other diseases of bronchus, not elsewhere classified Status: Acute Assessment and Plan: Patient has broncholith in the superior segment of the right lower lobe with small area of mucoid impaction and distal bronchiectasis. Patient does not have recurrent bronchitis or infectious pulmonary complaints. At this time no further follow up required. Subjective Date/time seen: 05/24/25 18:36 Interval history: 66-year-old with a history of hypertension, glaucoma, COVID 10/2020 and made a complete recovery, s/p left knee replacement for arthritis in 2017. Patient denies a history of childhood asthma, COPD, recurrent bronchial infections, and has no respiratory limitations in his activities of daily living. At baseline he can walk an unlimited distance. He does not have, it chronic cough, phlegm or hemoptysis. Patient is a never smoker, was exposed to secondhand smoke from his mother but none since. Patient worked at [employer] throughout his entire career. 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 Patient has no known history of blood clots and no history of blood clots in the family. patient was in his usual state of health and the evening of 05/18/2025 he took 2 mg of Ativan in anticipation of deep cavity and crown placement on 05/19/2025. On 05/19/2025 the patient woke up in his usual state of health and took 2 mg of Ativan and had his dental procedure performed without complications. He walked to the car after that and had no respiratory issues. Patient slept until 230 in the afternoon and then his woke him up and he walked to the couch but he remained very sleepy. Patient went to bed at 5:30 a.m. at that time had no respiratory symptoms. Patient slept until 730 in the morning. On 05/20/2024 patient woke up at 7:30 a.m. was walking, had no respiratory issues, felt a little groggy or loopy. He drove to his son house and work done carpentry projects until 3:00 p.m. and came home and felt exhausted. He ate dinner. The states that his groggy and loopy mental status were better. Patient had no respiratory issues and went to bed. 05/21/2025 patient woke up with completely normal mental status. He noticed dull bilateral anterior chest pain rated at a score of 2 to 3/10. He had no other respiratory issues went to his son's house to perform carpentry. His temporary crown fell off and he went to the dentist. He then drove home. his dull anterior chest pain had resolved. At approximately 5:00 p.m. He developed some right-sided Pleuritic pain located in the lower ribcage and right upper quadrant. He vomited once. 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 He cut the grass with no respiratory issues and then had another episode of vomiting. He presented to the emergency department about 6:00 p.m. As a right lower rib pain and right upper quadrant pain intensified.. In the emergency department he complained of chest pain that had resolved and now complained of right upper abdominal pain. His blood pressure is 126/83, heart rate 69, respirations 16 and his room air saturations were 96%. His Wells criteria score was 0. His white blood cell count was 13.3, his creatinine was 0.76, his BNP was 85, his troponins were negative x2, his alk-phos was 53, his AST was 5028, ALT was 16. His D-dimer was positive at 0.64, TSH was 0.971. CT angiogram chest abdomen pelvis was limited by beam hardening and motion artifact demonstrated small nonocclusive subsegmental PE right upper lobe and right lower lobe with no right heart strain. There is a 3 mm broncholith with distal mucus impaction in the superior segment of the right lower lobe. There was a calcified granuloma in the left lower lobe. CT abdomen was consistent with acute cholecystitis. Patient was started on IV heparin, given ceftriaxone and Flagyl. 05/22/2025: Currently the patient tells me he sweated once today but denies fever, chills, rigors. he denies shortness of breath at rest, dyspnea on exertion, cough, phlegm, hemoptysis or dull chest pain. When he takes a deep breath or cough he has right lower rib pain and right upper quadrant pain that appears pleuritic in nature. He denies any leg swelling. recent plane trips, recent car trips, recent chest or leg trauma. He is afebrile. room air saturation 94%. White blood cell count 18.8. Lower extremity Dopplers negative for DVT. Abdominal ultrasound with cholelithiasis with highly suggestive cholecystitis. I reviewed the CT angiogram of the chest with another radiologist who felt that this study was not definitive for PE and if they were present this represented day a very small clot burden. 05/23/2025: He is seen in Room 342 for follow up for possible PE with negative lower extremity Doppler. He is on room air, saturation 95-97%, feels tired, exhausted from the surgery however he is not having shortness of breath. All of his chest symptoms have resolved. He is not coughing, has no sputum. He is using his spirometer, can inhale > 1 liter. 05/24/25; no shortness of breath. Had a shower, walked around room breathing room air. Magaly is at the bedside. Pt can use IX to inhale to 2 L. He feels restored to his pre-operative pulmonary status. His enoxaparin was held because his H/H dropped a little, went from 10.8/32.4% yesterday to 9.1/27.8% today, on recheck was 10/31.3%. This is equilibration due to blood loss and fluid administration. He is stable, discussed not re-starting any anticoagulation as he risk of PE appears to be less than what we thought initially. His pleuritic pain was from his infected gall bladder. Sat is 95-98% on room air. Data: 05/22/25: Limited ABDOMINAL ULTRASOUND (Doppler ultrasound interrogation techniques used as needed for this exam.) Ordering provider: Bhavin Sampson History: . RUQ pain . Comparison: None. FINDINGS: PANCREAS: Not visualized. PORTAL VEIN: Hepatopedal flow demonstrated. LIVER: Partially obscured by bowel gas. Normal size and echotexture. No focal hepatic lesions. Minimal Perihepatic fluid collections identified anteriorly. BILIARY DUCTS: No intra or extrahepatic biliary dilation. Common bile duct measures 4.7 mm in diameter which is normal for patient's age. GALLBLADDER: Stone is seen in the neck of the gallbladder measuring 2.1 cm. Sludge, gallbladder wall thickening and pericholecystic fluid are noted. Wall thickness is 5 mm. Negative sonographic Avalos's sign. FREE FLUID: None visualized within the upper abdomen. IMPRESSION: Cholelithiasis with highly suggestive cholecystitis. Clinical correlation advised. Otherwise, normal limited abdominal ultrasound. 05/22/25: BILATERAL LOWER EXTREMITY VENOUS ULTRASOUND Ordering provider: Bhavin Sampson MD History: . eval for DVT . Comparison: None. FINDINGS: RIGHT LOWER EXTREMITY VEINS: --COMMON FEMORAL: Patent and free of thrombus. Normal compressibility, phasic flow and augmentation. --PROXIMAL SUPERFICIAL FEMORAL: Patent and free of thrombus. Normal compressibility, phasic flow and augmentation. --DISTAL SUPERFICIAL FEMORAL: Patent and free of thrombus. Normal compressibility, phasic flow and augmentation. --POPLITEAL: Patent and free of thrombus. Normal compressibility, phasic flow and augmentation. --POSTERIOR TIBIAL: Patent and free of thrombus. Normal compressibility, phasic flow and augmentation. LEFT LOWER EXTREMITY VEINS: --COMMON FEMORAL: Patent and free of thrombus. Normal compressibility, phasic flow and augmentation. --PROXIMAL SUPERFICIAL FEMORAL: Patent and free of thrombus. Normal compressibility, phasic flow and augmentation. --DISTAL SUPERFICIAL FEMORAL: Patent and free of thrombus. Normal compressibility, phasic flow and augmentation. --POPLITEAL: Patent and free of thrombus. Normal compressibility, phasic flow and augmentation. --POSTERIOR TIBIAL: Patent and free of thrombus. Normal compressibility, phasic flow and augmentation. IMPRESSION: Negative bilateral lower extremity venous US. No deep vein thrombosis. 05/21/25; EXAMINATION: CTA chest PE abdomen pel INDICATION: chest pain, RUQ abdominal pain COMPARISON: None. FINDINGS: CHEST: Lung parenchyma and airways: Mild septal thickening. Dependent scar/atelectasis. Granulomatous calcifications. 3 mm calcification in a superior segment right lower lobe bronchus, with distal tubular opacification. Remaining airways are clear. Calcified granulomas. Pleura: Unremarkable. Thoracic inlet, axillae and chest wall: No thyroid or soft tissue mass. Thoracic aorta: The ascending thoracic aorta is dilated to 4.0 cm. Mediastinum: Mildly dilated central pulmonary arteries as can be seen with pulmonary hypertension. Heart and pericardium: Enlarged heart. No pericardial effusion. RV/LV ratio less than 1. Coronary artery calcifications: . Thoracic bones: No acute osseous finding. Pulmonary arteries: Study quality: Exam limited by beam hardening and motion artifact limiting evaluation of segmental and subsegmental pulmonary arteries. No central pulmonary emboli detected. Small nonocclusive subsegmental emboli are suspected in the right upper lobe (image 79/239) and the right lower lobe image 123/239). ABDOMEN/PELVIS: Liver: Enlarged. No focal lesions detected. Biliary/Gallbladder: The gallbladder is distended with surrounding inflammatory stranding mild gallbladder wall edema. No bile duct dilation. Pancreas: No mass or duct dilation. Spleen: Normal. Adrenals: Normal right adrenal. 2.0 cm indeterminate density left adrenal mass. Kidneys: No suspicious mass, obstructing stone, or hydronephrosis. Excreted contrast in the renal calyces could obscure small calcifications. Simple right midpole cyst. Subcentimeter left renal hypodensities, too small to characterize but most likely represent cysts. GI tract: Small hiatal hernia. No small or large bowel dilation. Appendix not confidently visualized. Diverticulosis without diverticulitis. Mesentery/Peritoneum: Enlarged rachna hepatic and peripancreatic lymph nodes. Mild mesenteric edema with fat halos surrounding prominent mesenteric lymph nodes. Retroperitoneum: No mass. Pelvis: Normal urinary bladder. Mild prostatomegaly. Trace free pelvic fluid Soft Tissues: Small, fat-containing umbilical and bilateral inguinal hernias. Abdominopelvic bones: No acute osseous finding. IMPRESSION: Limited evaluation of segmental and subsegmental pulmonary arteries. No central embolus detected. Small subsegmental nonocclusive emboli are suspected in the right upper and lower lobes. This would represent a small clot burden. No CT evidence of right heart strain. 3 mm broncholith with distal mucoid impaction in the superior segment of the right lower lobe. Mild interstitial edema. Mild aortic ectasia. Cardiomegaly. Hepatomegaly. Acute cholecystitis. Fluid tracking along the common bile duct with mild duct hyperemia, presumably reactive, unless there are additional signs or symptoms of cholangitis. Rachna hepatic and peripancreatic lymphadenopathy. 2.0 cm indeterminate density left adrenal mass. Recommend nonemergent but timely outpatient adrenal CT. Mesenteric panniculitis. Review of Systems Review of Systems: All systems reviewed & are unremarkable except as noted in HPI and below Exam Narrative: GEN: Alert, oriented, not in distress. Room air saturation 98% HEENT: pupils are equal, EOMI, symmetrical face; oral membranes moist NECK: Trachea is midline CHEST: Equal air entry, symmetric excursion, clear breath sounds. CV: Regular S1S2 no m/g/r Extremities : no clubbing, cyanosis, or edema PSYCH: normal thought and speech. Objective Data Vital Signs Vital Signs: Vital Signs - 24 hr 05/23/25 20:00 05/23/25 21:58 05/24/25 06:07 Temperature 36.8 C 37.0 C Pulse Rate 84 95 Respiratory Rate 20 18 Blood Pressure 112/68 121/75 Pulse Oximetry 95 95 Oxygen Delivery Room Air 05/24/25 07:41 05/24/25 09:09 05/24/25 14:00 Temperature 36.8 C Pulse Rate 78 Respiratory Rate 16 Blood Pressure 112/61 Pulse Oximetry 95 98 Oxygen Delivery Room Air Room Air Intake/Output Intake/Output: Intake & Output 05/21/25 05/22/25 05/23/25 05/24/25 23:59 23:59 23:59 23:59 Intake Total 3110.1 2840 3540 Output Total 30 80 700 Balance 3080.1 2760 2840 Meds/Results Medications: Active Medications Generic Name Dose Route Start Last Admin Trade Name Freq PRN Reason Stop Dose Admin Acetaminophen 500 mg 05/22/25 20:13 05/24/25 17:51 Acetaminophen 500 Mg Tablet PO 500 mg Q6H PRN Administration Pain Rated 1-3 Brimonidine Tartrate 1 drop 05/23/25 17:10 05/24/25 17:41 Brimonidine Tartrate 0.2% Op Soln 5 Ml Btl EACH EYE 1 drop BID LANDRY Administration Enoxaparin Sodium 80 mg 05/23/25 21:00 05/24/25 09:00 Enoxaparin 80 Mg/0.8 Ml Syringe SUB-Q Not Given Q12H LANDRY Famotidine 20 mg 05/24/25 21:00 Famotidine 20 Mg Tablet PO Q12HR LANDRY Hydrochlorothiazide 12.5 mg 05/23/25 09:00 05/24/25 09:02 Hydrochlorothiazide 12.5 Mg Capsule PO 12.5 mg DAILY LANDRY Administration Piperacillin Sod/Tazobactam 50 mls @ 100 mls/hr 05/23/25 00:00 05/24/25 17:41 Sod 3.375 gm/ Sodium Chloride IVPB 100 mls/hr Q6H LANDRY Administration Latanoprost 1 drop 05/24/25 21:00 Latanoprost 0.005% Op Soln 2.5 Ml Btl EACH EYE HS [facility] Losartan Potassium 50 mg 05/23/25 09:00 05/24/25 09:02 Losartan Potassium 50 Mg Tablet PO 50 mg DAILY LANDRY Administration Morphine Sulfate 1 mg 05/22/25 20:13 Morphine Sulfate (*Crx) 2 Mg/Ml Inj IV PUSH Q2H PRN Breakthrough Pain Rated 4-6 or NPO Morphine Sulfate 2 mg 05/22/25 20:13 Morphine Sulfate (*Crx) 4 Mg/Ml Inj IV PUSH Q2H PRN Breakthrough Pain Rated 7-10 or NPO Naloxone HCl 0.1 mg 05/22/25 20:13 Naloxone Hcl 0.4 Mg/Ml Vial IV PUSH Q2M PRN Opiate Reversal Ondansetron HCl 4 mg 05/22/25 20:13 Ondansetron Inj 4 Mg/2 Ml Vial IV PUSH Q4H PRN Nausea And Vomiting Oxycodone/Acetaminophen 1 tablet 05/22/25 20:13 05/23/25 14:52 Oxycodone/Acetaminophen (*Crx) 5-325 Mg Tablet PO 1 tablet Q4H PRN Administration Pain Rated 4-6 Potassium Chloride 20 meq 05/24/25 17:00 05/24/25 17:41 Potassium Chloride 20 Meq Er Tablet PO 20 meq BIDWM LANDRY Administration Timolol Maleate 1 drop 05/23/25 17:10 05/24/25 17:41 Timolol Maleate 0.5% Op Soln 5 Ml Bottle EACH EYE 1 drop BID LANDRY Administration Radiology Results: ITS Impressions Chest X-Ray 05/21/25 18:27 IMPRESSION: No acute cardiopulmonary process. Chest/Abdomen/Pelvis CTA 05/21/25 23:44 IMPRESSION: Limited evaluation of segmental and subsegmental pulmonary arteries. No central embolus detected. Small subsegmental nonocclusive emboli are suspected in the right upper and lower lobes. This would represent a small clot burden. No CT evidence of right heart strain. 3 mm broncholith with distal mucoid impaction in the superior segment of the right lower lobe. Mild interstitial edema. Mild aortic ectasia. Cardiomegaly. Hepatomegaly. Acute cholecystitis. Fluid tracking along the common bile duct with mild duct hyperemia, presumably reactive, unless there are additional signs or symptoms of cholangitis. Rachna hepatic and peripancreatic lymphadenopathy. 2.0 cm indeterminate density left adrenal mass. Recommend nonemergent but timely outpatient adrenal CT. Mesenteric panniculitis. Venous Doppler Study 05/22/25 09:55 IMPRESSION: Negative bilateral lower extremity venous US. No deep vein thrombosis. Abdomen Ultrasound 05/22/25 09:59 IMPRESSION: Cholelithiasis with highly suggestive cholecystitis. Clinical correlation advised. Otherwise, normal limited abdominal ultrasound. Hepatobiliary Scan Nuclear Medicine 05/22/25 12:46 Impression: Cystic duct obstruction.. Labs Labs: Laboratory Results - last 24 hr 05/24/25 05/24/25 05:06 16:01 WBC 9.7 RBC 2.85 L Hgb 9.1 L 10.0 L Hct 27.8 L 31.3 L MCV 97.5 MCH 31.9 MCHC 32.7 RDW 14.5 Plt Count 267 MPV 10.1 Sodium 135 L Potassium 3.3 L Chloride 104 Carbon Dioxide 30 Anion Gap 1 L BUN 9 Creatinine 0.65 L Estim Creat Clear Calc 101 Estimated GFR > 60 Glucose 87 Calcium 7.9 L
[2025-05-24 21:21] VITALS: BP 99/60; PULSE 70; RESP 24; TEMP 37.1; O2SAT 97
[2025-05-24] MEDS: FAMOTIDINE 20 MG TABLET PO (21:58)
[2025-05-24] MEDS: ENOXAPARIN 80 MG/0.8 ML SYRINGE SUB-Q (21:58)
[2025-05-25] MEDS: PIPERACILLIN/TAZOBACTAM SOD 3.375 GM in SODIUM CHLORIDE 0.9% IV 50 ML 100 ML IVPB ×2 (00:59→05:20)
[2025-05-25 05:58] VITALS: BP 117/74; PULSE 73; RESP 24; TEMP 37.1; O2SAT 98
[2025-05-25 05:58] LABS: Hematocrit 28.6 % (42.0-52.0); Hemoglobin 9.4 g/dL (14.0-18.0); Mean Corpuscular HGB Conc 32.9 g/dl (32-36); Mean Corpuscular Hemoglobin 32.4 pg (26-34); Mean Corpuscular Volume 98.6 fl (80-100); Platelet Count Result 321 k/mm3 (150-375); Red Blood Count 2.90 M/mm3 (4.6-6.20); White Blood Count 7.8 K/mm3 (4.5-10.0)
[2025-05-25 06:12] LABS: Anion Gap 5 mmol/L (4-12); Blood Urea Nitrogen 7 mg/dL (9-20); Calcium 8.2 mg/dL (8.4-10.2); Carbon Dioxide 26 mmol/L (22-30); Chloride 106 mmol/L (98-107); Estimated CRCL calculation 104 ml/min; Estimated Glomerular Filt Rate > 60; Glucose 96 mg/dL (65-110); Potassium 3.4 mmol/L (3.4-5.0); Sodium 137 mmol/L (137-145)
--- NOTE | 2025-05-25 09:29 | PM.PNGS ---
Progress Note: A&P Assessment and Plan (1) S/P laparoscopic cholecystectomy: Code(s): Z90.49 - Acquired absence of other specified parts of digestive tract Status: Acute Assessment and Plan: POD3 following laparoscopic cholecystectomy with Jamie drain placement. Continues to do well. Taking only Tylenol for pain. Able to ambulate. Tolerating regular diet. Stable for discharge from surgical perspective. Will plan to discharge on Augmentin 875 p.o. b.i.d. for another 5 days. He will also have his drain left in place with plans to follow up with Dr. Sampson on 05/28/2025. (2) Cholelithiasis and acute cholecystitis with obstruction: Code(s): K80.01 - Calculus of gallbladder with acute cholecystitis with obstruction Status: Chronic Assessment and Plan: Severe. No evidence of postsurgical complications at this point. (3) Acute gangrenous cholecystitis: Code(s): K81.0 - Acute cholecystitis Status: Acute (4) Pulmonary embolism: Qualifiers: Pulmonary embolism type: multiple subsegmental (without acute cor pulmonale) Qualified Code(s): I26.94 - Multiple subsegmental thrombotic pulmonary emboli without acute cor pulmonale Code(s): I26.99 - Other pulmonary embolism without acute cor pulmonale Status: Acute Assessment and Plan: Pulmonology note describes several diagnoses but does not indicate whether anticoagulation is needed or not. Initial consultation suggested anticoagulation for [address] Terrell, no need for anticoagulation. Full dose Lovenox last given last night. 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 No need for continued anticoagulation per last pulmonology note, as initial CT scan was likely overinterpreted. (6) Anemia: Qualifiers: Other causes of anemia: acute posthemorrhagic Code(s): D64.9 - Anemia, unspecified Status: Acute Assessment and Plan: H&H decreased each day following surgery. Anticoagulation started last night. Decreased H&H today is probably due to dilutional effects rather than bleeding. Will monitor. Plan Discussed patient's case and plan of care with Dr. Sampson. Subjective Subjective Date/Time Seen: 05/25/25 09:29 Post Op day: 3 Patient reports: no new complaints, feels better, tolerating a regular diet and bowel movement Interval history: Patient is doing well today. He is eager to be discharged. Passing BM. Ambulating with ease. Tolerating regular diet. Minimal pain. States that he has been able to sleep well these past two nights. Exam Const: General: comfortable and no acute distress GI: Inspection: non-distended GI Palp: Yes Soft to palpation, No Tenderness to palpation present (GI), No Guarding due to palpation present (GI) and No Hernia present Other: Incisions clean, dry, and intact. No signs of infection, dehiscence, or necrosis. Drain in place with serosanguineous fluid in bulb. Objective Data Vital Signs Vital Signs: Vital Signs - 24 hr 05/24/25 14:00 05/24/25 20:00 05/24/25 21:21 Temperature 98.3 F 98.8 F Pulse Rate 78 70 Respiratory Rate 16 24 H Blood Pressure 112/61 99/60 L Pulse Oximetry 98 97 Oxygen Delivery Room Air 05/25/25 05:58 Temperature 98.8 F Pulse Rate 73 Respiratory Rate 24 H Blood Pressure 117/74 Pulse Oximetry 98 Oxygen Delivery Intake/Output Intake/Output: Intake & Output 05/22/25 05/23/25 05/24/25 05/25/25 23:59 23:59 23:59 23:59 Intake Total 3110.1 2840 3590 340 Output Total 30 80 700 70 Balance 3080.1 2760 2890 270 Meds/Results Medications: Active Medications Generic Name Dose Route Start Last Admin Trade Name Freq PRN Reason Stop Dose Admin Acetaminophen 500 mg 05/22/25 20:13 05/24/25 17:51 Acetaminophen 500 Mg Tablet PO 500 mg Q6H PRN Administration Pain Rated 1-3 Brimonidine Tartrate 1 drop 05/23/25 17:10 05/24/25 17:41 Brimonidine Tartrate 0.2% Op Soln 5 Ml Btl EACH EYE 1 drop BID LANDRY Administration Enoxaparin Sodium 40 mg 05/25/25 09:00 Enoxaparin 40 Mg/0.4 Ml Syringe SUB-Q DAILY LANDRY Famotidine 20 mg 05/24/25 21:00 05/24/25 21:58 Famotidine 20 Mg Tablet PO 20 mg Q12HR LANDRY Administration Hydrochlorothiazide 12.5 mg 05/23/25 09:00 05/24/25 09:02 Hydrochlorothiazide 12.5 Mg Capsule PO 12.5 mg DAILY LANDRY Administration Piperacillin Sod/Tazobactam 50 mls @ 100 mls/hr 05/23/25 00:00 05/25/25 05:50 Sod 3.375 gm/ Sodium Chloride IVPB Infused Q6H LANDRY Infusion Latanoprost 1 drop 05/24/25 21:00 05/24/25 21:58 Latanoprost 0.005% Op Soln 2.5 Ml Btl EACH EYE 1 drop HS LANDRY Administration Losartan Potassium 50 mg 05/23/25 09:00 05/24/25 09:02 Losartan Potassium 50 Mg Tablet PO 50 mg DAILY LANDRY Administration Morphine Sulfate 1 mg 05/22/25 20:13 Morphine Sulfate (*Crx) 2 Mg/Ml Inj IV PUSH Q2H PRN Breakthrough Pain Rated 4-6 or NPO Morphine Sulfate 2 mg 05/22/25 20:13 Morphine Sulfate (*Crx) 4 Mg/Ml Inj IV PUSH Q2H PRN Breakthrough Pain Rated 7-10 or NPO Naloxone HCl 0.1 mg 05/22/25 20:13 Naloxone Hcl 0.4 Mg/Ml Vial IV PUSH Q2M PRN Opiate Reversal Ondansetron HCl 4 mg 05/22/25 20:13 Ondansetron Inj 4 Mg/2 Ml Vial IV PUSH Q4H PRN Nausea And Vomiting Oxycodone/Acetaminophen 1 tablet 05/22/25 20:13 05/23/25 14:52 Oxycodone/Acetaminophen (*Crx) 5-325 Mg Tablet PO 1 tablet Q4H PRN Administration Pain Rated 4-6 Potassium Chloride 20 meq 05/24/25 17:00 05/24/25 17:41 Potassium Chloride 20 Meq Er Tablet PO 20 meq BIDWM LANDRY Administration Timolol Maleate 1 drop 05/23/25 17:10 05/24/25 17:41 Timolol Maleate 0.5% Op Soln 5 Ml Bottle EACH EYE 1 drop BID LANDRY Administration Radiology Results: ITS Impressions Chest X-Ray 05/21/25 18:27 IMPRESSION: No acute cardiopulmonary process. Chest/Abdomen/Pelvis CTA 05/21/25 23:44 IMPRESSION: Limited evaluation of segmental and subsegmental pulmonary arteries. No central embolus detected. Small subsegmental nonocclusive emboli are suspected in the right upper and lower lobes. This would represent a small clot burden. No CT evidence of right heart strain. 3 mm broncholith with distal mucoid impaction in the superior segment of the right lower lobe. Mild interstitial edema. Mild aortic ectasia. Cardiomegaly. Hepatomegaly. Acute cholecystitis. Fluid tracking along the common bile duct with mild duct hyperemia, presumably reactive, unless there are additional signs or symptoms of cholangitis. Biju hepatic and peripancreatic lymphadenopathy. 2.0 cm indeterminate density left adrenal mass. Recommend nonemergent but timely outpatient adrenal CT. Mesenteric panniculitis. Venous Doppler Study 05/22/25 09:55 IMPRESSION: Negative bilateral lower extremity venous US. No deep vein thrombosis. Abdomen Ultrasound 05/22/25 09:59 IMPRESSION: Cholelithiasis with highly suggestive cholecystitis. Clinical correlation advised. Otherwise, normal limited abdominal ultrasound. Hepatobiliary Scan Nuclear Medicine 05/22/25 12:46 Impression: Cystic duct obstruction.. Labs Labs: Laboratory Results - last 24 hr 05/24/25 05/25/25 16:01 05:21 WBC 7.8 RBC 2.90 L Hgb 10.0 L 9.4 L Hct 31.3 L 28.6 L MCV 98.6 MCH 32.4 MCHC 32.9 RDW 14.6 H Plt Count 321 MPV 9.7 Sodium 137 Potassium 3.4 Chloride 106 Carbon Dioxide 26 Anion Gap 5 BUN 7 L Creatinine 0.63 L Estim Creat Clear Calc 104 Estimated GFR > 60 Glucose 96 Calcium 8.2 L
[2025-05-25] MEDS: ENOXAPARIN 40 MG/0.4 ML SYRINGE SUB-Q (09:51)
[2025-05-25] MEDS: FAMOTIDINE 20 MG TABLET PO (09:51)
[2025-05-25] MEDS: POTASSIUM CHLORIDE 20 MEQ ER TABLET PO (09:51)
[2025-05-25] MEDS: BRIMONIDINE TARTRATE 0.2% OP SOLN 5 ML BTL 1 DROP EACH EYE (09:51)
[2025-05-25] MEDS: TIMOLOL MALEATE 0.5% OP SOLN 5 ML BOTTLE 1 DROP EACH EYE (09:52)
--- NOTE | 2025-05-25 11:32 | P.DS_ITS ---
DS: Admitting Diagnosis Discharge Date 05/25/25 Admitting Diagnosis cholecystitis DS: Discharge Diagnosis Discharge Diagnosis (1) Broncholithiasis: Code(s): J98.09 - Other diseases of bronchus, not elsewhere classified Status: Acute (2) Acute cholecystitis: Code(s): K81.0 - Acute cholecystitis Status: Deleted (3) Pulmonary embolism: Qualifiers: Pulmonary embolism type: multiple subsegmental (without acute cor pulmonale) Qualified Code(s): I26.94 - Multiple subsegmental thrombotic pulmonary emboli without acute cor pulmonale Code(s): I26.99 - Other pulmonary embolism without acute cor pulmonale Status: Acute (4) Sepsis: Code(s): A41.9 - Sepsis, unspecified organism Status: Acute Plan Acute PE: CT ??concerning for subsegmental PE. D Dimer elevated lower ext neg for DVT. Had tachypnea but not tachycardia ECHO unremarkable pulmonary team on board. sheryl has PE. No need for AC Acute cholecystitis S/P laparoscopic cholecystectomy and drain placement 05/23/25 CT abd concerning for acute cholecystitis. US showed Cholelithiasis with highly suggestive cholecystitis HIDA scan showed Cystic duct obstruction. discharge on Augmentin Acute anemia possible dilutional vs bleeding in setting of being on Lovenox stable, follow with lab test as outpatient monitor H&h transfuse if Hb less than 7 Chest pain resolved troponin was neg. EKG neg for acute changes ECHO unremarkable Continue to monitor possible sepsis in setting of cholecystitis tachypnea and leucocytosis Leucocytosis improved continue Augmentin follow culture results neg so far Hypokalemia received po potassium DS: Summary Hospital Course Hospital Course: per HPi: Patient is 64 y male presented to the Er with chest pain yesterday, about one hour later moved to the [facility] abd. patient notes the pain was doll getting worse with taking deep breath. denies any fever, chills, SOB, N/V. In the Er vital signs were stable, no fever, no tachycardia. had some tachypnea. Lab tests showed WBC 13.3-->18.8, troponin was neg. D Dimer was mildly elevated. CTA concerning for subsegmental PE. lower ext neg for DVT. CT abd concerning for acute cholecystitis. Surgery and pulmonary team were consulted and patient was admitted for further management. US showed Cholelithiasis with highly suggestive cholecystitis HIDA scan showed Cystic duct obstruction 05/23/25 Patient was seen and examined at bedside. he is feeling fine. has some soreness on his abd. underwent laparoscopic cholecystectomy and drain placement yesterday. continue IV Abx. follow culture results. continue to monitor. will continue Lovenox for PE 05/24/25 Patient was seen and examined at bedside. he is feeling better. his abd pain improving. denies any chest pain, Sob. No acute event over night. will hold of Lovenox this morning with drop in Hb, Will recheck Hb in the afternoon. Will Dc IVF 05/25/25 Patient was seen and examined at bedside. he is feeling fine, deneis any chest pain, OSB,a bd pain, N/V. per surgery patient can be discharged and follow as outpatient. per pulmonary team no need for anticoagulation. B/C neg in 48h. patient wants to be discharged and follow as outpatient . Surgery team recs Augmentin. Status at Discharge Overall status at discharge: patient is progressing back to baseline Time Spent with Patient Time attestation: Total time spent providing and/or coordinating discharge services: Time spent: Greater than 30 minutes Exam Narrative: GENERAL: Well appearing, well-nourished, non-toxic, in no acute distress. HEAD: Normocephalic, atraumatic. NECK: Supple. No adenopathy, no masses. RESPIRATORY: Airway patent, respirations nonlabored. Clear to auscultation bilaterally, no rales, rhonchi, wheezing. CARDIOVASCULAR: Regular rate and rhythm without murmurs, rubs, or gallops. Peripheral pulses 2+ and equal bilaterally. ABDOMINAL: Soft, RUQ drain, nondistended, no hepatosplenomegaly. Normoactive BS, + Avalos's test MUSCULOSKELETAL: Moves all extremities. Strength/ROM intact without gross deformities. SKIN: Warm, dry, normal color. No rashes. NEURO: A&O X3. Speech clear. Cranial nerves II-XII intact. No ataxic movements. PSYCHIATRIC: Appropriate mood and affect. Normal interaction. Const: General: cooperative, healthy appearing, comfortable and no acute distress Orientation/consciousness: oriented to person, oriented to place and oriented to time HENMT: Head: normal to inspection Ears: hearing grossly normal bilaterally Eyes: General: appearance normal, both eyes and all related structures Neck: Neck: normal visual inspection Chest: Chest palpation & inspection: normal inspection of the chest Other: No tenderness to palpation in the right lower ribcage. Resp: Effort & Inspection: normal respiratory effort and able to speak in complete sentences Auscultation: no crackles, no rales, no rhonchi, no wheezes and lung sounds not diminished Cardio: Jugular venous distension: no JVD Rate: regular rate GI: Inspection: normal to inspection and non-distended Other: Right upper quadrant tenderness improving. has jose eduardo. Skin: General skin exam: normal color and no rashes or lesions noted Neuro: General: oriented to person, oriented to place and oriented to time Speech: normal speech Sensory Exam: normal sensation Extrem: General: normal to inspection and no edema Psych: Appearance: grossly normal Mental Status: mental status grossly normal DS: Data Data Completed and Pending Pending studies at discharge: Pending at discharge 05/22/25 17:33 Surgical [PTH] Routine Labs on day of discharge: Labs from last 24 hours 05/25/25 05/24/25 05:21 16:01 WBC 7.8 RBC 2.90 L Hgb 9.4 L 10.0 L Hct 28.6 L 31.3 L MCV 98.6 MCH 32.4 MCHC 32.9 RDW 14.6 H Plt Count 321 MPV 9.7 Sodium 137 Potassium 3.4 Chloride 106 Carbon Dioxide 26 Anion Gap 5 BUN 7 L Creatinine 0.63 L Estim Creat Clear Calc 104 Estimated GFR > 60 Glucose 96 Calcium 8.2 L Preliminary micro results at discharge 05/22/25 01:52 Blood Culture - Preliminary Blood 05/22/25 02:29 Blood Culture - Preliminary Blood Discharge Plan Discharge Attending physician on discharge: Maynor Umanzor Consulting providers: Bhavin Sampson; Danny Tran; Maynor Umanzor Discharging Clinician: Maynor Umanzor Anticipated Discharge Date/Time: 05/25/25 11:28 Patient Disposition: Home Activity: as tolerated Diet: as tolerated Discharge Instructions: DISCHARGE INSTRUCTION SHEET FOR HERNIA AND LAP ANNAILSA SURGERIES DR. SAMPSON PATIENT TO TAKE HOME 1. Sponge bathe or saran wrap over drain site while bathing. 2. Call office for: * Wound increasingly painful or bleeding * Vomiting * Fever of greater than 101 degrees 3. Expect some blood on dressing and old blood on skin. 4. If no bowel movement for three days, take 1 oz. (30 ml) Milk of Magnesia, if no results, take Fleets enema. 5. No heavy lifting > 10-15 pounds x 4-6 weeks for hernia repairs and 2-3 weeks for laparoscopic cholecystectomy. 6. No driving until drain is removed. 7. Change dressing over drain daily. Empty bulb when filled and document amount of output in mL. 8. Up walking 10-30 minutes three times per day. 9. Resume previous home medications. 10. Follow-up 10-14 days in office for wound check or as previously scheduled. 11. Continue Tylenol and ibuprofen for pain. 12. NUTRITION: Start out by drinking fluids and increase your diet as tolerated. If you experience nausea, try dry toast, crackers, and 7-UP. If nausea or vomiting persists, contact your surgeon?s office. Rev. 10/18 plan to discharge on Augmentin 875 p.o. b.i.d. for another 5 days. He will also have his drain left in place with plans to follow up with Dr. Sampson on 05/28/2025. follow with repeat lab test in 2-3 days and report to PCP. follow with final blood culture results as outpatient and report to the PCP. Patient Instructions: Antibiotic Form Patient Language: [place] Stand Alone Forms: General Discharge Information Follow-up/Referrals: Lsieth,Fred Hughes MD [Primary Care Provider] - 1 Week Bhavin Sampson MD [Physician] - Keep Reg. Scheduled Appt. Discharge Medications: New amoxicillin-pot clavulanate 875-125 mg tablet 1 tablet PO BID Qty: 10 0RF Continued brimonidine-timolol 0.2-0.5 % drops 1 drp EACH EYE Q12H latanoprost 0.005 % drops 1 drp EACH EYE QPM losartan-hydrochlorothiazide 100-25 mg tablet 0.5 tablet PO DAILY Rx Instructions: 0.5 TAB Other Ambulatory Orders: Basic Metabolic Panel (Routine) Timeframe: 2 Days Location: Determined by Patient Ordered By: Maynor Umanzor Complete Blood Count no Diff (Routine) Timeframe: 2 Days Location: Determined by Patient Ordered By: Maynor Umanzor Date of admission: 05/22/25 20:13 Primary Care Provider: Mona,Fred Hughes Admitting Provider: Vero Erickson Attending physician on admission: Vero Erickson Condition: Serious
--- NOTE | 2025-05-25 12:41 | P.PNPL_ITS ---
Progress Note: A&P Assessment and Plan (1) Broncholithiasis: Code(s): J98.09 - Other diseases of bronchus, not elsewhere classified Status: Acute Assessment and Plan: Patient has broncholith in the superior segment of the right lower lobe with small area of mucoid impaction and distal bronchiectasis. Patient does not have recurrent bronchitis or infectious pulmonary complaints. At this time no further follow up required. Plan I removed the diagnosis of pulmonary embolus. He had a better reason for all symptoms that were initially thought to represent a small PE. All symptoms resolved with surgery for his infected gallbladder. He mcfarlane snot require follow up as an out patient. He has our office number, and he will contact us if he decides that he has a need to do so. If he is acutely ill with any symptoms that represent a PE, he goes to the ER. He would not benefit from a repeat CTA in a week. Subjective Date/time seen: 05/25/25 12:41 Interval history: 66-year-old with a history of hypertension, glaucoma, COVID 10/2020 and made a complete recovery, s/p left knee replacement for arthritis in 2017. Patient denies a history of childhood asthma, COPD, recurrent bronchial infections, and has no respiratory limitations in his activities of daily living. At baseline he can walk an unlimited distance. He does not have, it chronic cough, phlegm or hemoptysis. Patient is a never smoker, was exposed to secondhand smoke from his mother but none since. Patient worked at [employer] throughout his entire career. Denies sand blasting, welding, asbestos were, professional painting, steel mill platform supervisor, construction work, coal mining or concrete work. Patient has no known history of blood clots and no history of blood clots in the family. patient was in his usual state of health and the evening of 05/18/2025 he took 2 mg of Ativan in anticipation of deep cavity and crown placement on 05/19/2025. On 05/19/2025 the patient woke up in his usual state of health and took 2 mg of Ativan and had his dental procedure performed without complications. He walked to the car after that and had no respiratory issues. Patient slept until 230 in the afternoon and then his woke him up and he walked to the couch but he remained very sleepy. Patient went to bed at 5:30 a.m. at that time had no respiratory symptoms. Patient slept until 730 in the morning. On 05/20/2024 patient woke up at 7:30 a.m. was walking, had no respiratory issues, felt a little groggy or loopy. He drove to his son house and work done carpentry projects until 3:00 p.m. and came home and felt exhausted. He ate dinner. The states that his groggy and loopy mental status were better. Patient had no respiratory issues and went to bed. 05/21/2025 patient woke up with completely normal mental status. He noticed dull bilateral anterior chest pain rated at a score of 2 to 3/10. He had no other respiratory issues went to his son's house to perform carpentry. His temporary crown fell off and he went to the dentist. He then drove home. his dull anterior chest pain had resolved. At approximately 5:00 p.m. He developed some right-sided Pleuritic pain located in the lower ribcage and right upper quadrant. He vomited once. He then was able to crab picker a [employer] in anticipation of an upcoming vacation. He cut the grass with no respiratory issues and then had another episode of vomiting. He presented to the emergency department about 6:00 p.m. As a right lower rib pain and right upper quadrant pain intensified.. In the emergency department he complained of chest pain that had resolved and now complained of right upper abdominal pain. His blood pressure is 126/83, heart rate 69, respirations 16 and his room air saturations were 96%. His Wells criteria score was 0. His white blood cell count was 13.3, his creatinine was 0.76, his BNP was 85, his troponins were negative x2, his alk-phos was 53, his AST was 5028, ALT was 16. His D-dimer was positive at 0.64, TSH was 0.971. CT angiogram chest abdomen pelvis was limited by beam hardening and motion artifact demonstrated small nonocclusive subsegmental PE right upper lobe and right lower lobe with no right heart strain. There is a 3 mm broncholith with distal mucus impaction in the superior segment of the right lower lobe. There was a calcified granuloma in the left lower lobe. CT abdomen was consistent with acute cholecystitis. Patient was started on IV heparin, given ceftriaxone and Flagyl. 05/22/2025: Currently the patient tells me he sweated once today but denies fever, chills, rigors. he denies shortness of breath at rest, dyspnea on exertion, cough, phlegm, hemoptysis or dull chest pain. When he takes a deep breath or cough he has right lower rib pain and right upper quadrant pain that appears pleuritic in nature. He denies any leg swelling. recent plane trips, recent car trips, recent chest or leg trauma. He is afebrile. room air saturation 94%. White blood cell count 18.8. Lower extremity Dopplers negative for DVT. Abdominal ultrasound with cholelithiasis with highly suggestive cholecystitis. I reviewed the CT an giogram of the chest with another radiologist who felt that this study was not definitive for PE and if they were present this represented day a very small clot burden. 05/23/2025: He is seen in Room 342 for follow up for possible PE with negative lower extremity Doppler. He is on room air, saturation 95-97%, feels tired, exhausted from the surgery however he is not having shortness of breath. All of his chest symptoms have resolved. He is not coughing, has no sputum. He is using his spirometer, can inhale > 1 liter. 05/24/25; no shortness of breath. Had a shower, walked around room breathing room air. Magaly is at the bedside. Pt can use IX to inhale to 2 L. He feels restored to his pre-operative pulmonary status. His enoxaparin was held because his H/H dropped a little, went from 10.8/32.4% yesterday to 9.1/27.8% today, on recheck was 10/31.3%. This is equilibration due to blood loss and fluid administration. He is stable, discussed not re-starting any anticoagulation as he risk of PE appears to be less than what we thought initially. His pleuritic pain was from his infected gall bladder. Sat is 95-98% on room air. 05/25/2025; RA saturation is 95-98%. Magaly is at the bedside. He has no pulmonary complaints. Surgery has cleared him for discharge today. He has no shortness of breath, can walk without restrictions. He is pulmonary-jackson back to baseline. Data: 05/22/25: Limited ABDOMINAL ULTRASOUND (Doppler ultrasound interrogation techniques used as needed for this exam.) Ordering provider: Bhavin Sampson History: . RUQ pain . Comparison: None. FINDINGS: PANCREAS: Not visualized. PORTAL VEIN: Hepatopedal flow demonstrated. LIVER: Partially obscured by bowel gas. Normal size and echotexture. No focal hepatic lesions. Minimal Perihepatic fluid collections identified anteriorly. BILIARY DUCTS: No intra or extrahepatic biliary dilation. Common bile duct measures 4.7 mm in diameter which is normal for patient's age. GALLBLADDER: Stone is seen in the neck of the gallbladder measuring 2.1 cm. Sludge, gallbladder wall thickening and pericholecystic fluid are noted. Wall thickness is 5 mm. Negative sonographic Avalos's sign. FREE FLUID: None visualized within the upper abdomen. IMPRESSION: Cholelithiasis with highly suggestive cholecystitis. Clinical correlation advised. Otherwise, normal limited abdominal ultrasound. 05/22/25: BILATERAL LOWER EXTREMITY VENOUS ULTRASOUND Ordering provider: Bhavin Sampson MD History: . eval for DVT . Comparison: None. FINDINGS: RIGHT LOWER EXTREMITY VEINS: --COMMON FEMORAL: Patent and free of thrombus. Normal compressibility, phasic flow and augmentation. --PROXIMAL SUPERFICIAL FEMORAL: Patent and free of thrombus. Normal compressibility, phasic flow and augmentation. --DISTAL SUPERFICIAL FEMORAL: Patent and free of thrombus. Normal compressibility, phasic flow and augmentation. --POPLITEAL: Patent and free of thrombus. Normal compressibility, phasic flow and augmentation. --POSTERIOR TIBIAL: Patent and free of thrombus. Normal compressibility, phasic flow and augmentation. LEFT LOWER EXTREMITY VEINS: --COMMON FEMORAL: Patent and free of thrombus. Normal compressibility, phasic flow and augmentation. --PROXIMAL SUPERFICIAL FEMORAL: Patent and free of thrombus. Normal compressibility, phasic flow and augmentation. --DISTAL SUPERFICIAL FEMORAL: Patent and free of thrombus. Normal compressibility, phasic flow and augmentation. --POPLITEAL: Patent and free of thrombus. Normal compressibility, phasic flow and augmentation. --POSTERIOR TIBIAL: Patent and free of thrombus. Normal compressibility, phasic flow and augmentation. IMPRESSION: Negative bilateral lower extremity venous US. No deep vein thrombosis. 05/21/25; EXAMINATION: CTA chest PE abdomen pel INDICATION: chest pain, RUQ abdominal pain COMPARISON: None. FINDINGS: CHEST: Lung parenchyma and airways: Mild septal thickening. Dependent scar/atelectasis. Granulomatous calcifications. 3 mm calcification in a superior segment right lower lobe bronchus, with distal tubular opacification. Remaining airways are clear. Calcified granulomas. Pleura: Unremarkable. Thoracic inlet, axillae and chest wall: No thyroid or soft tissue mass. Thoracic aorta: The ascending thoracic aorta is dilated to 4.0 cm. Mediastinum: Mildly dilated central pulmonary arteries as can be seen with pulmonary hypertension. Heart and pericardium: Enlarged heart. No pericardial effusion. RV/LV ratio less than 1. Coronary artery calcifications: . Thoracic bones: No acute osseous finding. Pulmonary arteries: Study quality: Exam limited by beam hardening and motion artifact limiting evaluation of segmental and subsegmental pulmonary arteries. No central pulmonary emboli detected. Small nonocclusive subsegmental emboli are suspected in the right upper lobe (image 79/239) and the right lower lobe image 123/239). ABDOMEN/PELVIS: Liver: Enlarged. No focal lesions detected. Biliary/Gallbladder: The gallbladder is distended with surrounding inflammatory stranding mild gallbladder wall edema. No bile duct dilation. Pancreas: No mass or duct dilation. Spleen: Normal. Adrenals: Normal right adrenal. 2.0 cm indeterminate density left adrenal mass. Kidneys: No suspicious mass, obstructing stone, or hydronephrosis. Excreted contrast in the renal calyces could obscure small calcifications. Simple right midpole cyst. Subcentimeter left renal hypodensities, too small to characterize but most likely represent cysts. GI tract: Small hiatal hernia. No small or large bowel dilation. Appendix not confidently visualized. Diverticulosis without diverticulitis. Mesentery/Peritoneum: Enlarged rachna hepatic and peripancreatic lymph nodes. Mild mesenteric edema with fat halos surrounding prominent mesenteric lymph nodes. Retroperitoneum: No mass. Pelvis: Normal urinary bladder. Mild prostatomegaly. Trace free pelvic fluid Soft Tissues: Small, fat-containing umbilical and bilateral inguinal hernias. Abdominopelvic bones: No acute osseous finding. IMPRESSION: Limited evaluation of segmental and subsegmental pulmonary arteries. No central embolus detected. Small subsegmental nonocclusive emboli are suspected in the right upper and lower lobes. This would represent a small clot burden. No CT evidence of right heart strain. 3 mm broncholith with distal mucoid impaction in the superior segment of the right lower lobe. Mild interstitial edema. Mild aortic ectasia. Cardiomegaly. Hepatomegaly. Acute cholecystitis. Fluid tracking along the common bile duct with mild duct hyperemia, presumably reactive, unless there are additional signs or symptoms of cholangitis. Rachna hepatic and peripancreatic lymphadenopathy. 2.0 cm indeterminate density left adrenal mass. Recommend nonemergent but timely outpatient adrenal CT. Mesenteric panniculitis. Review of Systems Review of Systems: All systems reviewed & are unremarkable except as noted in HPI and below Exam Narrative: GEN: Alert, oriented, not in distress. Room air saturation 98% NECK: Trachea is midline CHEST: Equal air entry, symmetric excursion, clear breath sounds. CV: Regular S1S2 no m/g/r Objective Data Vital Signs Vital Signs: Vital Signs - 24 hr 05/24/25 14:00 05/24/25 20:00 05/24/25 21:21 Temperature 36.8 C 37.1 C Pulse Rate 78 70 Respiratory Rate 16 24 H Blood Pressure 112/61 99/60 L Pulse Oximetry 98 97 Oxygen Delivery Room Air 05/25/25 05:58 05/25/25 09:57 Temperature 37.1 C Pulse Rate 73 Respiratory Rate 24 H Blood Pressure 117/74 Pulse Oximetry 98 Oxygen Delivery Room Air Intake/Output Intake/Output: Intake & Output 05/22/25 05/23/25 05/24/25 05/25/25 23:59 23:59 23:59 23:59 Intake Total 3110.1 2840 3590 340 Output Total 30 80 700 70 Balance 3080.1 9559 7973 270 Meds/Results Medications: Active Medications Generic Name Dose Route Start Last Admin Trade Name Freq PRN Reason Stop Dose Admin Acetaminophen 500 mg 05/22/25 20:13 05/24/25 17:51 Acetaminophen 500 Mg Tablet PO 500 mg Q6H PRN Administration Pain Rated 1-3 Amoxicillin/Clavulanate Potassium 1 tablet 05/25/25 12:00 Amoxicillin/Clavulanate K 875-125 Mg Tab PO Q12HR LANDRY Brimonidine Tartrate 1 drop 05/23/25 17:10 05/25/25 09:51 Brimonidine Tartrate 0.2% Op Soln 5 Ml Btl EACH EYE 1 drop BID LANDRY Administration Enoxaparin Sodium 40 mg 05/25/25 09:00 05/25/25 09:51 Enoxaparin 40 Mg/0.4 Ml Syringe SUB-Q 40 mg DAILY LANDRY Administration Famotidine 20 mg 05/24/25 21:00 05/25/25 09:51 Famotidine 20 Mg Tablet PO 20 mg Q12HR LANDRY Administration Hydrochlorothiazide 12.5 mg 05/23/25 09:00 05/25/25 09:51 Hydrochlorothiazide 12.5 Mg Capsule PO 12.5 mg DAILY LANDRY Administration Latanoprost 1 drop 05/24/25 21:00 05/24/25 21:58 Latanoprost 0.005% Op Soln 2.5 Ml Btl EACH EYE 1 drop HS LANDRY Administration Losartan Potassium 50 mg 05/23/25 09:00 05/24/25 09:02 Losartan Potassium 50 Mg Tablet PO 50 mg DAILY LANDRY Administration Morphine Sulfate 1 mg 05/22/25 20:13 Morphine Sulfate (*Crx) 2 Mg/Ml Inj IV PUSH Q2H PRN Breakthrough Pain Rated 4-6 or NPO Morphine Sulfate 2 mg 05/22/25 20:13 Morphine Sulfate (*Crx) 4 Mg/Ml Inj IV PUSH Q2H PRN Breakthrough Pain Rated 7-10 or NPO Naloxone HCl 0.1 mg 05/22/25 20:13 Naloxone Hcl 0.4 Mg/Ml Vial IV PUSH Q2M PRN Opiate Reversal Ondansetron HCl 4 mg 05/22/25 20:13 Ondansetron Inj 4 Mg/2 Ml Vial IV PUSH Q4H PRN Nausea And Vomiting Oxycodone/Acetaminophen 1 tablet 05/22/25 20:13 05/23/25 14:52 Oxycodone/Acetaminophen (*Crx) 5-325 Mg Tablet PO 1 tablet Q4H PRN Administration Pain Rated 4-6 Potassium Chloride 20 meq 05/24/25 17:00 05/25/25 09:51 Potassium Chloride 20 Meq Er Tablet PO 20 meq BIDWM LANDRY Administration Timolol Maleate 1 drop 05/23/25 17:10 05/25/25 09:52 Timolol Maleate 0.5% Op Soln 5 Ml Bottle EACH EYE 1 drop BID LANDRY Administration Radiology Results: ITS Impressions Chest X-Ray 05/21/25 18:27 IMPRESSION: No acute cardiopulmonary process. Chest/Abdomen/Pelvis CTA 05/21/25 23:44 IMPRESSION: Limited evaluation of segmental and subsegmental pulmonary arteries. No central embolus detected. Small subsegmental nonocclusive emboli are suspected in the right upper and lower lobes. This would represent a small clot burden. No CT evidence of right heart strain. 3 mm broncholith with distal mucoid impaction in the superior segment of the right lower lobe. Mild interstitial edema. Mild aortic ectasia. Cardiomegaly. Hepatomegaly. Acute cholecystitis. Fluid tracking along the common bile duct with mild duct hyperemia, presumably reactive, unless there are additional signs or symptoms of cholangitis. Rachna hepatic and peripancreatic lymphadenopathy. 2.0 cm indeterminate density left adrenal mass. Recommend nonemergent but timely outpatient adrenal CT. Mesenteric panniculitis. Venous Doppler Study 05/22/25 09:55 IMPRESSION: Negative bilateral lower extremity venous US. No deep vein thrombosis. Abdomen Ultrasound 05/22/25 09:59 IMPRESSION: Cholelithiasis with highly suggestive cholecystitis. Clinical correlation advised. Otherwise, normal limited abdominal ultrasound. Hepatobiliary Scan Nuclear Medicine 05/22/25 12:46 Impression: Cystic duct obstruction.. Labs Labs: Laboratory Results - last 24 hr 05/24/25 05/25/25 16:01 05:21 WBC 7.8 RBC 2.90 L Hgb 10.0 L 9.4 L Hct 31.3 L 28.6 L MCV 98.6 MCH 32.4 MCHC 32.9 RDW 14.6 H Plt Count 321 MPV 9.7 Sodium 137 Potassium 3.4 Chloride 106 Carbon Dioxide 26 Anion Gap 5 BUN 7 L Creatinine 0.63 L Estim Creat Clear Calc 104 Estimated GFR > 60 Glucose 96 Calcium 8.2 L
--- NOTE | 2025-05-25 13:32 | PC.NURSE ---
RN completed drain teaching with patient and spouse at bedside. RN sent patient how with measuring cups to measure drain output and record output. RN also sent patient home with supplies to change drain dressing.
--- NOTE | 2025-05-29 08:27 | PC.NURSE ---
Blood cx show no growth.
== END 2025-05-25 13:13 | disposition home or self-care (01) | DRG 417 ==
LOC: ANHED 05-22 01:39 → ANH3MED 05-22 07:14
PROVIDERS: Emergency Medicine; Surgery; Admitting Provider General Practice; Emergency Provider Registered Nurse; PCP Family Medicine; Visit Provider Internal Medicine
PROC: 0FT44ZZ Resection of Gallbladder, Percutaneous Endoscopic Approach (ICD-10-PCS; CPT 47562; principal; 2025-05-22 17:00)
DX: K80.01 Calculus of gallbladder with acute cholecystitis with obstruction (principal); I26.99 Other pulmonary embolism without acute cor pulmonale; J98.09 Other diseases of bronchus, not elsewhere classified; E87.6 Hypokalemia; I10 Essential (primary) hypertension; D64.9 Anemia, unspecified; Z96.652 Presence of left artificial knee joint; Z86.16 Personal history of COVID-19
CPT/HCPCS: 36415; 71046; 71275; 74177; 76705; 78226; 80048; 80053; 83605; 83690; 83880; 84443; 84484; 85014; 85018; 85025; 85027; 85380; 85610; 85730; 86140; 87040; 88304; 93005; 93306; 93970; 96365; 96367; 96368; 96375; 96376; 99285; A9270; A9537; G0378; J0696; J1100; J1171; J1644; J1650; J1836; J2003; J2270; J2405; J2543; J2704; J3010; J7030; J7120; Q9967

== ENCOUNTER 2025-05-27 12:07 | Outpatient (CLI) | payer BC, SELFPAY ==
--- OUTSIDE RECORDS SUMMARY | 2025-05-27 12:11 | XMS_ITS | Encounter Summary ---
Author Organization [facility] Healthcare Address [address] [place] [address] Care Team Providers Care Auto Painter Helper Name Role Phone Bhavin Jackson MD Primary Care Provider [phone] Encounter Details Date Type Department Care Team (Late st Contact Info) Description 11/06/2019 Documentation [facility] Case Management [address] [place] [address] Lakesha Saez RN Social History Tobacco Use Types Packs/Day Years Used Date Smoking Tobacco: Never Smokeless Tobacco: Never Sex and Gender Information Value Date Recorded Sex Assigned at Not on file Legal 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
--- OUTSIDE RECORDS SUMMARY | 2025-05-27 12:11 | XMS_ITS | Clinical Summary ---
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 Gender Identity Not on file Sexual Orientation Not on file Obstetrics History Last Filed Vital Signs Vital Sign Reading Time Taken Comments Blood Pressure 116/69 11/04/2019 2:00 PM DEMURRAGE WORKER Pulse 75 11/04/2019 2:00 PM DEMURRAGE WORKER Temperature 36.2 C (97.2 F) 09/15/2020 2:06 PM DEMURRAGE WORKER Respiratory Rate 19 11/04/2019 2:00 PM DEMURRAGE WORKER Oxygen Saturation 94% 11/04/2019 2:00 PM DEMURRAGE WORKER Inhaled Oxygen Concentration - - Weight 93.7 kg (206 lb 9.6 oz) 11/04/2019 11:00 AM DEMURRAGE WORKER Height 177.8 cm (5' 10) 11/04/2019 11:00 AM DEMURRAGE WORKER Body Mass Index 29.64 11/04/2019 11:00 AM DEMURRAGE WORKER Plan of Treatment Not on file Medical Devices Implanted Type Area Psychological Operations Specialist Device Identifier Shelf Expiration Date Model / Serial / Lot [employer] [id number] Persona Cruciate Retaining Knee Left 10 Standard Component - S - [id number] Implanted:Qty: 1 on 11/04/2019 by Bhavin Nick MD at [facility] Other - see comments Left: Knee [employer] [id number] 05/04/2029 [id number] / / [id number] [employer] [id number] Persona 16mm Cruciate Retain Knee Left 8-11 Ef Insert Articular Latex Free - S - [id number] Implanted:Qty: 1 on 11/04/2019 by Bhavin Nick MD at [facility] Other - see comments Left: Knee [employer] [id number] 02/03/2024 [id number] / / [id number] [employer] [id number] Persona 2 Peg Knee Left E Baseplate Tibial Trabecular Metal - S - [id number] Implanted:Qty: 1 on 11/04/2019 by Bhavin Nick MD at [facility] Other - see comments Left: Knee [employer] [id number] 09/04/2029 [id number] / / [id number] Insurance [facility] CHOICE PLUS [facility] CHOICE PLUS [facility] CHOICE PLUS [place] [employer] Advance Directives For more information, please contact: [phone] * Full Code (Latest Code Status on File) Date Activated Date Inactivated Comments 11/04/2019 10:50 AM 11/05/2019 12:47 AM Care Teams Client Services Specialist Relationship Specialty Start Date End Date Bhavin Jackson MD [address] [facility] [address] [place] [address] PCP - General Internal Medicine 08/28/19
--- OUTSIDE RECORDS SUMMARY | 2025-05-27 12:11 | XMS_ITS | Referral Summary ---
Author Organization [facility] Address [address] [place] [address] Care Team Providers Care Sample Collector Name Role Phone Bhavin Jackson MD Primary Care Provider [phone] Allergies No known active allergies Medications lisinopril-hydro CHLOROthiazide (ZESTORETIC) 10-12.5 mg per tabletIndication s:hypertension Take 1 tablet by mouth early childhood teacher before breakfast Active celecoxib (CeleBREX) 200 mg [...] (09/30/2019): Added automatically from request for surgery [id number] Surgical follow-up care 02/23/2017 Neoplasm of skin [...] on file Legal Sex Male 6:34 AM DISTRIBUTION SUPERVISOR Gender Identity Not on file Sexual Orientation Not on file Last Filed Vital Signs Vital Sign Reading Time Taken Comments Blood Pressure 116/69 11/04/2019 2:00 PM DISTRIBUTION SUPERVISOR Pulse 75 11/04/2019 2:00 PM DISTRIBUTION SUPERVISOR Temperature 36.2 C (97.2 F) 09/15/2020 2:06 PM DISTRIBUTION SUPERVISOR Respiratory Rate 19 11/04/2019 2:00 PM DISTRIBUTION SUPERVISOR Oxygen Saturation 94% 11/04/2019 2:00 PM DISTRIBUTION SUPERVISOR Inhaled Oxygen Concentration - - Weight 93.7 kg (206 lb 9.6 oz) 11/04/2019 11:00 AM DISTRIBUTION SUPERVISOR Height 177.8 cm (5' 10) 11/04/2019 11:00 AM DISTRIBUTION SUPERVISOR Body Mass Index 29.64 11/04/2019 11:00 AM DISTRIBUTION SUPERVISOR Plan of Treatment Not on file Medical Devices Implanted Type Area Girls Tennis Coach Device Identifier Shelf Expiration Date Model / Serial / Lot [employer] [id number] Persona Cruciate Retaining Knee Left 10 Standard Component - S - [id number] Implanted:Qty: 1 on 11/04/2019 by Bhavin Nick MD at [facility] Other - see comments Left: Knee [employer] [id number] 05/04/2029 [id number] / / [id number] [employer] [id number] Persona 16mm Cruciate Retain Knee Left 8-11 Ef Insert Articular Latex Free - S - [id number] Implanted:Qty: 1 on 11/04/2019 by Bhavin Nick MD at [facility] Other - see comments Left: Knee [employer] [id number] 02/03/2024 [id number] / / [id number] [employer] [id number] Persona 2 Peg Knee Left E Baseplate Tibial Trabecular Metal - S - [id number] Implanted:Qty: 1 on 11/04/2019 by Bhavin Nick MD at [facility] Other - see comments Left: Knee [employer] [id number] 09/04/2029 [id number] / / [id number] Insurance [facility] CHOICE PLUS [facility] CHOICE PLUS [facility] CHOICE PLUS [place] [id number] [place] [employer] Advance Directives For more information, please contact: [phone] * Full Code (Latest Code Status on File) Date Activated Date Inactivated Comments 11/04/2019 10:50 AM 11/05/2019 12:47 AM Care Teams Sample Collector Relationship Specialty Start Date End Date Bhavin Jackson MD [address] [place] [address] PCP - General Internal Medicine 08/28/19
[2025-05-27 12:48] LABS: Hematocrit 34.3 % (42.0-52.0); Hemoglobin 11.1 g/dL (14.0-18.0); Mean Corpuscular HGB Conc 32.4 g/dl (32-36); Mean Corpuscular Hemoglobin 31.8 pg (26-34); Mean Corpuscular Volume 98.3 fl (80-100); Platelet Count Result 529 k/mm3 (150-375); Red Blood Count 3.49 M/mm3 (4.6-6.20); White Blood Count 12.9 K/mm3 (4.5-10.0)
[2025-05-27 13:12] LABS: Anion Gap 8 mmol/L (4-12); Blood Urea Nitrogen 12 mg/dL (9-20); Calcium 9.4 mg/dL (8.4-10.2); Carbon Dioxide 28 mmol/L (22-30); Chloride 102 mmol/L (98-107); Estimated Glomerular Filt Rate > 60; Glucose 105 mg/dL (65-110); Potassium 3.9 mmol/L (3.4-5.0); Sodium 138 mmol/L (137-145)
== END 2025-05-27 12:08 | disposition home or self-care (01) ==
LOC: ANHLAB 12:08
PROVIDERS: PCP Family Medicine; Visit Provider Internal Medicine
DX: D64.9 Anemia, unspecified (principal); A41.9 Sepsis, unspecified organism; I26.99 Other pulmonary embolism without acute cor pulmonale
CPT/HCPCS: 36415; 80048; 85027

== ENCOUNTER 2025-06-02 14:48 | Outpatient (CLI) | payer BC, SELFPAY ==
--- OUTSIDE RECORDS SUMMARY | 2025-06-02 14:57 | XMS_ITS | Encounter Summary ---
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
--- OUTSIDE RECORDS SUMMARY | 2025-06-02 14:57 | XMS_ITS | Referral Summary ---
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 Gender Identity Not on file Sexual Orientation Not on file Last Filed Vital Signs Vital Sign Reading Time Taken Comments Blood Pressure 116/69 11/04/2019 2:00 PM HERPETOLOGY TEACHER Pulse 75 11/04/2019 2:00 PM HERPETOLOGY TEACHER Temperature 36.2 C (97.2 F) 09/15/2020 2:06 PM HERPETOLOGY TEACHER Respiratory Rate 19 11/04/2019 2:00 PM HERPETOLOGY TEACHER Oxygen Saturation 94% 11/04/2019 2:00 PM HERPETOLOGY TEACHER Inhaled Oxygen Concentration - - Weight 93.7 kg (206 lb 9.6 oz) 11/04/2019 11:00 AM HERPETOLOGY TEACHER Height 177.8 cm (5' 10) 11/04/2019 11:00 AM HERPETOLOGY TEACHER Body Mass Index 29.64 11/04/2019 11:00 AM HERPETOLOGY TEACHER Plan of Treatment Not on file Medical Devices Implanted Type Area Caption Writer Device Identifier Shelf Expiration Date Model / Serial / Lot Maxine [employer] [id number] Persona Cruciate Retaining Knee Left 10 Standard Component - S - [id number] Implanted:Qty: 1 on 11/04/2019 by Bhavin Nick MD at [facility] Other - see comments Left: Knee [employer] [id number] 05/04/2029 [id number] / / [id number] [employer] [id number] Persona 16mm Cruciate Retain Knee Left 8-11 Ef Insert Articular Latex Free - S - [id number] Implanted:Qty: 1 on 11/04/2019 by Bhavin Nick MD at [facility] Other - see comments Left: Knee [employer] [id number] 02/03/2024 [id number] / / [id number] [employer] [id number] Persona 2 Peg Knee Left E Baseplate Tibial Trabecular Metal - S - [id number] Implanted:Qty: 1 on 11/04/2019 by Bhavin Nick MD at [facility] Other - see comments Left: Knee [employer] [id number] 09/04/2029 [id number] / / [id number] Insurance [facility] PLUS [facility] PL[facility] CHO[facility] PLUS [place] [id number] [place] [employer] Advance Directives For more information, please contact: [phone] * Full Code (Latest Code Status on File) Date Activated Date Inactivated Comments 11/04/2019 10:50 AM 11/05/2019 12:47 AM Care Teams Resident Care Coordinator Relationship Specialty Start Date End Date Bhavin Jackson MD [address] [place] [address] PCP - General Internal Medicine 08/28/19
--- OUTSIDE RECORDS SUMMARY | 2025-06-02 14:57 | XMS_ITS | Clinical Summary ---
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 Gender Identity Not on file Sexual Orientation Not on file Obstetrics History Last Filed Vital Signs Vital Sign Reading Time Taken Comments Blood Pressure 116/69 11/04/2019 2:00 PM SUPERVISOR AIR CONDITIONING INSTALLER Pulse 75 11/04/2019 2:00 PM SUPERVISOR AIR CONDITIONING INSTALLER Temperature 36.2 C (97.2 F) 09/15/2020 2:06 PM SUPERVISOR AIR CONDITIONING INSTALLER Respiratory Rate 19 11/04/2019 2:00 PM SUPERVISOR AIR CONDITIONING INSTALLER Oxygen Saturation 94% 11/04/2019 2:00 PM SUPERVISOR AIR CONDITIONING INSTALLER Inhaled Oxygen Concentration - - Weight 93.7 kg (206 lb 9.6 oz) 11/04/2019 11:00 AM SUPERVISOR AIR CONDITIONING INSTALLER Height 177.8 cm (5' 10) 11/04/2019 11:00 AM SUPERVISOR AIR CONDITIONING INSTALLER Body Mass Index 29.64 11/04/2019 11:00 AM SUPERVISOR AIR CONDITIONING INSTALLER Plan of Treatment Not on file Medical Devices Implanted Type Area Float Builder Device Identifier Shelf Expiration Date Model / Serial / Lot [employer] [id number] Persona Cruciate Retaining Knee Left 10 Standard Component - S - [id number] Implanted:Qty: 1 on 11/04/2019 by Bhavin Nick MD at [facility] Other - see comments Left: Knee [employer] [id number] 05/04/2029 [id number] / / [id number] [employer] [id number] Persona 16mm Cruciate Retain Knee Left 8-11 Ef Insert Articular Latex Free - S - [id number] Implanted:Qty: 1 on 11/04/2019 by Bhavin Nick MD at [facility] Other - see comments Left: Knee [employer] [id number] 02/03/2024 [id number] / / [id number] [employer] [id number] Persona 2 Peg Knee Left E Baseplate Tibial Trabecular Metal - S - [id number] Implanted:Qty: 1 on 11/04/2019 by Bhavin Nick MD at [facility] Other - see comments Left: Knee [employer] [id number] 09/04/2029 [id number] / / [id number] Insurance [facility] PL[facility] [place] [employer] Advance Directives For more information, please contact: [phone] * Full Code (Latest Code Status on File) Date Activated Date Inactivated Comments 11/04/2019 10:50 AM 11/05/2019 12:47 AM Care Teams Sales Record Clerk Relationship Specialty Start Date End Date Bhavin Jackson MD [address] [facility] [address] [place] [address] PCP - General Internal Medicine 08/28/19
[2025-06-02 15:11] LABS: Hematocrit 32.3 % (42.0-52.0); Hemoglobin 10.4 g/dL (14.0-18.0); Immature Granulocyte Percent A 2.3 % (0-0.5); Lymphocytes Absolute Auto 1.95 K/mm3 (0.9-3.2); Mean Corpuscular HGB Conc 32.2 g/dl (32-36); Mean Corpuscular Hemoglobin 32.0 pg (26-34); Mean Corpuscular Volume 99.4 fl (80-100); Nucleated Red Blood Cells Absolute Auto 0.000 K/mm3 (0.0-0.012); Nucleated Red Blood Cells Perc 0.0 % (0.0-0.2); Platelet Count Result 629 k/mm3 (150-375); Red Blood Count 3.25 M/mm3 (4.6-6.20); White Blood Count 10.4 K/mm3 (4.5-10.0)
== END 2025-06-02 14:49 | disposition home or self-care (01) ==
LOC: ANHLAB 14:49
PROVIDERS: PCP Family Medicine; Visit Provider Surgery
DX: D64.9 Anemia, unspecified (principal)
CPT/HCPCS: 36415; 85025

== ENCOUNTER 2025-06-11 11:41 | Outpatient (CLI) | payer OTHER, SELFPAY ==
--- OUTSIDE RECORDS SUMMARY | 2025-06-11 11:46 | XMS_ITS | Encounter Summary ---
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
--- OUTSIDE RECORDS SUMMARY | 2025-06-11 11:46 | XMS_ITS | Clinical Summary ---
Author Organization [facility] Address [address] [place] [address] Care Team Providers Care Ground School Instructor Name Role Phone Bhavin Jackson MD Primary Care Provider [phone] Allergies No known active allergies Medications lisinopril-hydro CHLOROthiazide (ZESTORETIC) 10-12.5 mg per tabletIndication s:hypertension Take 1 tablet by mouth early childhood education coordinator before breakfast Active celecoxib (CeleBREX) 200 mg [...] (09/30/2019): Added automatically from request for surgery [id number] Surgical follow-up care 02/23/2017 Neoplasm of skin [...] on file Legal Sex Male 6:34 AM FILER FINISH Gender Identity Not on file Sexual Orientation Not on file Obstetrics History Last Filed Vital Signs Vital Sign Reading Time Taken Comments Blood Pressure 116/69 11/04/2019 2:00 PM FILER FINISH Pulse 75 11/04/2019 2:00 PM FILER FINISH Temperature 36.2 C (97.2 F) 09/15/2020 2:06 PM FILER FINISH Respiratory Rate 19 11/04/2019 2:00 PM FILER FINISH Oxygen Saturation 94% 11/04/2019 2:00 PM FILER FINISH Inhaled Oxygen Concentration - - Weight 93.7 kg (206 lb 9.6 oz) 11/04/2019 11:00 AM FILER FINISH Height 177.8 cm (5' 10) 11/04/2019 11:00 AM FILER FINISH Body Mass Index 29.64 11/04/2019 11:00 AM FILER FINISH Plan of Treatment Not on file Medical Devices Implanted Type Area Equalizing Saw Operator Device Identifier Shelf Expiration Date Model / Serial / Lot [employer] [id number] Persona Cruciate Retaining Knee Left 10 Standard Component - S - [id number] Implanted:Qty: 1 on 11/04/2019 by Bhavin Nick MD at [facility] Other - see comments Left: Knee [employer] [id number] 05/04/2029 [id number] / / [id number] [employer] [id number] Persona 16mm Cruciate Retain Knee Left 8-11 Ef Insert Articular Latex Free - S - [id number] Implanted:Qty: 1 on 11/04/2019 by Bhavin Nick MD at [facility] Other - see comments Left: Knee [employer] [id number] 02/03/2024 [id number] / / [id number] [employer] [id number] Persona 2 Peg Knee Left E Baseplate Tibial Trabecular Metal - S - [id number] Implanted:Qty: 1 on 11/04/2019 by Bhavin Nick MD at [facility] Other - see comments Left: Knee [employer] [id number] 09/04/2029 [id number] / / [id number] Insurance [facility] CHO[facility] PLUS [facility] CHO[facility] PLUS [facility] CHOICE PLUS [place] [employer] Advance Directives For more information, please contact: [phone] * Full Code (Latest Code Status on File) Date Activated Date Inactivated Comments 11/04/2019 10:50 AM 11/05/2019 12:47 AM Care Teams Ground School Instructor Relationship Specialty Start Date End Date Bhavin Jackson MD [address] [facility] [address] [place] [address] PCP - General Internal Medicine 08/28/19
[2025-06-11 11:55] LABS: Hematocrit 32.6 % (42.0-52.0); Hemoglobin 10.3 g/dL (14.0-18.0); Immature Granulocyte Percent A 0.4 % (0-0.5); Lymphocytes Absolute Auto 2.01 K/mm3 (0.9-3.2); Mean Corpuscular HGB Conc 31.6 g/dl (32-36); Mean Corpuscular Hemoglobin 31.9 pg (26-34); Mean Corpuscular Volume 100.9 fl (80-100); Nucleated Red Blood Cells Absolute Auto 0.000 K/mm3 (0.0-0.012); Nucleated Red Blood Cells Perc 0.0 % (0.0-0.2); Platelet Count Result 372 k/mm3 (150-375); Red Blood Count 3.23 M/mm3 (4.6-6.20); White Blood Count 8.4 K/mm3 (4.5-10.0)
== END 2025-06-11 11:42 | disposition home or self-care (01) ==
PROVIDERS: PCP Family Medicine; Visit Provider Surgery
DX: D64.9 Anemia, unspecified (principal)
CPT/HCPCS: 36415; 85025

== ENCOUNTER 2025-07-07 12:09 | Outpatient (CLI) | payer OTHER, SELFPAY ==
--- OUTSIDE RECORDS SUMMARY | 2025-07-07 12:11 | XMS_ITS | Clinical Summary ---
Author Organization [facility] Address [address] [place] [address] Care Team Providers Care Crib Tender Name Role Phone Bhavin Jackson MD Primary Care Provider [phone] Allergies No known active allergies Medications lisinopril-hydro CHLOROthiazide (ZESTORETIC) 10-12.5 mg per tabletIndication s:hypertension Take 1 tablet by mouth telegraph mechanic before breakfast Active celecoxib (CeleBREX) 200 mg [...] (09/30/2019): Added automatically from request for surgery [id number] Surgical follow-up care 02/23/2017 Neoplasm of skin [...] on file Legal Sex Male 6:[address] LOCKSMITH Gender Identity Not on file Sexual Orientation Not on file Obstetrics History Last Filed Vital Signs Vital Sign Reading Time Taken Comments Blood Pressure 116/69 11/04/2019 2:[address] SERV[address] LOCKSMITH Pulse 75 11/04/2019 2:[address] LOCKSMITH Temperature 36.2 C (97.2 F) 09/15/2020 2:[address] SERVICE LOCKSMITH Respiratory Rate 19 11/04/2019 2:[address] LOCKSMITH Oxygen Saturation 94% 11/04/2019 2:[address] SERVICE LOCKSMITH Inhaled Oxygen Concentration - - Weight 93.7 kg (206 lb 9.6 oz) 11/04/2019 11:[address] SERVICE LOCKSMITH Height 177.8 cm (5' 10) 11/04/2019 11:[address] SERVICE LOCKSMITH Body Mass Index 29.64 11/04/2019 11:[address] SERVICE LOCKSMITH Plan of Treatment Not on file Medical Devices Implanted Type Area Chemical Laboratory Technician Device Identifier Shelf Expiration Date Model / Serial / Lot [employer] [id number] Persona Cruciate Retaining Knee Left 10 Standard Component - S - [id number] Implanted:Qty: 1 on 11/04/2019 by Bhavin Nick MD at [facility] Other - see comments Left: Knee [employer] [id number] 05/04/2029 [id number] / / [id number] [employer] [id number] Persona 16mm Cruciate Retain Knee Left 8-11 Ef Insert Articular Latex Free - S - [id number] Implanted:Qty: 1 on 11/04/2019 by Bhavin Nick MD at [facility] Other - see comments Left: Knee [employer] [id number] 02/03/2024 [id number] / / [id number] [employer] [id number] Persona 2 Peg Knee Left E Baseplate Tibial Trabecular Metal - S - [id number] Implanted:Qty: 1 on 11/04/2019 by Bhavin Nick MD at [facility] Other - see comments Left: Knee [employer] [id number] 09/04/2029 [id number] / / [id number] Insurance [facility] CHOICE PLUS [facility] CHOICE PLUS [facility] CHOICE PLUS [place] [employer] Advance Directives For more information, please contact: [phone] * Full Code (Latest Code Status on File) Date Activated Date Inactivated Comments 11/04/2019 10:50 AM 11/05/2019 12:47 AM Care Teams Crib Tender Relationship Specialty Start Date End Date Bhavin Jackson MD [address] [facility] [address] [place] [address] PCP - General Internal Medicine 08/28/19
--- OUTSIDE RECORDS SUMMARY | 2025-07-07 12:11 | XMS_ITS | Encounter Summary ---
Author Organization [facility] Healthcare Address [address] [place] [address] Care Team Providers Care Transport Operations Inspector Name Role Phone Bhavin Jackson MD Primary Care Provider [phone] Encounter Details Date Type Department Care Team (Late st Contact Info) Description 11/06/2019 Documentation [facility] Case Management [address] [place] [address] Lakesha Saez RN Social History Tobacco Use Types Packs/Day Years Used Date Smoking Tobacco: Never Smokeless Tobacco: Never Sex and Gender Information Value Date Recorded Sex Assigned at Not on file 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
[2025-07-07 12:53] LABS: Hematocrit 38.8 % (42.0-52.0); Hemoglobin 12.4 g/dL (14.0-18.0); Immature Granulocyte Percent A 0.3 % (0-0.5); Lymphocytes Absolute Auto 2.11 K/mm3 (0.9-3.2); Mean Corpuscular HGB Conc 32.0 g/dl (32-36); Mean Corpuscular Hemoglobin 31.9 pg (26-34); Mean Corpuscular Volume 99.7 fl (80-100); Nucleated Red Blood Cells Absolute Auto 0.000 K/mm3 (0.0-0.012); Nucleated Red Blood Cells Perc 0.0 % (0.0-0.2); Platelet Count Result 354 k/mm3 (150-375); Red Blood Count 3.89 M/mm3 (4.6-6.20); White Blood Count 8.6 K/mm3 (4.5-10.0)
== END 2025-07-07 12:10 | disposition home or self-care (01) ==
LOC: ANHLAB 12:10
PROVIDERS: PCP Family Medicine; Visit Provider Surgery
DX: D64.9 Anemia, unspecified (principal)
CPT/HCPCS: 36415; 85025